=== PATIENT | male | born 1950 | race African-American/Black ===

== ENCOUNTER 2017-09-25 17:10 | Outpatient (CLI) | payer OTHER ==
[~2017-09-25] VITALS: Ht 175.3 cm; Wt 55.8 kg
[2017-09-25] MEDS ORDERED: NS IV 500 ML 500 ML IV SCH (17:59)
[2017-09-25 18:06] VITALS: BP 136/64
[2017-09-25 20:38] VITALS: BP 132/67
[2017-09-25 20:57] VITALS: BP 116/55
[2017-09-25 23:09] VITALS: BP 118/59
[2017-09-25 23:16] VITALS: BP 114/66
[2017-09-25 23:31] VITALS: BP 128/65
[2017-09-26 01:36] VITALS: BP 124/59
--- NOTE | 2017-10-06 14:44 | Physician Query-Final Dx ---
MERY MAK 10/06/17 1444: Clinic Account Progress/Dx Physician Query: Please give diagnosis Date of Service Sep 25, 2017 at 17:10 Progress Note: Mery [phone] EDITH PINEDA 10/20/17 1106: MERY MAK Oct 06, 2017 14:44 EDITH PINEDA Oct 20, 2017 11:06
== END 2017-09-26 06:45 | disposition home or self-care (01) ==
LOC: 4THo 17:10
PROVIDERS: ATTEND Internal Medicine
DX: D50.9 Iron deficiency anemia, unspecified (principal)
CPT/HCPCS: 36430; 86850; 86900; 86901; 86920

== ENCOUNTER 2017-09-28 11:09 | Inpatient (IN) | payer OTHER ==
[~2017-09-28] VITALS: Ht 175.3 cm; Wt 53.5 kg
[2017-09-28] VITALS (9 sets, daily range): BP systolic 114–137; BP diastolic 55–64
[2017-09-28] MEDS ORDERED: NS IV 1000 ML 1,000 ML IV ONE (11:50)
[2017-09-28 12:00] LABS: BASOPHILS # (AUTO) 0.1 10^3/uL (0.0-0.1); BASOPHILS % (AUTO) 0 % (0-10); EOSINOPHILS % (AUTO) 0 % (0-10); LYMPHOCYTES # (AUTO) 2.3 X 10^3 (1.0-4.0); LYMPHOCYTES % (AUTO) 10 % (12-44); MEAN CORPUSCULAR HEMOGLOBIN 31 PG (25-34); MEAN CORPUSCULAR HGB CONC 32 G/DL (32-36); MEAN CORPUSCULAR VOLUME 98 FL (80-99); MEAN PLATELET VOLUME 10.4 FL (7.4-10.4); MONOCYTES # (AUTO) 1.3 X 10^3 (0.0-1.0); MONOCYTES % (AUTO) 6 % (0-12); NEUTROPHILS % (AUTO) 84 % (42-75); PLATELET COUNT 385 10^3/uL (130-400); RED BLOOD COUNT 2.02 10^6/uL (4.35-5.85); RED CELL DISTRIBUTION WIDTH 18.2 % (10.0-14.5); WHITE BLOOD COUNT 22.7 10^3/uL (4.3-11.0)
[2017-09-28 12:03] LABS: HEMATOCRIT 20 % (40-54); HEMOGLOBIN 6.3 G/DL (13.3-17.7)
[2017-09-28] MEDS ORDERED: NS IV 500 ML 500 ML IV SCH ×2 (12:07→16:30)
--- NOTE | 2017-09-28 12:11 | ED General ---
General Chief Complaint: Abdominal/GI Problems Stated Complaint: CANNOT WALK,WEAKNESS Nursing Triage Note: PT TO ROOM 10 VIA WC BY STAFF ASSIST. CO WEAKNESS AND PASSING BLOOD IN STOOL. DENIES ABD. PAIN. PT WAS TRANSUFSED X2 UNITS BLOOD ON THURSDAY. Nursing Sepsis Screen: No Definite Risk Source of Information: Patient Exam Limitations: No Limitations History of Present Illness Date Seen by Provider: Sep 28, 2017 Time Seen by Provider: 11:51 Initial Comments Here with report of weakness. This is been going on for a month. He states this started on when he was fishing and he passed out. He was doing better until last had another fall. 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 He reports that he has increasing shortness of air with activity. Apparently was transfused 2 units of blood cells last Thursday when he had hemoglobin and found to be low last week at the clinic. He presented to the clinic due to syncope and not feeling well. He reports that he has continued shortness of breath. Denies nausea, vomiting or diarrhea. Does report blood in his stools. Timing/Duration: 1 Week, Getting Worse Severity: Moderate Associated Systoms: No Cough, No Fever/Chills; Loss of Appetite; No Nausea/ Vomiting; Shortness of Air, Weakness Allergies and Home Medications Allergies Coded Allergies: No Known Drug Allergies (Unverified , 09/25/17) Patient Home Medication List Home Medication List Reviewed: Yes Review of Systems Constitutional: see HPI; No chills, No fever; malaise, weakness EENTM: no symptoms reported Respiratory: dyspnea on exertion, short of breath Cardiovascular: No chest pain, No edema; palpitations Gastrointestinal: No hematemesis; melena; No nausea, No vomiting Genitourinary: no symptoms reported Musculoskeletal: no symptoms reported Skin: no symptoms reported All Other Systems Reviewed Negative Unless Noted: Yes Past Gstwanw-Tcffet-Sefgdw Hx Past Med/Social Hx: Reviewed Nursing Past Med/Soc Hx Patient Social History Alcohol Use: Denies Use Recreational Drug Use: No Smoking Status: Never a Smoker Recent Foreign Travel: No Contact w/Someone Who Travel: No Recent Infectious Disease Expo: No Recent Hopitalizations: Yes (BLOOD TRANSFUSIONS) Physical Abuse: No Sexual Abuse: No Past Medical History Surgeries: No Respiratory: No Cardiac: No Neurological: No Genitourinary: No Gastrointestinal: Yes Gastrointestinal Bleed Musculoskeletal: No Endocrine: No HEENT: No Nursing Suicide Risk Score: 0 Adverse Reaction/Blood Tranf: No Family Medical History No Pertinent Family Hx Physical Exam Vital Signs Vital Signs - First Documented 09/28/17 11:15 Temp 96.7 Pulse 101 Resp 16 B/P (MAP) 118/67 (84) Pulse Ox 99 O2 Delivery Room Air Capillary Refill : Less Than 3 Seconds General Appearance: No Apparent Distress, WD/WN HEENT: PERRL/EOMI, Pharynx Normal Neck: Non Tender, Supple Respiratory: Lungs Clear, Normal Breath Sounds Cardiovascular: No Murmur, Tachycardia Gastrointestinal: Non Tender, Soft Back: Normal Inspection, No CVA Tenderness, No Vertebral Tenderness Extremity: Normal Range of Motion, Non Tender Neurologic/Psychiatric: Alert, Oriented x3 Skin: Normal Color, Warm/Dry Focused Exam Lactate Level 09/28/17 14:27: Lactic Acid Level 1.70 Lactic Acid Level Laboratory Tests Test 09/28/17 14:27 Lactic Acid Level 1.70 MMOL/L (0.50-2.00) Progress/Results/Core Measures Suspected Sepsis Recent Fever Within 48 Hours: No Infection Criteria Present: None New/Unexplained Altered Menta: No Sepsis Screen: No Definite Risk SIRS Temperature:96.7 Pulse: 101 Respiratory Rate: 16 Laboratory Tests 09/28/17 11:35: White Blood Count 22.7H Blood Pressure 118 /67 Mean: 84 09/28/17 14:27: Lactic Acid Level 1.70 Laboratory Tests 09/28/17 11:35: Creatinine 0.82, INR Comment 1.1, Platelet Count 385, Total Bilirubin 0.4 Results/Orders Lab Results Laboratory Tests Test 09/28/17 11:35 09/28/17 14:27 09/28/17 14:41 Range/Units White Blood Count 22.7 H 4.3-11.0 10^3/uL Red Blood Count 2.02 L 4.35-5.85 10^6/uL Hemoglobin 6.3 *L 13.3-17.7 G/DL Hematocrit 20 *L 40-54 % Mean Corpuscular Volume 98 80-99 FL Mean Corpuscular Hemoglobin 31 25-34 PG Mean Corpuscular Hemoglobin Concent 32 32-36 G/DL Red Cell Distribution Width 18.2 H 10.0-14.5 % Platelet Count 385 130-400 10^3/uL Mean Platelet Volume 10.4 7.4-10.4 FL Neutrophils (%) (Auto) 84 H 42-75 % Lymphocytes (%) (Auto) 10 L 12-44 % Monocytes (%) (Auto) 6 0-12 % Eosinophils (%) (Auto) 0 0-10 % Basophils (%) (Auto) 0 0-10 % Neutrophils # (Auto) 19.0 H 1.8-7.8 X 10^3 Lymphocytes # (Auto) 2.3 1.0-4.0 X 10^3 Monocytes # (Auto) 1.3 H 0.0-1.0 X 10^3 Eosinophils # (Auto) 0.0 0.0-0.3 10^3/uL Basophils # (Auto) 0.1 0.0-0.1 10^3/uL Neutrophils % (Manual) 80 % Lymphocytes % (Manual) 6 % Monocytes % (Manual) 11 % Eosinophils % (Manual) 0 % Basophils % (Manual) 0 % Band Neutrophils 3 % Nucleated Red Blood Cells 1 Polychromasia MODERATE Poikilocytosis SLIGHT Anisocytosis MODERATE Target Cells SLIGHT Stomatocytes SLIGHT Helmet Cells SLIGHT Elliptocytes SLIGHT Acanthocytes SLIGHT Prothrombin Time 13.9 12.2-14.7 SEC INR Comment 1.1 0.8-1.4 Activated Partial Thromboplast Time 23 L 24-35 SEC Sodium Level 134 L 135-145 MMOL/L Potassium Level 4.2 3.6-5.0 MMOL/L Chloride Level 103 98-107 MMOL/L Carbon Dioxide Level 21 21-32 MMOL/L Anion Gap 10 5-14 MMOL/L Blood Urea Nitrogen 23 H 7-18 MG/DL Creatinine 0.82 0.60-1.30 MG/DL Estimat Glomerular Filtration Rate > 60 BUN/Creatinine Ratio 28 Glucose Level 145 H 70-105 MG/DL Calcium Level 8.5 8.5-10.1 MG/DL Total Bilirubin 0.4 0.1-1.0 MG/DL Aspartate Amino Transf (AST/SGOT) 13 5-34 U/L Alanine Aminotransferase (ALT/SGPT) 14 0-55 U/L Alkaline Phosphatase 55 40-136 U/L Troponin I < 0.30 <0.30 NG/ML Total Protein 5.9 L 6.4-8.2 GM/DL Albumin 3.4 3.2-4.5 GM/DL Lactic Acid Level 1.70 0.50-2.00 MMOL/L My Orders Orders - VINEET CARRASCO MD Cbc With Automated Diff (09/28/17 11:50) Comprehensive Metabolic Panel (09/28/17 11:50) Protime With Inr (09/28/17 11:50) Partial Thromboplastin Time (09/28/17 11:50) Troponin I (09/28/17 11:50) Ua Culture If Indicated (09/28/17 11:50) Chest 1 View, Ap/Pa Only (09/28/17 11:50) Ekg Tracing (09/28/17 11:50) Monitor-Rhythm Ecg Trace Only (09/28/17 11:50) Ct Head Wo (09/28/17 11:50) Saline Lock/Iv-Start (09/28/17 11:50) Ns Iv 1000 Ml (Sodium Chloride 0.9%) (09/28/17 11:50) Manual Differential (09/28/17 11:35) Consent-Obtain Consent For (09/28/17 12:07) Ns Iv 500 Ml (Sodium Chloride 0.9%) (09/28/17 12:07) Red Cells Leukocytes Reduced (09/28/17 12:07) Type And Screen (09/28/17 12:07) Ct Chest/Abdomen/Pelvis W (09/28/17 12:50) Iohexol Injection (Omnipaque 350 Mg/Ml 1 (09/28/17 13:00) Ns (Ivpb) (Sodium Chloride 0.9% Ivpb Bag (09/28/17 13:00) Blood Culture (09/28/17 13:57) Lactic Acid Analyzer (09/28/17 13:57) Medications Given in ED Current Medications Medications Dose Ordered Sig/Layla Route Start Time Stop Time Status Last Admin Dose Admin Iohexol 100 ml ONCE ONCE IV 09/28/17 13:00 09/28/17 13:07 DC 09/28/17 13:39 100 ML Sodium Chloride 100 ml ONCE ONCE IV 09/28/17 13:00 09/28/17 13:07 DC 09/28/17 13:39 100 ML Sodium Chloride 1,000 ml @ 0 mls/hr Q0M ONCE IV 09/28/17 11:50 09/28/17 11:53 DC 09/28/17 12:39 0 MLS/HR Vital Signs/I&O 09/28/17 09/28/17 09/28/17 11:15 13:46 14:01 Temp 96.7 96.7 96.6 Pulse 101 92 89 Resp 16 16 18 B/P (MAP) 118/67 (84) 135/59 121/59 Pulse Ox 99 99 99 O2 Delivery Room Air Room Air Room Air Capillary Refill : Less Than 3 Seconds Blood Pressure Mean: 84 Progress Note : Progress Note Seen and evaluated. IV, labs, EKG and chest x-ray ordered. Blood cultures and lactic acid elevated due to high white count. We will get CT of the head given his previous falls and blood dyscrasias. Monitor patient. 1210: Hemoglobin noted. 6.3. Type and cross for 4 units and anticipate transfusing 2. Patient will require admission. He was due to see Dr. Morris tomorrow in clinic. I will call him regarding consult. 1250: [place] lesion noted on chest x-ray. I discussed the case with the radiologist. We will get CT of the chest with contrast. Due to rectal bleeding and now concerns about cancer, I will go ahead and get contrast scan just pelvis since he is getting the contrast anyway. Type and cross pending still. Monitor patient. 1300: I discussed the case with Dr. Morris. He will see the patient in consult. Pending CT scans. 1420: Admit, inpatient status. Per she noted blood has been initiated. Patient will require additional blood transfusion. Also found probable metastatic lung cancer and metastatic disease to the adrenal gland all on the left side. This will need further workup. Discuss with her primary, Dr. Norman. She accepts patient for admission. Admit, inpatient status. Patient agrees to plan. ECG Initial ECG Impression Date: Sep 28, 2017 Initial ECG Impression Time: 11:56 Initial ECG Rate: 89 Initial ECG Rhythm: Normal Sinus Comment Sinus rhythm with PACs. No evidence of ST elevation VA. Left axis deviation. No previous available for comparison. Interpreted by me. Diagnostic Imaging Diagonstic Imaging: Xray Plain Films/CT/US/NM/MRI: [facility] [place] [place] NAME: DAVID TRAYLOR [facility] REC#: [id number] PT STATUS: REG ER : 1950 PHYSICIAN: VINEET CARRASCO MD ADMIT DATE: 09/28/17/ER Draft Date of Exam:09/28/17 CHEST 1 VIEW, AP/PA ONLY INDICATION: Weakness. COMPARISON: None. FINDINGS: A single frontal view of the chest was obtained. The heart size is normal. There is no central venous congestion. There is, however, some nodular prominence of the left hilum. This may be due to pulmonary artery enlargement although underlying adenopathy is not excluded. The right hilum appears unremarkable. There are findings suggestive of COPD. Additionally, there is a 2.1 cm nodule in the left midlung with possible central cavitation. This is nonspecific and could represent an area of pulmonary abscess or infectious or granulomatous process with cavitation or possibly neoplasm. A CT scan of the chest is suggested for further evaluation. IMPRESSION: There is a 2.1 cm indeterminate possible cavitary nodule in the left midlung and there is some nodular prominence of the left hilum, concerning for some underlying adenopathy or at minimum pulmonary artery enlargement. A CT scan of the chest is recommended for further evaluation. Chronic findings of COPD are also suspected. The report was called to DARIAN Maldonado [facility] by MAK@ 12:32PM. Dictated on workstation # [id number] Dict: 09/28/17 1221 Trans: 09/28/17 1233 MAK [id number] Interpreted by: ANTHONY POWER DO Electronically signed by: Shaniqua Imaging: CT Plain Films/CT/US/NM/MRI: head Comments VIA [place], [place] NAME: DAVID TRAYLOR Simi [facility] REC#: [id number] PT STATUS: REG ER : 1950 PHYSICIAN: VINEET CARRASCO MD ADMIT DATE: 09/28/17/ER Draft Date of Exam:09/28/17 CT HEAD WO PROCEDURE: CT head without contrast. TECHNIQUE: Multiple contiguous axial images were obtained through the brain without the use of intravenous contrast. INDICATION: Weakness and lightheadedness Comparison: None Findings: No acute intracranial hemorrhage, mass effect or edema is seen. Bowen-white junction is preserved. Ventricles appear normal. There are a few minimal subtle areas of hypodensity in the periventricular white matter, which is nonspecific but likely related to chronic microvascular ischemic change. No acute focal lesion is suspected. The paranasal sinuses and mastoids are clear as visualized. IMPRESSION: No acute intracranial abnormalities demonstrated. Dictated on workstation # [id number] Dict: 09/28/17 1225 Trans: 09/28/17 1230 [facility] [id number] Interpreted by: ANTHONY POWER DO Electronically signed by: Samanthagonstic Imaging: CT Plain Films/CT/US/NM/MRI: abdomen, pelvis Comments [place]IA [place], [place] NAME: DAVID TRAYLOR [facility] REC#: [id number] PT STATUS: REG ER : 1950 PHYSICIAN: VINEET CARRASCO MD ADMIT DATE: 09/28/17/ER Draft Date of Exam:09/28/17 CT CHEST/ABDOMEN/PELVIS W PROCEDURE: CT chest, abdomen, and pelvis with contrast. TECHNIQUE: Multiple contiguous axial images were obtained through the chest, abdomen, and pelvis after the administration of intravenous contrast. INDICATION: Abdominal pain and weakness. No prior studies are available for comparison. CT chest: No axillary lymphadenopathy is identified. No mediastinal lymphadenopathy is seen. There is a mass in the left hilum measuring 2.5 cm in diameter. Right hilum is unremarkable. No pericardial or pleural fluid is detected. Severe centrilobular emphysematous changes are identified in both lungs. There is a cavitary mass in the superior segment of the left lower lobe measuring 2.2 cm in diameter. No other lung masses are seen. CT abdomen and pelvis: Right lobe of liver contains tiny low densities, too small to characterize but likely cysts. The gallbladder is unremarkable. The pancreas and spleen are unremarkable. Left adrenal gland is unremarkable. There is a mass involving the right adrenal gland measuring 7.3 x 6.2 cm. This does not appear to be fat containing. Kidneys are unremarkable. Aorta is nonaneurysmal. The small and large bowel loops are of normal caliber. No obstruction is seen. There is no ascites. The bladder is unremarkable. The prostate gland is unremarkable. IMPRESSION: 1. Cavitary mass superior segment left lower lobe. There is also left hilar mass. Features are concerning for primary lung malignancy with left hilar metastasis. In addition, there is a large mass involving the right adrenal gland, suggestive of a metastatic lesion as well. No other significant abnormality in the abdomen or pelvis is seen. Dictated on workstation # [id number] Dict: 09/28/17 1346 Trans: 09/28/17 1359 [facility] [id number] Interpreted by: PEARL SHAVER MD Electronically signed by: Departure Communication (Admissions) Time/Spoke to Admitting Phy: 14:21 Time/Spoke to Consulting Phy: 12:56 Impression Primary Impression: Profound anemia Qualified Codes: D64.9 - Anemia, unspecified Additional Impressions: Lung mass Adrenal mass, left Disposition: ADMITTED INPATIENT Condition: Stable Admissions Decision to Admit Reason: Admit from ER (General) Decision to Admit/Date: Sep 28, 2017 Time/Decision to Admit Time: 14:21 Departure-Patient Inst. Referrals: NO,LOCAL PHYSICIAN (PCP/Family) Primary Care Physician VINEET CARRASCO MD Sep 28, 2017 12:11
[2017-09-28 12:27] LABS: ALANINE AMINOTRANSFERASE 14 U/L (0-55); ALBUMIN 3.4 GM/DL (3.2-4.5); ALKALINE PHOSPHATASE 55 U/L (40-136); BILIRUBIN,TOTAL 0.4 MG/DL (0.1-1.0); BUN/CREATININE RATIO 28; CALCIUM 8.5 MG/DL (8.5-10.1); CARBON DIOXIDE 21 MMOL/L (21-32); CHLORIDE 103 MMOL/L (98-107); CREATININE SERUM 0.82 MG/DL (0.60-1.30); GFR ESTIMATED > 60; GLUCOSE 145 MG/DL (70-105); POTASSIUM 4.2 MMOL/L (3.6-5.0); SODIUM 134 MMOL/L (135-145); TOTAL PROTEIN 5.9 GM/DL (6.4-8.2)
--- NOTE | 2017-09-28 12:30 | Diagnostic Imaging Report ---
PROCEDURE: CT head without contrast. TECHNIQUE: Multiple contiguous axial images were obtained through the brain without the use of intravenous contrast. INDICATION: Weakness and lightheadedness Comparison: None Findings: No acute intracranial hemorrhage, mass effect or edema is seen. Bowen-white junction is preserved. Ventricles appear normal. There are a few minimal subtle areas of hypodensity in the periventricular white matter, which is nonspecific but likely related to chronic microvascular ischemic change. No acute focal lesion is suspected. The paranasal sinuses and mastoids are clear as visualized. IMPRESSION: No acute intracranial abnormalities demonstrated. Dictated by: Dictated on workstation # [id number]
--- NOTE | 2017-09-28 12:33 | Diagnostic Imaging Report ---
INDICATION: Weakness. COMPARISON: None. FINDINGS: A single frontal view of the chest was obtained. The heart size is normal. There is no central venous congestion. There is, however, some nodular prominence of the left hilum. This may be due to pulmonary artery enlargement although underlying adenopathy is not excluded. The right hilum appears unremarkable. There are findings suggestive of COPD. Additionally, there is a 2.1 cm nodule in the left midlung with possible central cavitation. This is nonspecific and could represent an area of pulmonary abscess or infectious or granulomatous process with cavitation or possibly neoplasm. A CT scan of the chest is suggested for further evaluation. IMPRESSION: There is a 2.1 cm indeterminate possible cavitary nodule in the left midlung and there is some nodular prominence of the left hilum, concerning for some underlying adenopathy or at minimum pulmonary artery enlargement. A CT scan of the chest is recommended for further evaluation. Chronic findings of COPD are also suspected. The report was called to DAR[facility] Maldonado [facility] by MAK@ 12:32PM. Dictated by: Dictated on workstation # [id number]
[2017-09-28 12:56] LABS: INR 1.1 (0.8-1.4); PROTHROMBIN TIME PATIENT 13.9 SEC (12.2-14.7)
[2017-09-28] MEDS ORDERED: NS 100 ML (IVPB) BAG IV ONE (13:00)
[2017-09-28] MEDS ORDERED: IOHEXOL 350 MG/ML 100 ML (OMNIPAQUE 350) VIAL IV ONE (13:00)
[2017-09-28 13:23] LABS: ANISOCYTOSIS MODERATE; BAND NEUTROPHILS 3 %; BASOPHILS % (MANUAL) 0 %; EOSINOPHILS % (MANUAL) 0 %; LYMPHOCYTES % (MANUAL) 6 %; MONOCYTES % (MANUAL) 11 %; NEUTROPHILS % (MANUAL) 80 %; POIKILOCYTOSIS SLIGHT; POLYCHROMASIA MODERATE
[2017-09-28 13:24] LABS: ACANTHOCYTES SLIGHT; ELLIPT/OVALOCYTES SLIGHT; HELMET/BITE CELLS SLIGHT; NUCLEATED RED BLOOD CELLS 1; STOMATOCYTES SLIGHT; TARGET CELLS SLIGHT
--- NOTE | 2017-09-28 13:59 | Diagnostic Imaging Report ---
PROCEDURE: CT chest, abdomen, and pelvis with contrast. TECHNIQUE: Multiple contiguous axial images were obtained through the chest, abdomen, and pelvis after the administration of intravenous contrast. INDICATION: Abdominal pain and weakness. No prior studies are available for comparison. CT chest: No axillary lymphadenopathy is identified. No mediastinal lymphadenopathy is seen. There is a mass in the left hilum measuring 2.5 cm in diameter. Right hilum is unremarkable. No pericardial or pleural fluid is detected. Severe centrilobular emphysematous changes are identified in both lungs. There is a cavitary mass in the superior segment of the left lower lobe measuring 2.2 cm in diameter. No other lung masses are seen. CT abdomen and pelvis: Right lobe of liver contains tiny low densities, too small to characterize but likely cysts. The gallbladder is unremarkable. The pancreas and spleen are unremarkable. Left adrenal gland is unremarkable. There is a mass involving the right adrenal gland measuring 7.3 x 6.2 cm. This does not appear to be fat containing. Kidneys are unremarkable. Aorta is nonaneurysmal. The small and large bowel loops are of normal caliber. No obstruction is seen. There is no ascites. The bladder is unremarkable. The prostate gland is unremarkable. IMPRESSION: 1. Cavitary mass superior segment left lower lobe. There is also left hilar mass. Features are concerning for primary lung malignancy with left hilar metastasis. In addition, there is a large mass involving the right adrenal gland, suggestive of a metastatic lesion as well. No other significant abnormality in the abdomen or pelvis is seen. Dictated by: Dictated on workstation # [id number]
[2017-09-28 14:47] LABS: BILIRUBIN,URINE NEGATIVE (NEGATIVE); CLARITY,URINE CLEAR; COLOR,URINE YELLOW; GLUCOSE, URINE (UA) NEGATIVE (NEGATIVE); KETONES,URINE NEGATIVE (NEGATIVE); LEUKOCYTE ESTERASE ,URINE NEGATIVE (NEGATIVE); NITRITE,URINE NEGATIVE (NEGATIVE); PH,URINE 5 (5-9); PROTEIN,URINE 1+ (NEGATIVE); UROBILINOGEN,URINE NORMAL (NORMAL)
[2017-09-28 15:09] LABS: BACTERIA,URINE NEGATIVE /HPF; WBC,URINE RARE /HPF
--- NOTE | 2017-09-28 15:26 | Consultation ---
History of Present Illness History of Present Illness Patient Consulted On(emiliano/time) 09/28/17 15:21 Time Seen by Provider: 14:48 History of Present Illness Surgery asked to consult regarding GI bleed and anemia. HPI per ED: Here with report of weakness. This is been going on for a month. He states this started on when he was fishing and he passed out. He was doing better until last had another fall. 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 He reports that he has increasing shortness of air with activity. Apparently was transfused 2 units of blood cells last Thursday when he had hemoglobin and found to be low last week at the clinic. He presented to the clinic due to syncope and not feeling well. He reports that he has continued shortness of breath. Denies nausea, vomiting or diarrhea. Does report blood in his stools. Timing/Duration: 1 Week, Getting Worse Severity: Moderate Associated Systoms: No Cough, No Fever/Chills; Loss of Appetite; No Nausea/ Vomiting; Shortness of Air, Weakness Pt was actually scheduled to see me in the office tomorrow. He states he has actually seen blood in his BM's for about 6-7 months; "but has been light and only recently has it started looking tarry". He denies abdominal pain, denies constipation. He states he has been able to eat all weekend because he has been so weak, but is hungry. Allergies and Home Medications Allergies Coded Allergies: No Known Drug Allergies (Unverified , 09/25/17) Patient Home Medication List Home Medication List Reviewed: Yes Past Kukdgvs-Iujiqz-Gliavy Hx Patient Social History Alcohol Use: Denies Use Recreational Drug Use: Yes Drug of Choice: POT Smoking Status: Current Everyday Smoker Type Used: Cigarettes Recent Foreign Travel: No Contact w/Someone Who Travel: No Recent Infectious Disease Expo: No Recent Hopitalizations: Yes (BLOOD TRANSFUSIONS) Surgeries History of Surgeries: No Respiratory History of Respiratory Disorde: No Cardiovascular History of Cardiac Disorders: No Neurological History of Neurological Disord: No Genitourinary History of Genitourinary Disor: No Gastrointestinal History of Gastrointestinal Di: Yes Gastrointestinal Disorders: Gastrointestinal Bleed Musculoskeletal History of Musculoskeletal Dis: No Endocrine History of Endocrine Disorders: No HEENT History of HEENT Disorders: No Psychosocial History of Psychiatric Problem: No Integumentary History of Skin or Integumenta: No Blood Transfusions History of Blood Disorders: Yes Adverse Reaction to a Blood Tr: No Family Medical History Significant Family History: Cancer (prostate, lung and brain) Review of Systems-General Constitutional: No chills, No diaphoresis; dizziness, malaise, weakness EENTM: No blurred vision, No double vision, No mouth pain, No mouth swelling, No epistaxis, No throat swelling Respiratory: No cough, No dyspnea on exertion, No hemoptysis, No short of breath Cardiovascular: No chest pain, No edema, No palpitations Gastrointestinal: No abdominal pain, No constipation, No diarrhea, No hematemesis; melena, other (hematochezia) Genitourinary: No dysuria; frequency; No hematuria; hesitancy, nocturia Musculoskeletal: No back pain; joint pain, joint swelling, muscle stiffness Skin: No change in color, No change in hair/nails Psychiatric/Neurological: Denies Anxiety, Denies Depressed, Denies Seizure, Denies Tingling, Denies Tremors Other pt denies any abnormal bleeding or bruising, denies any heat or cold intolerance Physical Exam-General Problems Physical Exam Vital Signs Vital Signs - First Documented 09/28/17 11:15 Temp 96.7 Pulse 101 Resp 16 B/P (MAP) 118/67 (84) Pulse Ox 99 O2 Delivery Room Air Capillary Refill : Less Than 3 Seconds General Appearance: mild distress, thin Eyes: Bilateral Eye PERRL, Bilateral Eye EOMI HEENT: pharynx normal; No scleral icterus (R), No scleral icterus (L), No pale conjunctivae (R), No pale conjunctivae (L); other (poor dentition) Neck: non-tender, full range of motion, supple, normal inspection Respiratory: chest non-tender, lungs clear, normal breath sounds, no respiratory distress Cardiovascular: regular rate, rhythm, no edema, no gallop, no JVD, no murmur Gastrointestinal: normal bowel sounds, non tender, soft, no organomegaly, no pulsatile mass Back: no CVA tenderness, no vertebral tenderness Extremities: normal range of motion, non-tender, normal inspection, no pedal edema, no calf tenderness 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, no motor/sensory deficits, alert, normal mood/affect, oriented x 3 Skin: normal color, warm/dry Lymphatic: no adenopathy (neck, axilla or groin) Data Review Labs Laboratory Tests 09/28/17 11:35: White Blood Count 22.7H, Red Blood Count 2.02L, Hemoglobin 6.3*L, Hematocrit 20* L, Mean Corpuscular Volume 98, Mean Corpuscular Hemoglobin 31, Mean Corpuscular Hemoglobin Concent 32, Red Cell Distribution Width 18.2H, Platelet Count 385, Mean Platelet Volume 10.4, Neutrophils (%) (Auto) 84H, Lymphocytes (%) (Auto) 10L, Monocytes (%) (Auto) 6, Eosinophils (%) (Auto) 0, Basophils (%) (Auto) 0, Neutrophils # (Auto) 19.0H, Lymphocytes # (Auto) 2.3, Monocytes # (Auto) 1.3H, Eosinophils # (Auto) 0.0, Basophils # (Auto) 0.1, Neutrophils % (Manual) 80, Lymphocytes % (Manual) 6, Monocytes % (Manual) 11, Eosinophils % (Manual) 0, Basophils % (Manual) 0, Band Neutrophils 3, Nucleated Red Blood Cells 1, Polychromasia MODERATE, Poikilocytosis SLIGHT, Anisocytosis MODERATE, Target Cells SLIGHT, Stomatocytes SLIGHT, Helmet Cells SLIGHT, Elliptocytes SLIGHT, Acanthocytes SLIGHT, Prothrombin Time 13.9, INR Comment 1.1, Activated Partial Thromboplast Time 23L, Sodium Level 134L, Potassium Level 4.2, Chloride Level 103, Carbon Dioxide Level 21, Anion Gap 10, Blood Urea Nitrogen 23H, Creatinine 0.82, Estimat Glomerular Filtration Rate > 60, BUN/Creatinine Ratio 28, Glucose Level 145H, Calcium Level 8.5, Total Bilirubin 0.4, Aspartate Amino Transf (AST/ SGOT) 13, Alanine Aminotransferase (ALT/SGPT) 14, Alkaline Phosphatase 55, Troponin I < 0.30, Total Protein 5.9L, Albumin 3.4 09/28/17 14:27: Lactic Acid Level 1.70 09/28/17 14:41: Urine Color YELLOW, Urine Clarity CLEAR, Urine pH 5, Urine Specific [place] 1.010L, Urine Protein 1+H, Urine Glucose (UA) NEGATIVE, Urine Ketones NEGATIVE, Urine Nitrite NEGATIVE, Urine Bilirubin NEGATIVE, Urine Urobilinogen NORMAL, Urine Leukocyte Esterase NEGATIVE, Urine RBC (Auto) NEGATIVE, Urine RBC NONE, Urine WBC RARE, Urine Squamous Epithelial Cells NONE, Urine Renal Epithelial Cells NONE, Urine Crystals NONE, Urine Bacteria NEGATIVE, Urine Casts NONE, Urine Mucus NEGATIVE, Urine Culture Indicated NO Assessment/Plan Assessment/Plan Assessment/Plan 1. GI Bleed 2. Anemia secondary to #1 3. Lung mass x 2, suspected Lung CA 3. Adrenal mass - right Pt is being admitted for his anemia and medicine will work up lung masses. He is currently getting transfused and will get IVF and pain control as needed. I told pt to drink/eat lots of clear fluids (jello, broth, juices) and will give him bowel prep to do colonoscopy tomorrow. Discussed risks and complications not limited to pain, bleeding, infection and possible intestinal perforation. All questions answered to his satisfaction. [facility]. NURA KENDRICK DO Sep 28, 2017 15:26
[2017-09-28] MEDS ORDERED: BISACODYL 5 MG (DULCOLAX) TABLET PO NR (15:45)
[2017-09-28] MEDS ORDERED: MAGNESIUM CITRATE 300 ML BTL PO NR (15:45)
[2017-09-28] MEDS ORDERED: ONDANSETRON 4 MG/2 ML (SDV) Z0FRAN IV PRN (16:30)
[2017-09-28] MEDS ORDERED: CATHETER FLUSH 10 ML SYR IV PRN (16:30)
[2017-09-28] MEDS ORDERED: fentaNYL INJECTION 100 MCG/2 ML AMP IV PRN (16:30)
[2017-09-28] MEDS: NS IV 1000 ML 1,000 ML IV SCH (17:03)
[2017-09-28] MEDS ORDERED: RT-ALBUTEROL SULF 2.5 MG/3 ML PRE-MIX VIAL INH PRN (19:45)
[2017-09-29] VITALS (12 sets, daily range): BP systolic 90–127; BP diastolic 50–59
[2017-09-29 07:44] LABS: BASOPHILS # (AUTO) 0.1 10^3/uL (0.0-0.1); BASOPHILS % (AUTO) 0 % (0-10); EOSINOPHILS # (AUTO) 0.1 10^3/uL (0.0-0.3); EOSINOPHILS % (AUTO) 1 % (0-10); LYMPHOCYTES # (AUTO) 1.9 X 10^3 (1.0-4.0); LYMPHOCYTES % (AUTO) 11 % (12-44); MEAN CORPUSCULAR HEMOGLOBIN 30 PG (25-34); MEAN CORPUSCULAR HGB CONC 32 G/DL (32-36); MEAN CORPUSCULAR VOLUME 94 FL (80-99); MEAN PLATELET VOLUME 10.2 FL (7.4-10.4); MONOCYTES # (AUTO) 1.3 X 10^3 (0.0-1.0); MONOCYTES % (AUTO) 7 % (0-12); NEUTROPHILS # (AUTO) 13.7 X 10^3 (1.8-7.8); NEUTROPHILS % (AUTO) 80 % (42-75); PLATELET COUNT 285 10^3/uL (130-400); RED BLOOD COUNT 2.14 10^6/uL (4.35-5.85); RED CELL DISTRIBUTION WIDTH 19.4 % (10.0-14.5)
[2017-09-29 07:47] LABS: HEMOGLOBIN 6.5 G/DL (13.3-17.7)
[2017-09-29 07:48] LABS: HEMATOCRIT 20 % (40-54)
[2017-09-29] MEDS: NS IV 1000 ML 1,000 ML IV SCH (07:48)
[2017-09-29] MEDS ORDERED: IBUP-30 PO (07:49)
[2017-09-29] MEDS ORDERED: CALC500T7 PO (07:52)
[2017-09-29 07:59] LABS: ALANINE AMINOTRANSFERASE 14 U/L (0-55); ALBUMIN 2.6 GM/DL (3.2-4.5); ALKALINE PHOSPHATASE 41 U/L (40-136); BILIRUBIN,TOTAL 0.8 MG/DL (0.1-1.0); BUN/CREATININE RATIO 28; CALCIUM 7.2 MG/DL (8.5-10.1); CARBON DIOXIDE 22 MMOL/L (21-32); CHLORIDE 107 MMOL/L (98-107); CREATININE SERUM 0.74 MG/DL (0.60-1.30); GFR ESTIMATED > 60; GLUCOSE 145 MG/DL (70-105); POTASSIUM 4.1 MMOL/L (3.6-5.0); SODIUM 135 MMOL/L (135-145); TOTAL PROTEIN 4.2 GM/DL (6.4-8.2)
[2017-09-29] MEDS ORDERED: NS IV 500 ML 500 ML IV SCH (08:12)
[2017-09-29] MEDS ORDERED: MAGNESIUM CITRATE 300 ML BTL PO NR (08:30)
--- NOTE | 2017-09-29 10:04 | History & Physicial (CHS) ---
HPI History of Present Illness: Pt seen at [facility] clinic on 09/25 with report of passing out while fishing because he "got overheated". His Hgb in the office on 09/25 was 7.3, he was also noted to have hemoccult positive stools. He was apparently transfused two units PRBC last Thursday due to his symptomatic anemia. He has continued to have weakness, dizziness, and blood in his stool, as well as shortness of breath. When he had another fall, he presented to the ED yesterday and was found to have a hemoglobin of 6.3. He was also noted to have a lung mass with suspected metastatic disease to both other areas of lung and his adrenal gland. General surgery was consulted secondary to his report of bloody stools and the patient was admitted for transfusion of PRBC and stabilization. Pt was originally scheduled to see Dr. Morris in his office this week regarding blood in his stools, which has been present for ~6 months. Source: RN/, RN notes reviewed, old records Date seen by provider: Sep 29, 2017 Time Seen by Provider: 18:00 Attending Physician Carmencita Norman DO PCP Alicia FARMER, [facility] SEK Consult General Surgery - Dr. Morris Date of Admission Sep 28, 2017 at 15:29 Home Medications Home Medications Reviewed patient Home Medication Reconciliation performed by pharmacy medication reconciliations fabrication technician and/or nursing. Patients Allergies have been reviewed. Allergies Coded Allergies: codeine (Verified Allergy, Unknown, 09/28/17) DTA-Fyzguq-Tbkyvz Hx Patient Social History Marrital Status: Living Status: lives independently Employed/Student: unemployed Alcohol Use: Rarely Uses Recreational Drug Use: No Drug of Choice: POT Smoking Status: Current Everyday Smoker Type Used: Cigarettes Recent Foreign Travel: No Contact w/other who traveled: No Recent Hopitalizations: Yes (BLOOD TRANSFUSIONS - as outpatient) Recent Infectious Disease Expo: No Physical Abuse Screen: No Sexual Abuse: No Immunizations Up To Date Tetanus Booster (TDap): Unknown Past Medical History Tobacco Abuse THC Abuse Bloody Stools x6 months Family Medical History Significant Family History: Cancer (prostate, lung and brain) Family History: Cancer 19 MOTHER G8 SISTER (bone cancer) FH: cancer Review of Systems ([facility]) Constitutional: see HPI EENTM: no symptoms reported Respiratory: see HPI, dyspnea on exertion, short of breath Cardiovascular: see HPI, syncope Gastrointestinal: see HPI Genitourinary: no symptoms reported Musculoskeletal: no symptoms reported Skin: no symptoms reported Psychiatric/Neurological: No Symptoms Reported Reviewed Test Results Reviewed Test Results Lab 09/28/17 14:27: Lactic Acid Level 1.70 Laboratory Tests Test 09/28/17 11:35 09/28/17 14:27 09/28/17 14:41 09/29/17 06:55 Range/Units White Blood Count 22.7 H 17.0 H 4.3-11.0 10^3/uL Red Blood Count 2.02 L 2.14 L 4.35-5.85 10^6/uL Hemoglobin 6.3 *L 6.5 *L 13.3-17.7 G/DL Hematocrit 20 *L 20 *L 40-54 % Mean Corpuscular Volume 98 94 80-99 FL Mean Corpuscular Hemoglobin 31 30 25-34 PG Mean Corpuscular Hemoglobin Concent 32 32 32-36 G/DL Red Cell Distribution Width 18.2 H 19.4 H 10.0-14.5 % Platelet Count 385 285 130-400 10^3/uL Mean Platelet Volume 10.4 10.2 7.4-10.4 FL Neutrophils (%) (Auto) 84 H 80 H 42-75 % Lymphocytes (%) (Auto) 10 L 11 L 12-44 % Monocytes (%) (Auto) 6 7 0-12 % Eosinophils (%) (Auto) 0 1 0-10 % Basophils (%) (Auto) 0 0 0-10 % Neutrophils # (Auto) 19.0 H 13.7 H 1.8-7.8 X 10^3 Lymphocytes # (Auto) 2.3 1.9 1.0-4.0 X 10^3 Monocytes # (Auto) 1.3 H 1.3 H 0.0-1.0 X 10^3 Eosinophils # (Auto) 0.0 0.1 0.0-0.3 10^3/uL Basophils # (Auto) 0.1 0.1 0.0-0.1 10^3/uL Neutrophils % (Manual) 80 % Lymphocytes % (Manual) 6 % Monocytes % (Manual) 11 % Eosinophils % (Manual) 0 % Basophils % (Manual) 0 % Band Neutrophils 3 % Nucleated Red Blood Cells 1 Polychromasia MODERATE Poikilocytosis SLIGHT Anisocytosis MODERATE Target Cells SLIGHT Stomatocytes SLIGHT Helmet Cells SLIGHT Elliptocytes SLIGHT Acanthocytes SLIGHT Prothrombin Time 13.9 12.2-14.7 SEC INR Comment 1.1 0.8-1.4 Activated Partial Thromboplast Time 23 L 24-35 SEC Sodium Level 134 L 135 135-145 MMOL/L Potassium Level 4.2 4.1 3.6-5.0 MMOL/L Chloride Level 103 107 98-107 MMOL/L Carbon Dioxide Level 21 22 21-32 MMOL/L Anion Gap 10 6 5-14 MMOL/L Blood Urea Nitrogen 23 H 21 H 7-18 MG/DL Creatinine 0.82 0.74 0.60-1.30 MG/DL Estimat Glomerular Filtration Rate > 60 > 60 BUN/Creatinine Ratio 28 28 Glucose Level 145 H 145 H 70-105 MG/DL Calcium Level 8.5 7.2 L 8.5-10.1 MG/DL Total Bilirubin 0.4 0.8 0.1-1.0 MG/DL Aspartate Amino Transf (AST/SGOT) 13 18 5-34 U/L Alanine Aminotransferase (ALT/SGPT) 14 14 0-55 U/L Alkaline Phosphatase 55 41 40-136 U/L Troponin I < 0.30 <0.30 NG/ML Total Protein 5.9 L 4.2 L 6.4-8.2 GM/DL Albumin 3.4 2.6 L 3.2-4.5 GM/DL Lactic Acid Level 1.70 0.50-2.00 MMOL/L Urine Color YELLOW Urine Clarity CLEAR Urine pH 5 5-9 Urine Specific [place] 1.010 L 1.016-1.022 Urine Protein 1+ H NEGATIVE Urine Glucose (UA) NEGATIVE NEGATIVE Urine Ketones NEGATIVE NEGATIVE Urine Nitrite NEGATIVE NEGATIVE Urine Bilirubin NEGATIVE NEGATIVE Urine Urobilinogen NORMAL NORMAL MG/DL Urine Leukocyte Esterase NEGATIVE NEGATIVE Urine RBC (Auto) NEGATIVE NEGATIVE Urine RBC NONE /HPF Urine WBC RARE /HPF Urine Squamous Epithelial Cells NONE /HPF Urine Renal Epithelial Cells NONE /HPF Urine Crystals NONE /LPF Urine Bacteria NEGATIVE /HPF Urine Casts NONE /LPF Urine Mucus NEGATIVE /LPF Urine Culture Indicated NO Radiology Date of Exam: 09/28/17 CT HEAD WO PROCEDURE: CT head without contrast. TECHNIQUE: Multiple contiguous axial images were obtained through the brain without the use of intravenous contrast. INDICATION: Weakness and lightheadedness Comparison: None Findings: No acute intracranial hemorrhage, mass effect or edema is seen. Bowen-white junction is preserved. Ventricles appear normal. There are a few minimal subtle areas of hypodensity in the periventricular white matter, which is nonspecific but likely related to chronic microvascular ischemic change. No acute focal lesion is suspected. The paranasal sinuses and mastoids are clear as visualized. IMPRESSION: No acute intracranial abnormalities demonstrated. Date of Exam: 09/28/17 CHEST 1 VIEW, AP/PA ONLY INDICATION: Weakness. COMPARISON: None. FINDINGS: A single frontal view of the chest was obtained. The heart size is normal. There is no central venous congestion. There is, however, some nodular prominence of the left hilum. This may be due to pulmonary artery enlargement although underlying adenopathy is not excluded. The right hilum appears unremarkable. There are findings suggestive of COPD. Additionally, there is a 2.1 cm nodule in the left midlung with possible central cavitation. This is nonspecific and could represent an area of pulmonary abscess or infectious or granulomatous process with cavitation or possibly neoplasm. A CT scan of the chest is suggested for further evaluation. IMPRESSION: There is a 2.1 cm indeterminate possible cavitary nodule in the left midlung and there is some nodular prominence of the left hilum, concerning for some underlying adenopathy or at minimum pulmonary artery enlargement. A CT scan of the chest is recommended for further evaluation. Chronic findings of COPD are also suspected. Date of Exam: 09/28/17 CT CHEST/ABDOMEN/PELVIS W PROCEDURE: CT chest, abdomen, and pelvis with contrast. TECHNIQUE: Multiple contiguous axial images were obtained through the chest, abdomen, and pelvis after the administration of intravenous contrast. INDICATION: Abdominal pain and weakness. No prior studies are available for comparison. CT chest: No axillary lymphadenopathy is identified. No mediastinal lymphadenopathy is seen. There is a mass in the left hilum measuring 2.5 cm in diameter. Right hilum is unremarkable. No pericardial or pleural fluid is detected. Severe centrilobular emphysematous changes are identified in both lungs. There is a cavitary mass in the superior segment of the left lower lobe measuring 2.2 cm in diameter. No other lung masses are seen. CT abdomen and pelvis: Right lobe of liver contains tiny low densities, too small to characterize but likely cysts. The gallbladder is unremarkable. The pancreas and spleen are unremarkable. Left adrenal gland is unremarkable. There is a mass involving the right adrenal gland measuring 7.3 x 6.2 cm. This does not appear to be fat containing. Kidneys are unremarkable. Aorta is nonaneurysmal. The small and large bowel loops are of normal caliber. No obstruction is seen. There is no ascites. The bladder is unremarkable. The prostate gland is unremarkable. IMPRESSION: 1. Cavitary mass superior segment left lower lobe. There is also left hilar mass. Features are concerning for primary lung malignancy with left hilar metastasis. In addition, there is a large mass involving the right adrenal gland, suggestive of a metastatic lesion as well. No other significant abnormality in the abdomen or pelvis is seen. Physical Exam-([facility]) Physical Exam Vital Signs VS - Last 72 Hours, by Label 09/28/17 09/28/17 09/28/17 09/28/17 11:15 13:46 14:01 15:13 Temp 96.7 96.7 96.6 97.0 Pulse 101 92 89 83 Resp 16 16 18 19 B/P (MAP) 118/67 (84) 135/59 121/59 117/60 Pulse Ox 99 99 99 99 O2 Delivery Room Air Room Air Room Air Room Air 09/28/17 09/28/17 09/28/17 09/28/17 16:01 16:30 18:48 18:48 Temp 97.7 Pulse 85 90 Resp 18 B/P (MAP) 137/64 (88) Pulse Ox 97 93 93 O2 Delivery Room Air Room Air Room Air FiO2 21 09/28/17 09/28/17 09/28/17 09/28/17 19:59 20:00 20:25 23:00 Temp 98.9 98.9 98.8 98.6 Pulse 89 89 82 74 Resp 18 18 20 18 B/P (MAP) 114/55 114/55 (74) 115/58 119/59 Pulse Ox 97 97 95 96 O2 Delivery Room Air Room Air Room Air Room Air 09/29/17 09/29/17 09/29/17 09/29/17 00:19 04:15 07:27 07:43 Temp 98.3 98.5 98.3 Pulse 76 82 80 Resp 18 18 16 B/P (MAP) 110/55 (73) 121/55 (77) 106/53 (70) Pulse Ox 97 96 97 O2 Delivery Room Air Room Air Room Air Room Air 09/29/17 09/29/17 09/29/17 09/29/17 09:25 09:50 11:46 12:13 Temp 97.1 98.5 98.9 97.7 Pulse 80 76 71 71 Resp 18 18 18 18 B/P (MAP) 106/52 119/57 106/57 106/57 Pulse Ox 97 97 99 98 O2 Delivery Room Air Room Air Room Air Room Air 09/29/17 09/29/17 09/29/17 09/29/17 12:15 12:35 13:30 15:10 Temp 97.7 97.9 97.2 97.7 Pulse 75 69 72 69 Resp 16 18 16 18 B/P (MAP) 106/57 (73) 111/59 90/50 127/59 (81) Pulse Ox 98 97 100 96 O2 Delivery Room Air Room Air Room Air Room Air 09/29/17 09/29/17 09/30/17 09/30/17 19:15 22:37 00:29 03:49 Temp 98.9 97.7 97.8 Pulse 81 88 72 Resp 18 19 17 B/P (MAP) 121/57 (78) 115/57 (76) 115/61 (79) Pulse Ox 97 98 97 O2 Delivery Room Air Room Air Room Air Room Air 09/30/17 09/30/17 09/30/17 09/30/17 08:00 09:00 10:54 12:00 Temp 98.8 99.5 Pulse 103 77 Resp 22 20 B/P (MAP) 128/78 (95) 137/55 (82) Pulse Ox 98 95 O2 Delivery Room Air Room Air Room Air Room Air 09/30/17 15:45 Temp 99.1 Pulse 78 Resp 18 B/P (MAP) 114/67 (83) Pulse Ox 96 O2 Delivery Room Air Capillary Refill : Less Than 3 Seconds General Appearance: WD/WN, no apparent distress Eyes: Bilateral Eye EOMI HEENT: normal ENT inspection, pale conjunctivae (R), pale conjunctivae (L) Neck: non-tender, full range of motion, supple, normal inspection Respiratory: chest non-tender, lungs clear, no respiratory distress, no accessory muscle use Cardiovascular: regular rate, rhythm, no edema, no gallop, no JVD, systolic murmur Gastrointestinal: normal bowel sounds, non tender, soft, no pulsatile mass; No guarding, No rebound Rectal: deferred Back: normal inspection, no CVA tenderness, no vertebral tenderness, muscle spasm Extremities: normal range of motion, non-tender, normal inspection, no pedal edema, no calf tenderness, slow capillary refill 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 Morris consulted -pt had outpatient transfusion last Thursday of 2 units for symptomatic anemia Qualifiers: Qualified Codes: D64.9 - Anemia, unspecified (2) Bloody stools Status: Chronic Assessment & Plan: 09/29 -approximately 6 months of bloody stools, but worse in the last several weeks (3) Lung mass Status: Acute Assessment & Plan: -left side -mass in both upper and lower lobe, suspected malignancy with lung as primary site (4) Adrenal mass Assessment & Plan: -noted on CT Scan, suspected to be metastatic in nature with lung as primary source although this has not yet been confirmed -right side (5) Metastatic disease Assessment & Plan: -previously undiagnosed, suspected lung as primary site with lesions in both upper and lower lobes of left lung and right adrenal mass (6) Leukocytosis Status: Acute Assessment & Plan: 09/29 -22.7 --> 17 -suspect noninfectious in nature Qualifiers: Qualified Codes: D72.829 - Elevated white blood cell count, unspecified (7) Tobacco abuse Status: Chronic Assessment & Plan: cessation encouraged (8) Hyponatremia Status: Resolved Assessment & Plan: 09/29 -134 --> 135 (9) Hypocalcemia Status: Acute Assessment & Plan: 09/29 -8.5 --> 7.2 (10) Hypoproteinemia Status: Acute Assessment & Plan: 09/29 -5.9 --> 4.2 -will check prealbumin (11) Hypoalbuminemia Status: Acute Assessment & Plan: 09/29 -3.4 --> 2.6 -will check prealbumin (12) Low BMI Status: Chronic Assessment & Plan: BMI 17 Clinical Quality Measures DVT/VTE Risk/Contraindication: Risk Factor Score Per Nursin RFS Level Per Nursing on Admit: 3=High Copy Copies To 1: [facility]/CARMENCITA ARREAGA DO Sep 29, 2017 10:04
[2017-09-29] MEDS ORDERED: CALCIUM CARBONATE 500 MG (TUMS) TAB.CHEW PO PRN (10:30)
[2017-09-29] MEDS ORDERED: PROPOFOL INJECTION 50 ML IV ONE (12:48)
[2017-09-29] MEDS ORDERED: MIDAZOLAM 2 MG/2 ML (VERSED) VIAL ONE (12:49)
[2017-09-29] MEDS ORDERED: LACTATED RINGERS 1,000 ML IV ONE ×2 (13:07→13:30)
--- NOTE | 2017-09-29 14:43 | Progress Note-Post Operative ---
Post-Operative Progess Note Surgeon (s)/Crown Ironer Operator (s) Surgeon NURA KENDRICK DO Crown Ironer Operator: none Pre-Operative Diagnosis GI bleed, anemia Post-Operative Diagnosis Same Colon polyps (descending and sigmoid) Int hemorrhoids poor prep Procedure & Operative Findings Date of Procedure 09/29/17 Procedure Performed/Findings Colon with snare Anesthesia Type IV sedation by TUCKPOINTER Estimated Blood Loss Estimated blood loss (mL): scant Specimens/Packing Specimens Removed Small Descending colon polyp Large Sigmoid polyp NURA KENDRICK DO Sep 29, 2017 14:43
--- NOTE | 2017-09-29 22:21 | OPERATIVE REPORT ---
DATE OF SERVICE: 09/29/2017 PREOPERATIVE DIAGNOSES: Gastrointestinal bleed, anemia. POSTOPERATIVE DIAGNOSES: 1. Gastrointestinal bleed, anemia. 2. Colon polyps, one in the descending and one in the sigmoid colon. 3. Internal hemorrhoids. 4. Poor prep. PROCEDURE: Colonoscopy with snare polypectomy. SURGEON: NURA KENDRICK DO OUTPATIENT DIETITIAN: None. ANESTHESIA: IV sedation by COUNTRY MANAGER. BLOOD LOSS: Scant. SPECIMEN: One small polyp from the descending colon and one large polyp from the sigmoid colon. FLUIDS: Per anesthesia. POSTOPERATIVE CONDITION: Stable. INDICATION FOR PROCEDURE: The patient is a 67-year-old male who had rectal bleeding for the past six months. He has had bright red blood, which then recently turned to black tarry stool, found to be anemic, needed a workup colonoscopy. FINDINGS: The patient unfortunately had a poor prep, had a lot of black liquid as well as black flecks in the colon, did see one small descending colon polyp, which was snared and then the large sigmoid polyp, which was snared, some internal hemorrhoids, but no other obvious pathology seen. PROCEDURE NOTE: After informed consent was obtained, the patient was brought to the endoscopy suite, placed in the bed in left lateral decubitus position. He was administered IV sedation by the COUNTRY MANAGER who then monitored her vitals the entire time, heart rate, blood pressure and pulse ox and the scope was then inserted. Immediately upon entry noted a lot of black liquid as well as some black flecks of material. Able to push all the way to about 150 cm, able to get all the way to cecum, took a picture of appendiceal orifice, noted the ileocecal valve, tried to get into the terminal ileum, but was unable to get into the terminal ileum, did not see any bright red blood. Started withdrawing the scope insufflating to look circumferentially phillips as well as suction out as much of the liquid and black flecks as possible flushing with saline, pulling back up the ascending colon to the hepatic flexure and then down the transverse colon, the splenic flexure and then into the descending colon. In the descending colon saw small polyp, did snare polypectomy and suctioned this up and then continued down into the sigmoid. In the sigmoid, saw a very large polyp. Did snare polypectomy, and then had to grasp this with a Whiltey Net, pulled the scope all the way out and then pushed the scope back into the spot and then slowly withdrawn down through the rest of the sigmoid colon into the rectum, retroflexed the rectal vault, saw some internal hemorrhoids. I did not see any other obvious pathology. I did not see diverticula. It was a poor prep, so could have missed something, but I do not see any obvious bleeding from the colon. This may be bleeding from upper GI, patient probably needs an EGD, unfortunately did not get permission to do this, so could not do this at the same time. The patient was recovered in the endoscopy suite. Job ID: [id number] DocumentID: [id number] Dictated Date: 09/29/2017 14:47:35 Customer Support Engineer Date: 09/29/2017 22:20:22 Dictated By: NURA KENDRICK DO
[2017-09-30] VITALS (9 sets, daily range): BP systolic 114–137; BP diastolic 55–78
[2017-09-30] MEDS: NS IV 1000 ML 1,000 ML IV SCH ×2 (00:20→08:30)
[2017-09-30 05:46] LABS: BASOPHILS # (AUTO) 0.1 10^3/uL (0.0-0.1); BASOPHILS % (AUTO) 0 % (0-10); EOSINOPHILS # (AUTO) 0.1 10^3/uL (0.0-0.3); EOSINOPHILS % (AUTO) 1 % (0-10); HEMATOCRIT 22 % (40-54); HEMOGLOBIN 7.3 G/DL (13.3-17.7); LYMPHOCYTES # (AUTO) 1.8 X 10^3 (1.0-4.0); LYMPHOCYTES % (AUTO) 11 % (12-44); MEAN CORPUSCULAR HEMOGLOBIN 31 PG (25-34); MEAN CORPUSCULAR HGB CONC 33 G/DL (32-36); MEAN CORPUSCULAR VOLUME 93 FL (80-99); MEAN PLATELET VOLUME 10.2 FL (7.4-10.4); MONOCYTES # (AUTO) 1.2 X 10^3 (0.0-1.0); MONOCYTES % (AUTO) 8 % (0-12); NEUTROPHILS % (AUTO) 81 % (42-75); PLATELET COUNT 246 10^3/uL (130-400); RED BLOOD COUNT 2.38 10^6/uL (4.35-5.85); RED CELL DISTRIBUTION WIDTH 18.3 % (10.0-14.5); WHITE BLOOD COUNT 16.1 10^3/uL (4.3-11.0)
[2017-09-30 06:46] LABS: BUN/CREATININE RATIO 34; CALCIUM 7.3 MG/DL (8.5-10.1); CARBON DIOXIDE 19 MMOL/L (21-32); CHLORIDE 109 MMOL/L (98-107); CREATININE SERUM 0.71 MG/DL (0.60-1.30); GFR ESTIMATED > 60; GLUCOSE 107 MG/DL (70-105); MAGNESIUM 1.9 MG/DL (1.8-2.4); POTASSIUM 4.3 MMOL/L (3.6-5.0); SODIUM 134 MMOL/L (135-145)
--- NOTE | 2017-09-30 09:51 | Progress Note (SOAP) ---
Subjective Subjective/Events-last exam Pt reports he "is not doing very well today'. Reports that he just generally feels bad - gets very dizzy and lightheaded when getting up to the bathroom. Discussed plan for EGD in AM per Dr. Morris, pt is hopeful this will result in a solution to his continued bleeding and symptomatic anemia. Pt reports he has a family history of cancer, his sister is currently undergoing treatment for bone cancer in . Pt reports he has been a heavy smoker for many years. Discussed that while his findings were concerning for malignancy, the diagnosis would need confirmation and further workup, which we would likely do on an outpatient basis once we could get his symptomatic anemia under control. Pt states he "isn't all that worried about it, just about fixing this bleeding issue". Reports that he has been having RUQ pain intermittently for about a month, but none currently. Review of Systems Date Seen by Provider: Sep 30, 2017 Time Seen by Provider: 14:17 General: No Chills, No Night Sweats; Fatigue HEENT: No Dysphasia Pulmonary: Dyspnea; No Cough Cardiovascular: Lt Headedness; No: Chest Pain, Edema Gastrointestinal: No: Nausea, Vomiting, Abdominal Pain Genitourinary: No Dysuria Neurological: Weakness; No: Incoordination, Change in speech, Confusion, Seizures Focused Exam Lactate Level 09/28/17 14:27: Lactic Acid Level 1.70 Objective Exam Last Set of Vital Signs Vital Signs Date Time Temp Pulse Resp B/P (MAP) Pulse Ox O2 Delivery O2 Flow Rate FiO2 09/30/17 08:00 98.8 103 22 128/78 (95) 98 Room Air 09/28/17 18:48 21 Capillary Refill : Less Than 3 Seconds I&O Intake and Output 09/30/17 00:00 Intake Total 1640 ml Balance 1640 ml Intake Oral 1190 ml IV Total 450 ml # Voids 4 # Bowel Movements 4 General: Alert, Oriented X3, Cooperative, No Acute Distress HEENT: Atraumatic, EOMI, Mucous Memb Moist/[place] Neck: Supple, No Thyromegaly Lungs: Clear to Auscultation, Normal Air Movement Heart: Regular Rate, Normal S1, Normal S2, Other (systolic murmur) Abdomen: Normal Bowel Sounds, Soft, No Tenderness Extremities: No Clubbing, No Cyanosis, No Edema, Normal Pulses Skin: No Rashes, No Significant Lesion Neuro: Normal Speech, Normal Tone, Sensation Intact, Cranial Nerves 3-12 NL Psych/Mental Status: Mental Status NL, Mood NL Results/Procedures Lab Laboratory Tests 09/29/17 14:05: Lab Scanned Report Transfusion Reaction Form 09/30/17 05:25: White Blood Count 16.1H, Red Blood Count 2.38L, Hemoglobin 7.3L, Hematocrit 22L , Mean Corpuscular Volume 93, Mean Corpuscular Hemoglobin 31, Mean Corpuscular Hemoglobin Concent 33, Red Cell Distribution Width 18.3H, Platelet Count 246, Mean Platelet Volume 10.2, Neutrophils (%) (Auto) 81H, Lymphocytes (%) (Auto) 11L, Monocytes (%) (Auto) 8, Eosinophils (%) (Auto) 1, Basophils (%) (Auto) 0, Neutrophils # (Auto) 13.0H, Lymphocytes # (Auto) 1.8, Monocytes # (Auto) 1.2H, Eosinophils # (Auto) 0.1, Basophils # (Auto) 0.1, Sodium Level 134L, Potassium Level 4.3, Chloride Level 109H, Carbon Dioxide Level 19L, Anion Gap 6, Blood Urea Nitrogen 24H, Creatinine 0.71, Estimat Glomerular Filtration Rate > 60, BUN /Creatinine Ratio 34, Glucose Level 107H, Calcium Level 7.3L, Magnesium Level 1.9 Microbiology 09/28/17 Blood Culture - Preliminary, Resulted No growth Radiology Date of Exam: 09/28/17 CT HEAD WO PROCEDURE: CT head without contrast. TECHNIQUE: Multiple contiguous axial images were obtained through the brain without the use of intravenous contrast. INDICATION: Weakness and lightheadedness Comparison: None Findings: No acute intracranial hemorrhage, mass effect or edema is seen. Bowen-white junction is preserved. Ventricles appear normal. There are a few minimal subtle areas of hypodensity in the periventricular white matter, which is nonspecific but likely related to chronic microvascular ischemic change. No acute focal lesion is suspected. The paranasal sinuses and mastoids are clear as visualized. IMPRESSION: No acute intracranial abnormalities demonstrated. Date of Exam: 09/28/17 CHEST 1 VIEW, AP/PA ONLY INDICATION: Weakness. COMPARISON: None. FINDINGS: A single frontal view of the chest was obtained. The heart size is normal. There is no central venous congestion. There is, however, some nodular prominence of the left hilum. This may be due to pulmonary artery enlargement although underlying adenopathy is not excluded. The right hilum appears unremarkable. There are findings suggestive of COPD. Additionally, there is a 2.1 cm nodule in the left midlung with possible central cavitation. This is nonspecific and could represent an area of pulmonary abscess or infectious or granulomatous process with cavitation or possibly neoplasm. A CT scan of the chest is suggested for further evaluation. IMPRESSION: There is a 2.1 cm indeterminate possible cavitary nodule in the left midlung and there is some nodular prominence of the left hilum, concerning for some underlying adenopathy or at minimum pulmonary artery enlargement. A CT scan of the chest is recommended for further evaluation. Chronic findings of COPD are also suspected. Date of Exam: 09/28/17 CT CHEST/ABDOMEN/PELVIS W PROCEDURE: CT chest, abdomen, and pelvis with contrast. TECHNIQUE: Multiple contiguous axial images were obtained through the chest, abdomen, and pelvis after the administration of intravenous contrast. INDICATION: Abdominal pain and weakness. No prior studies are available for comparison. CT chest: No axillary lymphadenopathy is identified. No mediastinal lymphadenopathy is seen. There is a mass in the left hilum measuring 2.5 cm in diameter. Right hilum is unremarkable. No pericardial or pleural fluid is detected. Severe centrilobular emphysematous changes are identified in both lungs. There is a cavitary mass in the superior segment of the left lower lobe measuring 2.2 cm in diameter. No other lung masses are seen. CT abdomen and pelvis: Right lobe of liver contains tiny low densities, too small to characterize but likely cysts. The gallbladder is unremarkable. The pancreas and spleen are unremarkable. Left adrenal gland is unremarkable. There is a mass involving the right adrenal gland measuring 7.3 x 6.2 cm. This does not appear to be fat containing. Kidneys are unremarkable. Aorta is nonaneurysmal. The small and large bowel loops are of normal caliber. No obstruction is seen. There is no ascites. The bladder is unremarkable. The prostate gland is unremarkable. IMPRESSION: 1. Cavitary mass superior segment left lower lobe. There is also left hilar mass. Features are concerning for primary lung malignancy with left hilar metastasis. In addition, there is a large mass involving the right adrenal gland, suggestive of a metastatic lesion as well. No other significant abnormality in the abdomen or pelvis is seen. Assessment/Plan Assessment/Plan (1) Profound anemia Status: Acute Assessment & Plan: 09/29 -Hgb 6.3 --> transfused 2 units --> 6.5 this AM -transfuse additional 2 units today -Dr. Morris consulted -pt had outpatient transfusion last Thursday of 2 units for symptomatic anemia 09/30 -6.3 --> 6.5 --> 7.3 -continues to be symptomatic -upper endoscopy planned for tomorrow morning Qualifiers: Qualified Codes: D64.9 - Anemia, unspecified (2) Bloody stools Status: Chronic Assessment & Plan: 09/29 -approximately 6 months of bloody stools, but worse in the last several weeks (3) Lung mass Status: Acute Assessment & Plan: -left side -mass in both upper and lower lobe, suspected malignancy with lung as primary site (4) Adrenal mass Assessment & Plan: -noted on CT Scan, suspected to be metastatic in nature with lung as primary source although this has not yet been confirmed -right side (5) Metastatic disease Assessment & Plan: -previously undiagnosed, suspected lung as primary site with lesions in both upper and lower lobes of left lung and right adrenal mass 09/30 -discussed with pt that we would likely have this continued to be evaluated on an outpatient basis once we had his acute issues under control (6) Leukocytosis Status: Acute Assessment & Plan: 09/29 -22.7 --> 17 -suspect noninfectious in nature Qualifiers: Qualified Codes: D72.829 - Elevated white blood cell count, unspecified (7) Tobacco abuse Status: Chronic Assessment & Plan: cessation encouraged (8) Hyponatremia Status: Acute Assessment & Plan: 09/29 -134 --> 135 09/30 -134 --> 135 --> 134 (9) Hypocalcemia Status: Acute Assessment & Plan: 09/29 -8.5 --> 7.2 09/30 -8.5 --> 7.2 --> 7.3 (10) Hypoproteinemia Status: Acute Assessment & Plan: 09/29 -5.9 --> 4.2 -will check prealbumin 09/30 -prealbumin pending (11) Hypoalbuminemia Status: Acute Assessment & Plan: 09/29 -3.4 --> 2.6 -will check prealbumin 09/30 -prealbumin pending (12) Low BMI Status: Chronic Assessment & Plan: BMI 17 Clinical Quality Measures DVT/VTE Risk/Contraindication: Risk Factor Score Per Nursin RFS Level Per Nursing on Admit: 3=High Copy Copies To 1: [facility]/MEEK ARREAGA DO Sep 30, 2017 09:51
--- NOTE | 2017-09-30 12:44 | Progress Note-Standard ---
Standard Progress Note Progress Notes/Assess & Plan Date Seen by Provider: Sep 30, 2017 Time Seen by Provider: 12:43 Progress/Assessment & Plan no specific symptoms. Hemoglobin 7.3. No rectal bleeding. Abdomen soft and nontender. Upper endoscopy planned for tomorrow morning. Final Diagnosis GI blood loss Focused Exam Lactate Level 09/28/17 14:27: Lactic Acid Level 1.70 ANA RIVAS MD Sep 30, 2017 12:44 pm
[2017-09-30 18:13] LABS: HEMOGLOBIN 6.7 G/DL (13.3-17.7)
[2017-10-01] VITALS: BP 100/58
[2017-10-01 04:00] VITALS: BP 118/69
[2017-10-01 05:58] LABS: BASOPHILS # (AUTO) 0.1 10^3/uL (0.0-0.1); BASOPHILS % (AUTO) 0 % (0-10); EOSINOPHILS # (AUTO) 0.1 10^3/uL (0.0-0.3); EOSINOPHILS % (AUTO) 1 % (0-10); HEMATOCRIT 22 % (40-54); HEMOGLOBIN 7.1 G/DL (13.3-17.7); LYMPHOCYTES # (AUTO) 1.6 X 10^3 (1.0-4.0); LYMPHOCYTES % (AUTO) 11 % (12-44); MEAN CORPUSCULAR HEMOGLOBIN 30 PG (25-34); MEAN CORPUSCULAR HGB CONC 32 G/DL (32-36); MEAN CORPUSCULAR VOLUME 93 FL (80-99); MEAN PLATELET VOLUME 9.6 FL (7.4-10.4); MONOCYTES # (AUTO) 1.1 X 10^3 (0.0-1.0); MONOCYTES % (AUTO) 8 % (0-12); NEUTROPHILS # (AUTO) 11.8 X 10^3 (1.8-7.8); NEUTROPHILS % (AUTO) 80 % (42-75); PLATELET COUNT 246 10^3/uL (130-400); RED BLOOD COUNT 2.36 10^6/uL (4.35-5.85); RED CELL DISTRIBUTION WIDTH 18.5 % (10.0-14.5); WHITE BLOOD COUNT 14.7 10^3/uL (4.3-11.0)
[2017-10-01 06:09] LABS: BUN/CREATININE RATIO 30; CALCIUM 7.4 MG/DL (8.5-10.1); CARBON DIOXIDE 22 MMOL/L (21-32); CHLORIDE 110 MMOL/L (98-107); CREATININE SERUM 0.67 MG/DL (0.60-1.30); GFR ESTIMATED > 60; GLUCOSE 102 MG/DL (70-105); MAGNESIUM 1.6 MG/DL (1.8-2.4); POTASSIUM 4.2 MMOL/L (3.6-5.0); SODIUM 136 MMOL/L (135-145)
[2017-10-01] MEDS: NS IV 1000 ML 1,000 ML IV SCH ×3 (07:50→23:51)
[2017-10-01 08:00] VITALS: BP 128/60
--- NOTE | 2017-10-01 09:04 | Progress Note (SOAP) ---
Subjective Subjective/Events-last exam Pt reports feeling very tired. Reports last night he started having significant abdominal pain, which was new for him. He has just returned to his room, s/p EGD per Dr. Morris. He had an actively bleeding gastric mass removed and it was sent to pathology. Sister is present at bedside. Review of Systems Date Seen by Provider: Oct 01, 2017 Time Seen by Provider: 14:05 General: No Chills; Fatigue HEENT: No Dysphasia Pulmonary: No Dyspnea Cardiovascular: No: Chest Pain, Edema Gastrointestinal: No: Nausea, Vomiting Genitourinary: No Dysuria, No Retention Musculoskeletal: No: neck pain, back pain Neurological: Weakness; No: Numbness, Incoordination, Change in speech, Confusion, Seizures Focused Exam Lactate Level 09/28/17 14:27: Lactic Acid Level 1.70 Objective Exam Last Set of Vital Signs Vital Signs Date Time Temp Pulse Resp B/P (MAP) Pulse Ox O2 Delivery O2 Flow Rate FiO2 10/01/17 08:18 Room Air 10/01/17 04:00 98.6 79 17 118/69 (85) 95 09/28/17 18:48 21 Capillary Refill : Less Than 3 Seconds I&O Intake and Output 10/01/17 00:00 Intake Total 1870 ml Balance 1870 ml Intake Oral 1870 ml # Voids 10 # Bowel Movements 2 General: Alert, Oriented X3, Cooperative, No Acute Distress HEENT: Atraumatic, EOMI, Mucous Memb Moist/[place] Neck: Supple, No Thyromegaly Lungs: Clear to Auscultation, Normal Air Movement Heart: Regular Rate, Normal S1, Normal S2 Abdomen: Normal Bowel Sounds, Soft, No Tenderness Extremities: No Clubbing, No Cyanosis, No Edema Skin: No Rashes, No Significant Lesion Neuro: Normal Speech, Normal Tone, Sensation Intact, Cranial Nerves 3-12 NL Psych/Mental Status: Mental Status NL, Mood NL Results/Procedures Lab Laboratory Tests 09/30/17 18:02: Hemoglobin 6.7*L, Hematocrit 21L 10/01/17 05:48: Hemoglobin 7.1L, Hematocrit 22L, White Blood Count 14.7H, Red Blood Count 2.36L , Mean Corpuscular Volume 93, Mean Corpuscular Hemoglobin 30, Mean Corpuscular Hemoglobin Concent 32, Red Cell Distribution Width 18.5H, Platelet Count 246, Mean Platelet Volume 9.6, Neutrophils (%) (Auto) 80H, Lymphocytes (%) (Auto) 11L , Monocytes (%) (Auto) 8, Eosinophils (%) (Auto) 1, Basophils (%) (Auto) 0, Neutrophils # (Auto) 11.8H, Lymphocytes # (Auto) 1.6, Monocytes # (Auto) 1.1H, Eosinophils # (Auto) 0.1, Basophils # (Auto) 0.1, Sodium Level 136, Potassium Level 4.2, Chloride Level 110H, Carbon Dioxide Level 22, Anion Gap 4L, Blood Urea Nitrogen 20H, Creatinine 0.67, Estimat Glomerular Filtration Rate > 60, BUN /Creatinine Ratio 30, Glucose Level 102, Calcium Level 7.4L, Magnesium Level 1.6L 10/01/17 09:04: Lab Scanned Report Transfusion Reaction Form Microbiology 09/28/17 Blood Culture - Preliminary, Resulted No growth 09/29/17 MRSA Screen - Final, Complete MRSA not isolated Radiology Date of Exam: 09/28/17 CT HEAD WO PROCEDURE: CT head without contrast. TECHNIQUE: Multiple contiguous axial images were obtained through the brain without the use of intravenous contrast. INDICATION: Weakness and lightheadedness Comparison: None Findings: No acute intracranial hemorrhage, mass effect or edema is seen. Bowen-white junction is preserved. Ventricles appear normal. There are a few minimal subtle areas of hypodensity in the periventricular white matter, which is nonspecific but likely related to chronic microvascular ischemic change. No acute focal lesion is suspected. The paranasal sinuses and mastoids are clear as visualized. IMPRESSION: No acute intracranial abnormalities demonstrated. Date of Exam: 09/28/17 CHEST 1 VIEW, AP/PA ONLY INDICATION: Weakness. COMPARISON: None. FINDINGS: A single frontal view of the chest was obtained. The heart size is normal. There is no central venous congestion. There is, however, some nodular prominence of the left hilum. This may be due to pulmonary artery enlargement although underlying adenopathy is not excluded. The right hilum appears unremarkable. There are findings suggestive of COPD. Additionally, there is a 2.1 cm nodule in the left midlung with possible central cavitation. This is nonspecific and could represent an area of pulmonary abscess or infectious or granulomatous process with cavitation or possibly neoplasm. A CT scan of the chest is suggested for further evaluation. IMPRESSION: There is a 2.1 cm indeterminate possible cavitary nodule in the left midlung and there is some nodular prominence of the left hilum, concerning for some underlying adenopathy or at minimum pulmonary artery enlargement. A CT scan of the chest is recommended for further evaluation. Chronic findings of COPD are also suspected. Date of Exam: 09/28/17 CT CHEST/ABDOMEN/PELVIS W PROCEDURE: CT chest, abdomen, and pelvis with contrast. TECHNIQUE: Multiple contiguous axial images were obtained through the chest, abdomen, and pelvis after the administration of intravenous contrast. INDICATION: Abdominal pain and weakness. No prior studies are available for comparison. CT chest: No axillary lymphadenopathy is identified. No mediastinal lymphadenopathy is seen. There is a mass in the left hilum measuring 2.5 cm in diameter. Right hilum is unremarkable. No pericardial or pleural fluid is detected. Severe centrilobular emphysematous changes are identified in both lungs. There is a cavitary mass in the superior segment of the left lower lobe measuring 2.2 cm in diameter. No other lung masses are seen. CT abdomen and pelvis: Right lobe of liver contains tiny low densities, too small to characterize but likely cysts. The gallbladder is unremarkable. The pancreas and spleen are unremarkable. Left adrenal gland is unremarkable. There is a mass involving the right adrenal gland measuring 7.3 x 6.2 cm. This does not appear to be fat containing. Kidneys are unremarkable. Aorta is nonaneurysmal. The small and large bowel loops are of normal caliber. No obstruction is seen. There is no ascites. The bladder is unremarkable. The prostate gland is unremarkable. IMPRESSION: 1. Cavitary mass superior segment left lower lobe. There is also left hilar mass. Features are concerning for primary lung malignancy with left hilar metastasis. In addition, there is a large mass involving the right adrenal gland, suggestive of a metastatic lesion as well. No other significant abnormality in the abdomen or pelvis is seen. Procedures EGD with removal of gastric mass per Dr. Morris Assessment/Plan Assessment/Plan (1) Profound anemia Status: Acute Assessment & Plan: 7 -Hgb 6.3 --> transfused 2 units --> 6.5 this AM -transfuse additional 2 units today -Dr. Morris consulted -pt had outpatient transfusion last Thursday of 2 units for symptomatic anemia 09/30 -6.3 --> 6.5 --> 7.3 -continues to be symptomatic -upper endoscopy planned for tomorrow morning 10/01 -6.3 --> 6.5 --> 7.3 --> 6.7 --> 7.1 -pt has been transfused a total of 5 units PRBC during this hospital stay -Upper Endoscopy per Dr. Morris today; actively bleeding gastric mass visualized and removed, sent to pathology -recheck Hgb in AM -spoke with henok Chan to discharge to home once stable Qualifiers: Qualified Codes: D64.9 - Anemia, unspecified (2) Bloody stools Status: Chronic Assessment & Plan: 09/29 -approximately 6 months of bloody stools, but worse in the last several weeks (3) Lung mass Status: Acute Assessment & Plan: -left side -mass in both upper and lower lobe, suspected malignancy with lung as primary site 10/01 -will contact radiology in AM and see if they are able to do a biopsy prior to discharge, otherwise will schedule for Thursday as an outpatient -have discussed with both patient and sister that we have a strong suspicion for malignancy, but that we will need to confirm this and that it will be continued on an outpatient basis and referral will be made to oncology (4) Adrenal mass Assessment & Plan: -noted on CT Scan, suspected to be metastatic in nature with lung as primary source although this has not yet been confirmed -right side (5) Metastatic disease Assessment & Plan: -previously undiagnosed, suspected lung as primary site with lesions in both upper and lower lobes of left lung and right adrenal mass 09/30 -discussed with pt that we would likely have this continued to be evaluated on an outpatient basis once we had his acute issues under control (6) Leukocytosis Status: Acute Assessment & Plan: 09/29 -22.7 --> 17 -suspect noninfectious in nature 10/01 -22.7 --> 17 --> 16.1 --> 14.7 Qualifiers: Qualified Codes: D72.829 - Elevated white blood cell count, unspecified (7) Tobacco abuse Status: Chronic Assessment & Plan: cessation encouraged (8) Hyponatremia Status: Resolved Assessment & Plan: 09/29 -134 --> 135 09/30 -134 --> 135 --> 134 10/01 -134 --> 135 --> 134 --> 136 (9) Hypocalcemia Status: Acute Assessment & Plan: 7/3 -8.5 --> 7.2 7/4 -8.5 --> 7.2 --> 7.3 7/5 -8.5 --> 7.2 --> 7.3 --> 7.4 (10) Hypoproteinemia Status: Acute Assessment & Plan: 09/29 -5.9 --> 4.2 -will check prealbumin / -prealbumin pending 10/01 -prealbumin 15.6 (11) Hypoalbuminemia Status: Acute Assessment & Plan: 09/29 -3.4 --> 2.6 -will check prealbumin / -prealbumin pending (12) Low BMI Status: Chronic Assessment & Plan: BMI 17 (13) Low serum prealbumin Assessment & Plan: 10/01 -15.6 Clinical Quality Measures DVT/VTE Risk/Contraindication: Risk Factor Score Per Nursin RFS Level Per Nursing on Admit: 3=High Copy Copies To 1: [facility]/MEEK ARREAGA DO Oct 01, 2017 09:04
[2017-10-01] MEDS: MAGNESIUM 1 GM/100 ML IVPB 100 ML IV SCH ×2 (10:51→12:05)
--- NOTE | 2017-10-01 11:13 | Progress Note ---
Subjective Time Seen by Provider: 10:57 Subjective/Events-last exam Pt seen and examined, denies any abdominal pain. Pt states he hasn't had a BM since Thursday. He still has very low energy. Denies nausea or vomiting Review of Systems General: No Chills, No Night Sweats; Fatigue Pulmonary: No Dyspnea, No Cough Cardiovascular: No: Chest Pain, Palpitations Gastrointestinal: Melena; No: Nausea, Vomiting, Abdominal Pain Focused Exam Lactate Level 09/28/17 14:27: Lactic Acid Level 1.70 Objective Exam Vital Signs Date Time Temp Pulse Resp B/P (MAP) Pulse Ox O2 Delivery O2 Flow Rate FiO2 10/01/17 09:31 97 Room Air 10/01/17 09:30 80 97 21 10/01/17 08:18 Room Air 10/01/17 08:00 97.5 81 18 128/60 (82) 95 Room Air 10/01/17 04:00 98.6 79 17 118/69 (85) 95 Room Air 10/01/17 00:00 98.2 79 16 100/58 (72) 95 Room Air 09/30/17 21:00 98.9 86 18 120/60 100 Room Air 09/30/17 20:01 99 Room Air 09/30/17 19:06 98.7 74 16 120/56 100 Room Air 09/30/17 19:00 98.7 81 20 118/58 (78) 98 Room Air 09/30/17 18:51 99.8 79 20 118/58 99 Room Air 09/30/17 15:45 99.1 78 18 114/67 (83) 96 Room Air 09/30/17 12:00 99.5 77 20 137/55 (82) 95 Room Air I & O 10/01/17 07:00 Intake Total 1470 ml Output Total 900 ml Balance 570 ml Capillary Refill : Less Than 3 Seconds General Appearance: No Apparent Distress, WD/WN HEENT: PERRL/EOMI, Pharynx Normal Neck: Non Tender, Supple Respiratory: Lungs Clear, Normal Breath Sounds Cardiovascular: No Murmur, Tachycardia Gastrointestinal: normal bowel sounds, non tender, soft, no pulsatile mass; No guarding, No rebound Extremity: Normal Range of Motion, Non Tender Neurologic/Psychiatric: Alert, Oriented x3 Skin: Normal Color, Warm/Dry Results Lab Laboratory Tests 09/30/17 18:02: Hemoglobin 6.7*L, Hematocrit 21L 10/01/17 05:48: Hemoglobin 7.1L, Hematocrit 22L, White Blood Count 14.7H, Red Blood Count 2.36L , Mean Corpuscular Volume 93, Mean Corpuscular Hemoglobin 30, Mean Corpuscular Hemoglobin Concent 32, Red Cell Distribution Width 18.5H, Platelet Count 246, Mean Platelet Volume 9.6, Neutrophils (%) (Auto) 80H, Lymphocytes (%) (Auto) 11L , Monocytes (%) (Auto) 8, Eosinophils (%) (Auto) 1, Basophils (%) (Auto) 0, Neutrophils # (Auto) 11.8H, Lymphocytes # (Auto) 1.6, Monocytes # (Auto) 1.1H, Eosinophils # (Auto) 0.1, Basophils # (Auto) 0.1, Sodium Level 136, Potassium Level 4.2, Chloride Level 110H, Carbon Dioxide Level 22, Anion Gap 4L, Blood Urea Nitrogen 20H, Creatinine 0.67, Estimat Glomerular Filtration Rate > 60, BUN /Creatinine Ratio 30, Glucose Level 102, Calcium Level 7.4L, Magnesium Level 1.6L 10/01/17 09:04: Lab Scanned Report Transfusion Reaction Form Microbiology 09/28/17 Blood Culture - Preliminary, Resulted No growth 09/29/17 MRSA Screen - Final, Complete MRSA not isolated Assessment/Plan Assessment/Plan Assessment/Plan 1. GI Bleed 2. Anemia secondary to #1 3. Lung mass x 2, suspected Lung CA 3. Adrenal mass - right Plan for EGD today; colonoscopy only showed 2 polyps no source of bleeding. Pt has been transfused and Hg has stayed at 7 since last transfusion. Discussed risks and complications not limited to pain, bleeding, infection and possible esophageal perforation. All questions answered to his satisfaction. [facility]. Clinical Quality Measures DVT/VTE Risk/Contraindication: Risk Factor Score Per Nursin RFS Level Per Nursing on Admit: 3=High NURA KENDRICK DO Oct 01, 2017 11:13
[2017-10-01 11:53] VITALS: BP 116/56
[2017-10-01] MEDS ORDERED: proPOfol 200 MG/20 ML (DIPRIVAN) VIAL IV ONE ×2 (12:19→12:39)
[2017-10-01] MEDS ORDERED: MIDAZOLAM 2 MG/2 ML (VERSED) VIAL ONE (12:19)
[2017-10-01] MEDS ORDERED: NS IV 500 ML 500 ML ONE (12:20)
[2017-10-01] MEDS ORDERED: NS IV 500 ML 500 ML IV ONE (13:15)
[2017-10-01] MEDS ORDERED: HURRICAINE EXT TUBE (BENZOCAINE) XX ONE (13:15)
[2017-10-01] MEDS ORDERED: HURRICAINE EXT TUBE (BENZOCAINE) ONE (13:52)
--- NOTE | 2017-10-01 14:01 | Anesthesia-General Post-Op ---
MAC Patient Condition Mental Status/LOC: Same as Preop Cardiovascular: Satisfactory Nausea/Vomiting: Absent Respiratory: Satisfactory Pain: Controlled Complications: Absent Post Op Complications Complications None Follow Up Care/Instructions Patient Instructions None needed. Anesthesiology Discharge Order Discharge Order Patient is doing well, no complaints, stable vital signs, no apparent adverse anesthesia problems. No complications reported per nursing. TERE DRUMMOND CRNA Oct 01, 2017 14:01
--- NOTE | 2017-10-01 15:04 | Progress Note-Post Operative ---
Post-Operative Progess Note Surgeon (s)/Dietist (s) Surgeon NURA KENDRICK DO Dietist: none Pre-Operative Diagnosis GI bleed, anemia Post-Operative Diagnosis Bleeding Gastric Mass; cardia of stomach Procedure & Operative Findings Date of Procedure 10/01/17 Procedure Performed/Findings EGD with Endoscopic submucosal rescection of Cardia Mass EGD with injection of dye to tattoo area Anesthesia Type IV sedation by OPERATIONAL TEST MECHANIC Estimated Blood Loss Estimated blood loss (mL): scant Specimens/Packing Specimens Removed Gastric mass NURA KENDRICK DO Oct 01, 2017 15:03
[2017-10-01 15:35] VITALS: BP 111/58
[2017-10-01] MEDS: RT-ALBUTEROL/IPRATROPIUM 3 ML (DUONEB) VIAL INH SCH (19:05)
[2017-10-01 19:45] VITALS: BP 114/68
--- NOTE | 2017-10-01 22:34 | OPERATIVE REPORT ---
DATE OF SERVICE: PREOPERATIVE DIAGNOSES: Gastrointestinal bleed, anemia. POSTOPERATIVE DIAGNOSES: Gastrointestinal bleed, anemia, bleeding gastric mass of the cardia of the stomach. PROCEDURE: 1. EGD with endoscopic submucosal resection of cardia mass. 2. EGD with injection of dye to tattoo the area. SURGEON: Harrison Morris DO. DESILVERIZER: None. ANESTHESIA: IV sedation by the CONTRACT DESIGN AGENT. BLOOD LOSS: Scant. FLUIDS: Per anesthesia. POSTOPERATIVE CONDITION: Stable. SPECIMEN: Gastric mass. INDICATION FOR PROCEDURE: The patient is a 67-year-old male who has a GI bleed and anemia and needs a workup colonoscopy just showed a large polyp. FINDINGS: The patient had a bleeding gastric mass within the cardia of the stomach, could see it actively bleeding, able to remove this and was sent to pathology. PROCEDURE NOTE: After informed consent was obtained, the patient was brought to the endoscopy suite and placed in the left lateral decubitus position. He was administered IV sedation by the CONTRACT DESIGN AGENT who then monitored his vitals the entire time, heart rate, blood pressure and pulse ox and the scope was inserted down the mouth into the esophagus and into the stomach. Once in the stomach, there was a large amount of black melanotic fluid, able to start suction this out and find the pylorus, pushed into the pylorus, passed the pylorus into the duodenum, and in the first and second portion of duodenum, there was no bleeding, no ulcers. Pictures were taken. Pulled back and then retroflexed to look at the cardia of the stomach, and in the cardia of the stomach, I saw a bleeding gastric mass. Able to flush the fluid out and suction to try and get this out and then down the endoscope, passed a snare, able to get the snare deep around the bleeding mass and then come through this slowly thereby going through the mucosa and the submucosa to get a deep margin on this mass, removed this and then able to place a Whitley Net, grasped the mass with Whitley Net and then pulled the scope all the way out, passed the specimen off the table, sent to pathology, placed EGD scope back into the abdomen and then injected dye in 3 positions around this area. Good injection of dye in three areas around site of mass and then made sure that we got all the fluid out of the cardia to make sure we did not see any other thing, any other masses in the stomach and there was no bleeding. At the end of this case, I had removed this mass en block at this point, then pulled this suction out the air in the stomach, pulled the scope into the esophagus, took two pictures of the esophagus and then removed the scope. The patient tolerated the procedure. He was recovered in endoscopy and then sent back to his room. Job ID: [id number] DocumentID: [id number] Dictated Date: 10/01/2017 15:29:11 [employer]able [employer] Manager Date: 10/01/2017 22:33:55 Dictated By: DO MEETA VALLADARES
[2017-10-02] VITALS (12 sets, daily range): BP systolic 110–132; BP diastolic 53–71
[2017-10-02 06:10] LABS: BASOPHILS # (AUTO) 0.1 10^3/uL (0.0-0.1); BASOPHILS % (AUTO) 0 % (0-10); EOSINOPHILS # (AUTO) 0.1 10^3/uL (0.0-0.3); EOSINOPHILS % (AUTO) 0 % (0-10); LYMPHOCYTES # (AUTO) 1.5 X 10^3 (1.0-4.0); LYMPHOCYTES % (AUTO) 10 % (12-44); MEAN CORPUSCULAR HEMOGLOBIN 30 PG (25-34); MEAN CORPUSCULAR HGB CONC 32 G/DL (32-36); MEAN CORPUSCULAR VOLUME 95 FL (80-99); MEAN PLATELET VOLUME 10.4 FL (7.4-10.4); MONOCYTES % (AUTO) 7 % (0-12); NEUTROPHILS # (AUTO) 12.5 X 10^3 (1.8-7.8); NEUTROPHILS % (AUTO) 83 % (42-75); PLATELET COUNT 291 10^3/uL (130-400); RED BLOOD COUNT 2.15 10^6/uL (4.35-5.85); RED CELL DISTRIBUTION WIDTH 18.9 % (10.0-14.5); WHITE BLOOD COUNT 15.1 10^3/uL (4.3-11.0)
[2017-10-02 06:17] LABS: HEMATOCRIT 20 % (40-54); HEMOGLOBIN 6.5 G/DL (13.3-17.7)
[2017-10-02 06:28] LABS: BUN/CREATININE RATIO 19; CALCIUM 7.6 MG/DL (8.5-10.1); CARBON DIOXIDE 22 MMOL/L (21-32); CHLORIDE 108 MMOL/L (98-107); GFR ESTIMATED > 60; GLUCOSE 100 MG/DL (70-105); MAGNESIUM 1.8 MG/DL (1.8-2.4); POTASSIUM 4.3 MMOL/L (3.6-5.0); SODIUM 134 MMOL/L (135-145)
--- NOTE | 2017-10-02 07:58 | Progress Note (SOAP) ---
Subjective Subjective/Events-last exam Patient is feeling well this afternoon. His hemoglobin had dropped to 6.5 this morning, and he was given 2 units PRBC that are finishing infusion at the time of exam. Pt reports that he is not having any pain. He is eating well. He reports he was surprised to learn he only weighed 118 lbs on admission, he thought he was about 140 lbs. He reports that he does get dizzy and lightheaded if he gets up too fast, but that if he gets up slowly, he feels pretty good. He reports that he is looking forward to going home tomorrow. Okay with patient to update his sister Nava, who requested to be updated daily with patient status. Her phone number is [phone]. Pt states he would like to follow up with Dr. Caballero at the clinic after discharge, and he lives close to the clinic, so he can walk if he has to. Will arrange transportation for pt for his follow up appointment. Review of Systems Date Seen by Provider: Oct 02, 2017 Time Seen by Provider: 14:05 General: No Chills, No Night Sweats HEENT: No Visual Changes, No Dysphasia Pulmonary: No Dyspnea, No Cough Cardiovascular: No: Chest Pain, Palpitations, Edema Gastrointestinal: Melena; No: Nausea, Vomiting, Abdominal Pain Genitourinary: No Dysuria, No Hematuria Musculoskeletal: No: neck pain, back pain Neurological: No: Numbness, Incoordination, Change in speech, Confusion, Seizures Objective Exam Last Set of Vital Signs Vital Signs Date Time Temp Pulse Resp B/P (MAP) Pulse Ox O2 Delivery O2 Flow Rate FiO2 10/02/17 04:00 97.8 76 16 113/68 (83) 94 Room Air 10/01/17 09:30 21 Capillary Refill : Less Than 3 Seconds I&O Intake and Output 10/02/17 00:00 Intake Total 2560 ml Output Total 1400 ml Balance 1160 ml Intake Oral 360 ml IV Total 2200 ml Output Urine Total 1400 ml # Voids 2 # Bowel Movements 1 General: Alert, Oriented X3, Cooperative, No Acute Distress HEENT: Atraumatic, EOMI, Mucous Memb Moist/Rodman Neck: Supple, No Thyromegaly Lungs: Clear to Auscultation, Normal Air Movement Heart: Regular Rate, Normal S1, Normal S2 Abdomen: Normal Bowel Sounds, Soft, No Tenderness Extremities: No Clubbing, No Cyanosis, No Edema, Normal Pulses, No Tenderness/ Swelling Skin: No Rashes, No Significant Lesion Neuro: Normal Speech, Normal Tone, Sensation Intact, Cranial Nerves 3-12 NL Psych/Mental Status: Mental Status NL, Mood NL Results/Procedures Lab Laboratory Tests 10/01/17 09:04: Lab Scanned Report Transfusion Reaction Form 10/02/17 05:22: White Blood Count 15.1H, Red Blood Count 2.15L, Hemoglobin 6.5*L, Hematocrit 20* L, Mean Corpuscular Volume 95, Mean Corpuscular Hemoglobin 30, Mean Corpuscular Hemoglobin Concent 32, Red Cell Distribution Width 18.9H, Platelet Count 291, Mean Platelet Volume 10.4, Neutrophils (%) (Auto) 83H, Lymphocytes (%) (Auto) 10L, Monocytes (%) (Auto) 7, Eosinophils (%) (Auto) 0, Basophils (%) (Auto) 0, Neutrophils # (Auto) 12.5H, Lymphocytes # (Auto) 1.5, Monocytes # (Auto) 1.0, Eosinophils # (Auto) 0.1, Basophils # (Auto) 0.1, Sodium Level 134L, Potassium Level 4.3, Chloride Level 108H, Carbon Dioxide Level 22, Anion Gap 4L, Blood Urea Nitrogen 13, Creatinine 0.70, Estimat Glomerular Filtration Rate > 60, BUN/ Creatinine Ratio 19, Glucose Level 100, Calcium Level 7.6L, Magnesium Level 1.8 Microbiology 09/28/17 Blood Culture - Preliminary, Resulted No growth 09/29/17 MRSA Screen - Final, Complete MRSA not isolated Radiology Date of Exam: 09/28/17 CT HEAD WO PROCEDURE: CT head without contrast. TECHNIQUE: Multiple contiguous axial images were obtained through the brain without the use of intravenous contrast. INDICATION: Weakness and lightheadedness Comparison: None Findings: No acute intracranial hemorrhage, mass effect or edema is seen. Bowen-white junction is preserved. Ventricles appear normal. There are a few minimal subtle areas of hypodensity in the periventricular white matter, which is nonspecific but likely related to chronic microvascular ischemic change. No acute focal lesion is suspected. The paranasal sinuses and mastoids are clear as visualized. IMPRESSION: No acute intracranial abnormalities demonstrated. Date of Exam: 09/28/17 CHEST 1 VIEW, AP/PA ONLY INDICATION: Weakness. COMPARISON: None. FINDINGS: A single frontal view of the chest was obtained. The heart size is normal. There is no central venous congestion. There is, however, some nodular prominence of the left hilum. This may be due to pulmonary artery enlargement although underlying adenopathy is not excluded. The right hilum appears unremarkable. There are findings suggestive of COPD. Additionally, there is a 2.1 cm nodule in the left midlung with possible central cavitation. This is nonspecific and could represent an area of pulmonary abscess or infectious or granulomatous process with cavitation or possibly neoplasm. A CT scan of the chest is suggested for further evaluation. IMPRESSION: There is a 2.1 cm indeterminate possible cavitary nodule in the left midlung and there is some nodular prominence of the left hilum, concerning for some underlying adenopathy or at minimum pulmonary artery enlargement. A CT scan of the chest is recommended for further evaluation. Chronic findings of COPD are also suspected. Date of Exam: 09/28/17 CT CHEST/ABDOMEN/PELVIS W PROCEDURE: CT chest, abdomen, and pelvis with contrast. TECHNIQUE: Multiple contiguous axial images were obtained through the chest, abdomen, and pelvis after the administration of intravenous contrast. INDICATION: Abdominal pain and weakness. No prior studies are available for comparison. CT chest: No axillary lymphadenopathy is identified. No mediastinal lymphadenopathy is seen. There is a mass in the left hilum measuring 2.5 cm in diameter. Right hilum is unremarkable. No pericardial or pleural fluid is detected. Severe centrilobular emphysematous changes are identified in both lungs. There is a cavitary mass in the superior segment of the left lower lobe measuring 2.2 cm in diameter. No other lung masses are seen. CT abdomen and pelvis: Right lobe of liver contains tiny low densities, too small to characterize but likely cysts. The gallbladder is unremarkable. The pancreas and spleen are unremarkable. Left adrenal gland is unremarkable. There is a mass involving the right adrenal gland measuring 7.3 x 6.2 cm. This does not appear to be fat containing. Kidneys are unremarkable. Aorta is nonaneurysmal. The small and large bowel loops are of normal caliber. No obstruction is seen. There is no ascites. The bladder is unremarkable. The prostate gland is unremarkable. IMPRESSION: 1. Cavitary mass superior segment left lower lobe. There is also left hilar mass. Features are concerning for primary lung malignancy with left hilar metastasis. In addition, there is a large mass involving the right adrenal gland, suggestive of a metastatic lesion as well. No other significant abnormality in the abdomen or pelvis is seen. Assessment/Plan Assessment/Plan (1) Profound anemia Status: Acute Assessment & Plan: 09/29 -Hgb 6.3 --> transfused 2 units --> 6.5 this AM -transfuse additional 2 units today -Dr. Morris consulted -pt had outpatient transfusion last Thursday of 2 units for symptomatic anemia 09/30 -6.3 --> 6.5 --> 7.3 -continues to be symptomatic -upper endoscopy planned for tomorrow morning 10/01 -6.3 --> 6.5 --> 7.3 --> 6.7 --> 7.1 -pt has been transfused a total of 5 units PRBC during this hospital stay -Upper Endoscopy per Dr. Morris today; actively bleeding gastric mass visualized and removed, sent to pathology -recheck Hgb in AM -spoke with henok Chan to discharge to home once stable 10/02 -6.3 --> 6.5 --> 7.3 --> 6.7 --> 7.1 --> 6.5 -transfuse 2 units today -including today's transfusion, pt has received total of 7 units during this hospitalization -now that actively bleeding gastric mass has been removed by Dr. Morris, expect that pt's Hgb will stabilize and he should be ready for discharge tomorrow Qualifiers: Qualified Codes: D64.9 - Anemia, unspecified (2) Bloody stools Status: Chronic Assessment & Plan: 09/29 -approximately 6 months of bloody stools, but worse in the last several weeks 10/02 -continues to have tarry stools, but active bleeding in stomach has been stopped as of yesterday by Dr. Morris and it has been discussed with pt that these should resolve over the next week or so (3) Lung mass Status: Acute Assessment & Plan: -left side -mass in both upper and lower lobe, suspected malignancy with lung as primary site 10/01 -will contact radiology in AM and see if they are able to do a biopsy prior to discharge, otherwise will schedule for Thursday as an outpatient -have discussed with both patient and sister that we have a strong suspicion for malignancy, but that we will need to confirm this and that it will be continued on an outpatient basis and referral will be made to oncology 10/02 -pt scheduled for left lung CT guided biopsy on 10/08 -outpatient ordered completed and signed with results to be sent to Dr. Caballero -pad extraction tender here to discuss pre-op instructions, etc with patient today (4) Adrenal mass Assessment & Plan: -noted on CT Scan, suspected to be metastatic in nature with lung as primary source although this has not yet been confirmed -right side (5) Metastatic disease Assessment & Plan: -previously undiagnosed, suspected lung as primary site with lesions in both upper and lower lobes of left lung and right adrenal mass 09/30 -discussed with pt that we would likely have this continued to be evaluated on an outpatient basis once we had his acute issues under control 10/02 -left lung CT guided biopsy scheduled for 10/08 -left lung mass x2 -right adrenal mass -gastric mass removed by Dr. Morris 10/01, pathology pending -colon polyps removed by Dr. Morris 09/29 pathology report stated descending colon polyp tubular adenoma, sigmoid colon polyp sessile serrated polyp with low grade dysplasia, no high grade glandular dysplasia or invasive malignancy identified (6) Gastric mass Status: Resolved Assessment & Plan: Gastric mass removed 10/[address] Morris and sent to pathology (7) Colon polyps Status: Resolved Assessment & Plan: -colon polyps removed by Dr. Morris 09/29 pathology report stated descending colon polyp tubular adenoma, sigmoid colon polyp sessile serrated polyp with low grade dysplasia, no high grade glandular dysplasia or invasive malignancy identified Qualifiers: Qualified Codes: K63.5 - Polyp of colon (8) Leukocytosis Status: Acute Qualifiers: Qualified Codes: D72.829 - Elevated white blood cell count, unspecified (9) Tobacco abuse Status: Chronic Assessment & Plan: cessation encouraged (10) Hyponatremia Status: Acute Assessment & Plan: 09/29 -134 --> 135 09/30 -134 --> 135 --> 134 10/01 -134 --> 135 --> 134 --> 136 10/02 -134 --> 135 --> 134 --> 136 --> 134 (11) Hypocalcemia Status: Acute Assessment & Plan: 09/29 -8.5 --> 7.2 7/4 -8.5 --> 7.2 --> 7.3 7/5 -8.5 --> 7.2 --> 7.3 --> 7.4 7/6 -8.5 --> 7.2 --> 7.3 --> 7.4 --> 7.6 (12) Hypoproteinemia Status: Acute Assessment & Plan: 09/29 -5.9 --> 4.2 -will check prealbumin / -prealbumin pending 10/01 -prealbumin 15.6 7/6 -high protein diet (13) Hypoalbuminemia Status: Acute Assessment & Plan: 09/29 -3.4 --> 2.6 -will check prealbumin 09/30 -prealbumin pending 10/02 -prealbumin 15.6 -high protein diet (14) Low BMI Status: Chronic Assessment & Plan: BMI 17 (15) Low serum prealbumin Assessment & Plan: / -15.6 Clinical Quality Measures DVT/VTE Risk/Contraindication: Risk Factor Score Per Nursin RFS Level Per Nursing on Admit: 3=High Copy Copies To 1: MURRAY CBAALLERO MD, MARGARET E DO Oct 02, 2017 07:58
[2017-10-02] MEDS: RT-ALBUTEROL/IPRATROPIUM 3 ML (DUONEB) VIAL INH SCH ×2 (08:38→18:15)
--- NOTE | 2017-10-02 10:54 | Progress Note ---
Subjective Time Seen by Provider: 10:41 Subjective/Events-last exam Pt seen and examined, states he still has black BM's. Denies abdominal pain, but does have some back pain which he thinks is his kidney. Still feels a little weak, denies SOB. Review of Systems General: No Chills, No Night Sweats; Fatigue Pulmonary: No Dyspnea, No Cough Cardiovascular: No: Chest Pain, Palpitations Gastrointestinal: No: Nausea, Vomiting Objective Exam Vital Signs Date Time Temp Pulse Resp B/P (MAP) Pulse Ox O2 Delivery O2 Flow Rate FiO2 10/02/17 08:43 98.3 86 16 120/53 100 Room Air 10/02/17 08:38 95 Room Air 10/02/17 08:24 98.3 89 18 112/64 96 Room Air 10/02/17 08:03 98.3 89 18 112/64 (80) 96 Room Air 10/02/17 04:00 97.8 76 16 113/68 (83) 94 Room Air 10/02/17 00:00 98.2 86 16 110/58 (75) 96 Room Air 10/01/17 19:45 99.9 94 16 114/68 (83) 96 Room Air 10/01/17 19:06 93 Room Air 10/01/17 15:35 98.0 76 18 111/58 (75) 98 Room Air 10/01/17 11:53 96.8 71 20 116/56 (76) 97 Room Air I & O 10/02/17 07:00 Intake Total 2760 ml Output Total 1000 ml Balance 1760 ml Capillary Refill : Less Than 3 Seconds General Appearance: No Apparent Distress, WD/WN HEENT: PERRL/EOMI, Pharynx Normal Neck: Non Tender, Supple Respiratory: Lungs Clear, Normal Breath Sounds Cardiovascular: No Murmur, Tachycardia Gastrointestinal: normal bowel sounds, non tender, soft, no pulsatile mass; No guarding, No rebound Extremity: Normal Range of Motion, Non Tender Neurologic/Psychiatric: Alert, Oriented x3 Skin: Normal Color, Warm/Dry Results Lab Laboratory Tests 10/02/17 05:22: White Blood Count 15.1H, Red Blood Count 2.15L, Hemoglobin 6.5*L, Hematocrit 20* L, Mean Corpuscular Volume 95, Mean Corpuscular Hemoglobin 30, Mean Corpuscular Hemoglobin Concent 32, Red Cell Distribution Width 18.9H, Platelet Count 291, Mean Platelet Volume 10.4, Neutrophils (%) (Auto) 83H, Lymphocytes (%) (Auto) 10L, Monocytes (%) (Auto) 7, Eosinophils (%) (Auto) 0, Basophils (%) (Auto) 0, Neutrophils # (Auto) 12.5H, Lymphocytes # (Auto) 1.5, Monocytes # (Auto) 1.0, Eosinophils # (Auto) 0.1, Basophils # (Auto) 0.1, Sodium Level 134L, Potassium Level 4.3, Chloride Level 108H, Carbon Dioxide Level 22, Anion Gap 4L, Blood Urea Nitrogen 13, Creatinine 0.70, Estimat Glomerular Filtration Rate > 60, BUN/ Creatinine Ratio 19, Glucose Level 100, Calcium Level 7.6L, Magnesium Level 1.8 Microbiology 09/28/17 Blood Culture - Preliminary, Resulted No growth 09/29/17 MRSA Screen - Final, Complete MRSA not isolated Assessment/Plan Assessment/Plan Assessment/Plan 1. GI Bleed - due to Gastric Mass 2. Anemia secondary to #1 3. Lung mass x 2, suspected Lung CA 3. Adrenal mass - right S/P removal of bleeding gastric mass. Pt Hg dropped again and he is getting 2 more units of blood. I told pt he would continue to have black BM's for a while; there was a lot of black fluid in stomach during EGD and we saw active bleeding. There should be no more bleeding now; mass was completely removed. Restarted regular diet, pt told to ambulate with assist for just in case he gets dizzy. Encouraged PO and IS use. He should be ok to go home tomorrow. Clinical Quality Measures DVT/VTE Risk/Contraindication: Risk Factor Score Per Nursin RFS Level Per Nursing on Admit: 3=High NURA KENDRICK DO Oct 02, 2017 10:53
[2017-10-02] MEDS ORDERED: ACETAMINOPHEN 325 MG TABLET PO PRN (11:30)
[2017-10-03 04:42] LABS: BASOPHILS # (AUTO) 0.1 10^3/uL (0.0-0.1); BASOPHILS % (AUTO) 0 % (0-10); EOSINOPHILS # (AUTO) 0.1 10^3/uL (0.0-0.3); EOSINOPHILS % (AUTO) 1 % (0-10); HEMATOCRIT 28 % (40-54); HEMOGLOBIN 9.3 G/DL (13.3-17.7); LYMPHOCYTES # (AUTO) 1.5 X 10^3 (1.0-4.0); LYMPHOCYTES % (AUTO) 10 % (12-44); MEAN CORPUSCULAR HEMOGLOBIN 29 PG (25-34); MEAN CORPUSCULAR HGB CONC 33 G/DL (32-36); MEAN CORPUSCULAR VOLUME 88 FL (80-99); MEAN PLATELET VOLUME 10.3 FL (7.4-10.4); MONOCYTES # (AUTO) 1.3 X 10^3 (0.0-1.0); MONOCYTES % (AUTO) 9 % (0-12); NEUTROPHILS # (AUTO) 11.4 X 10^3 (1.8-7.8); NEUTROPHILS % (AUTO) 80 % (42-75); PLATELET COUNT 281 10^3/uL (130-400); RED BLOOD COUNT 3.18 10^6/uL (4.35-5.85); RED CELL DISTRIBUTION WIDTH 19.5 % (10.0-14.5); WHITE BLOOD COUNT 14.3 10^3/uL (4.3-11.0)
[2017-10-03 05:03] LABS: BUN/CREATININE RATIO 18; CALCIUM 8.1 MG/DL (8.5-10.1); CARBON DIOXIDE 21 MMOL/L (21-32); CHLORIDE 107 MMOL/L (98-107); CREATININE SERUM 0.71 MG/DL (0.60-1.30); GFR ESTIMATED > 60; GLUCOSE 94 MG/DL (70-105); MAGNESIUM 2.1 MG/DL (1.8-2.4); POTASSIUM 4.2 MMOL/L (3.6-5.0); SODIUM 134 MMOL/L (135-145)
[2017-10-03 07:52] VITALS: BP 143/62
[2017-10-03] MEDS: RT-ALBUTEROL/IPRATROPIUM 3 ML (DUONEB) VIAL INH SCH (07:53)
[2017-10-03] MEDS ORDERED: OMEP40CA36 PO (11:15)
--- NOTE | 2017-10-03 11:16 | Discharge Instructions ---
Discharge [facility] Discharge Medications New, Converted or Re-Newed RX: Other (over the counter) New Medications: Omeprazole (Omeprazole) 40 Mg Capsule.dr 40 MG PO DAILY, #30 CAP 0 Refills Continued Medications: Calcium Carbonate (Tums) 200 Mg Tab.chew 400 MG PO Q4H PRN for HEARTBURN, TAB Discontinued Medications: Ibuprofen (Advil) 200 Mg Tablet 200 MG PO Q4H PRN for PAIN-MILD, TAB Patient Instructions Goal/Follow Up Appt: Follow-up with Dr. Escobar as scheduled Activity & Diet Discharge Diet: No Restrictions SANDRO GRAY DO Oct 03, 2017 11:16
--- NOTE | 2017-10-03 11:18 | Progress Note ---
Subjective Time Seen by Provider: 10:56 Subjective/Events-last exam Pt seen and examined, walking the halls "ready to go". He states he is feeling much better, no pain. Still a tiny bit weak and "occasionally see fuzzies". Tolerating diet, still some melenotic stools. Review of Systems General: No Chills, No Night Sweats; Fatigue Pulmonary: No Dyspnea, No Cough Cardiovascular: No: Chest Pain, Palpitations Gastrointestinal: No: Nausea, Vomiting, Abdominal Pain Objective Exam Vital Signs Date Time Temp Pulse Resp B/P (MAP) Pulse Ox O2 Delivery O2 Flow Rate FiO2 10/03/17 07:53 93 Room Air 10/03/17 07:52 97.3 68 20 143/62 (89) 96 Room Air 10/02/17 23:27 98.5 67 18 126/71 (89) 98 Room Air 10/02/17 21:00 Room Air 10/02/17 18:26 98 Room Air 10/02/17 16:30 99.6 74 18 122/71 (88) 98 Room Air 10/02/17 14:41 98.8 69 16 132/61 97 Room Air 10/02/17 12:53 98.4 95 16 131/61 (84) 97 Room Air 10/02/17 12:45 98.8 89 18 126/58 97 Room Air 10/02/17 12:27 98.4 95 16 131/61 97 Room Air I & O 10/03/17 07:00 Intake Total 2200 ml Output Total 1375 ml Balance 825 ml Capillary Refill : Less Than 3 Seconds General Appearance: No Apparent Distress, WD/WN HEENT: PERRL/EOMI, Pharynx Normal Neck: Non Tender, Supple Respiratory: Lungs Clear, Normal Breath Sounds Cardiovascular: No Murmur, Tachycardia Gastrointestinal: normal bowel sounds, non tender, soft, no pulsatile mass; No guarding, No rebound Extremity: Normal Range of Motion, Non Tender Neurologic/Psychiatric: Alert, Oriented x3 Skin: Normal Color, Warm/Dry Results Lab Laboratory Tests 10/02/17 12:34: Lab Scanned Report Transfusion Reaction Form 10/03/17 03:55: White Blood Count 14.3H, Red Blood Count 3.18L, Hemoglobin 9.3#L, Hematocrit 28L , Mean Corpuscular Volume 88, Mean Corpuscular Hemoglobin 29, Mean Corpuscular Hemoglobin Concent 33, Red Cell Distribution Width 19.5H, Platelet Count 281, Mean Platelet Volume 10.3, Neutrophils (%) (Auto) 80H, Lymphocytes (%) (Auto) 10L, Monocytes (%) (Auto) 9, Eosinophils (%) (Auto) 1, Basophils (%) (Auto) 0, Neutrophils # (Auto) 11.4H, Lymphocytes # (Auto) 1.5, Monocytes # (Auto) 1.3H, Eosinophils # (Auto) 0.1, Basophils # (Auto) 0.1, Sodium Level 134L, Potassium Level 4.2, Chloride Level 107, Carbon Dioxide Level 21, Anion Gap 6, Blood Urea Nitrogen 13, Creatinine 0.71, Estimat Glomerular Filtration Rate > 60, BUN/ Creatinine Ratio 18, Glucose Level 94, Calcium Level 8.1L, Magnesium Level 2.1 Microbiology 09/28/17 Blood Culture - Preliminary, Resulted No growth 09/29/17 MRSA Screen - Final, Complete MRSA not isolated Assessment/Plan Assessment/Plan Assessment/Plan 1. GI Bleed - due to Gastric Mass 2. Anemia secondary to #1 3. Lung mass x 2, suspected Lung CA 3. Adrenal mass - right S/P removal of bleeding gastric mass. Pt will be sent home today; I reminded pt he would continue to have black BM's for a while; there was a lot of black fluid in stomach during EGD and we saw active bleeding. Continue regular diet, ambulate, encouraged PO and IS use. He should take over the counter Protonix or Pecid. Follow up with me next week. He had no questions. Clinical Quality Measures DVT/VTE Risk/Contraindication: Risk Factor Score Per Nursin RFS Level Per Nursing on Admit: 3=High NURA KENDRICK DO Oct 03, 2017 11:18
--- NOTE | 2017-10-03 11:21 | Discharge Summary ---
Diagnosis/Chief Complaint Date of Admission Sep 28, 2017 at 15:29 Date of Discharge October 03, 2017 Admission Diagnosis Admission Diagnosis Anemia Metastatic Disease Adrenal Mass GI Bleed Tobacco Abuse THC Abuse Discharge Diagnosis (1) Profound anemia Status: Acute Assessment & Plan: 09/29 -Hgb 6.3 --> transfused 2 units --> 6.5 this AM -transfuse additional 2 units today -Dr. Kendrick consulted -pt had outpatient transfusion last Thursday of 2 units for symptomatic anemia 09/30 -6.3 --> 6.5 --> 7.3 -continues to be symptomatic -upper endoscopy planned for tomorrow morning 10/01 -6.3 --> 6.5 --> 7.3 --> 6.7 --> 7.1 -pt has been transfused a total of 5 units PRBC during this hospital stay -Upper Endoscopy per Dr. Kendrick today; actively bleeding gastric mass visualized and removed, sent to pathology -recheck Hgb in AM -spoke with Dr. Kendrick, okay to discharge to home once stable 10/02 -6.3 --> 6.5 --> 7.3 --> 6.7 --> 7.1 --> 6.5 -transfuse 2 units today -including today's transfusion, pt has received total of 7 units during this hospitalization -now that actively bleeding gastric mass has been removed by Dr. Kendrick, expect that pt's Hgb will stabilize and he should be ready for discharge tomorrow 10/03 - PPI added at discharge Qualifiers: Qualified Codes: D64.9 - Anemia, unspecified (2) Bloody stools Status: Chronic Assessment & Plan: 09/29 -approximately 6 months of bloody stools, but worse in the last several weeks 10/02 -continues to have tarry stools, but active bleeding in stomach has been stopped as of yesterday by Dr. Kendrick and it has been discussed with pt that these should resolve over the next week or so (3) Lung mass Status: Acute Assessment & Plan: -left side -mass in both upper and lower lobe, suspected malignancy with lung as primary site 10/01 -will contact radiology in AM and see if they are able to do a biopsy prior to discharge, otherwise will schedule for Thursday as an outpatient -have discussed with both patient and sister that we have a strong suspicion for malignancy, but that we will need to confirm this and that it will be continued on an outpatient basis and referral will be made to oncology 10/02 -pt scheduled for left lung CT guided biopsy on 10/08 -outpatient ordered completed and signed with results to be sent to Dr. Caballero -check grader here to discuss pre-op instructions, etc with patient today (4) Adrenal mass Assessment & Plan: -noted on CT Scan, suspected to be metastatic in nature with lung as primary source although this has not yet been confirmed -right side (5) Metastatic disease Assessment & Plan: -previously undiagnosed, suspected lung as primary site with lesions in both upper and lower lobes of left lung and right adrenal mass 09/30 -discussed with pt that we would likely have this continued to be evaluated on an outpatient basis once we had his acute issues under control 10/02 -left lung CT guided biopsy scheduled for 10/08 -left lung mass x2 -right adrenal mass -gastric mass removed by Dr. Kendrick 10/01, pathology pending -colon polyps removed by Dr. Kendrick 09/29 pathology report stated descending colon polyp tubular adenoma, sigmoid colon polyp sessile serrated polyp with low grade dysplasia, no high grade glandular dysplasia or invasive malignancy identified (6) Gastric mass Status: Resolved Assessment & Plan: Gastric mass removed 10/[address] Kendrick and sent to pathology (7) Colon polyps Status: Resolved Assessment & Plan: -colon polyps removed by Dr. Kendrick 09/29 pathology report stated descending colon polyp tubular adenoma, sigmoid colon polyp sessile serrated polyp with low grade dysplasia, no high grade glandular dysplasia or invasive malignancy identified Qualifiers: Qualified Codes: K63.5 - Polyp of colon (8) Leukocytosis Status: Acute Qualifiers: Qualified Codes: D72.829 - Elevated white blood cell count, unspecified (9) Tobacco abuse Status: Chronic Assessment & Plan: cessation encouraged (10) Hyponatremia Status: Acute Assessment & Plan: 09/29 -134 --> 135 09/30 -134 --> 135 --> 134 10/01 -134 --> 135 --> 134 --> 136 10/02 -134 --> 135 --> 134 --> 136 --> 134 (11) Hypocalcemia Status: Acute Assessment & Plan: 09/29 -8.5 --> 7.2 7/4 -8.5 --> 7.2 --> 7.3 7/5 -8.5 --> 7.2 --> 7.3 --> 7.4 7/6 -8.5 --> 7.2 --> 7.3 --> 7.4 --> 7.6 (12) Hypoproteinemia Status: Acute Assessment & Plan: 09/29 -5.9 --> 4.2 -will check prealbumin 09/30 -prealbumin pending 10/01 -prealbumin 15.6 10/02 -high protein diet (13) Hypoalbuminemia Status: Acute Assessment & Plan: 09/29 -3.4 --> 2.6 -will check prealbumin 09/30 -prealbumin pending 10/02 -prealbumin 15.6 -high protein diet (14) Low BMI Status: Chronic Assessment & Plan: BMI 17 (15) Low serum prealbumin Assessment & Plan: 10/01 -15.6 10/03/17 - DC to home Chief Complaint/HPI Chief Complaint/HPI Pt seen at [facility] clinic on 09/25 with report of passing out while fishing because he "got overheated". His Hgb in the office on 09/25 was 7.3, he was also noted to have hemoccult positive stools. He was apparently transfused two units PRBC last Thursday due to his symptomatic anemia. He has continued to have weakness, dizziness, and blood in his stool, as well as shortness of breath. When he had another fall, he presented to the ED yesterday and was found to have a hemoglobin of 6.3. He was also noted to have a lung mass with suspected metastatic disease to both other areas of lung and his adrenal gland. General surgery was consulted secondary to his report of bloody stools and the patient was admitted for transfusion of PRBC and stabilization. Pt was originally scheduled to see Dr. Kendrick in his office this week regarding blood in his stools, which has been present for ~6 months. Discharge Summary-Simple/Stand Consultations General Surgery - Dr. Kendrick Discharge Physical Examination Allergies: Coded Allergies: codeine (Verified Allergy, Unknown, 09/28/17) Vitals & I&Os Vital Sign - Last 12Hours Date Time Temp Pulse Resp B/P (MAP) Pulse Ox O2 Delivery O2 Flow Rate FiO2 10/03/17 07:53 93 Room Air 10/03/17 07:52 97.3 68 20 143/62 (89) 10/01/17 09:30 21 Intake and Output 10/03/17 00:00 Intake Total 2050 ml Output Total 1375 ml Balance 675 ml General Appearance: Alert, Oriented X3, Cooperative Psych/Mental Status: Mental Status NL, Mood NL Hospital Course See final discharge diagnosis. Radiology Reviewed Date of Exam: 09/28/17 CT HEAD WO PROCEDURE: CT head without contrast. TECHNIQUE: Multiple contiguous axial images were obtained through the brain without the use of intravenous contrast. INDICATION: Weakness and lightheadedness Comparison: None Findings: No acute intracranial hemorrhage, mass effect or edema is seen. Bowen-white junction is preserved. Ventricles appear normal. There are a few minimal subtle areas of hypodensity in the periventricular white matter, which is nonspecific but likely related to chronic microvascular ischemic change. No acute focal lesion is suspected. The paranasal sinuses and mastoids are clear as visualized. IMPRESSION: No acute intracranial abnormalities demonstrated. Date of Exam: 09/28/17 CHEST 1 VIEW, AP/PA ONLY INDICATION: Weakness. COMPARISON: None. FINDINGS: A single frontal view of the chest was obtained. The heart size is normal. There is no central venous congestion. There is, however, some nodular prominence of the left hilum. This may be due to pulmonary artery enlargement although underlying adenopathy is not excluded. The right hilum appears unremarkable. There are findings suggestive of COPD. Additionally, there is a 2.1 cm nodule in the left midlung with possible central cavitation. This is nonspecific and could represent an area of pulmonary abscess or infectious or granulomatous process with cavitation or possibly neoplasm. A CT scan of the chest is suggested for further evaluation. IMPRESSION: There is a 2.1 cm indeterminate possible cavitary nodule in the left midlung and there is some nodular prominence of the left hilum, concerning for some underlying adenopathy or at minimum pulmonary artery enlargement. A CT scan of the chest is recommended for further evaluation. Chronic findings of COPD are also suspected. Date of Exam: 09/28/17 CT CHEST/ABDOMEN/PELVIS W PROCEDURE: CT chest, abdomen, and pelvis with contrast. TECHNIQUE: Multiple contiguous axial images were obtained through the chest, abdomen, and pelvis after the administration of intravenous contrast. INDICATION: Abdominal pain and weakness. No prior studies are available for comparison. CT chest: No axillary lymphadenopathy is identified. No mediastinal lymphadenopathy is seen. There is a mass in the left hilum measuring 2.5 cm in diameter. Right hilum is unremarkable. No pericardial or pleural fluid is detected. Severe centrilobular emphysematous changes are identified in both lungs. There is a cavitary mass in the superior segment of the left lower lobe measuring 2.2 cm in diameter. No other lung masses are seen. CT abdomen and pelvis: Right lobe of liver contains tiny low densities, too small to characterize but likely cysts. The gallbladder is unremarkable. The pancreas and spleen are unremarkable. Left adrenal gland is unremarkable. There is a mass involving the right adrenal gland measuring 7.3 x 6.2 cm. This does not appear to be fat containing. Kidneys are unremarkable. Aorta is nonaneurysmal. The small and large bowel loops are of normal caliber. No obstruction is seen. There is no ascites. The bladder is unremarkable. The prostate gland is unremarkable. IMPRESSION: 1. Cavitary mass superior segment left lower lobe. There is also left hilar mass. Features are concerning for primary lung malignancy with left hilar metastasis. In addition, there is a large mass involving the right adrenal gland, suggestive of a metastatic lesion as well. No other significant abnormality in the abdomen or pelvis is seen. Discharge Instructions to patient/family Please see electronic discharge instructions given to patient. Discharge Medications Reviewed and agree with Discharge Medication list on patient's Discharge Instruction sheet Clinical Quality Measures DVT/VTE Risk/Contraindication: Risk Factor Score Per Nursin RFS Level Per Nursing on Admit: 3=High Copy Copies To 1: MURRAY CABALLERO MD Copies To 2: NURA KENDRICK LINDA K DO Oct 03, 2017 11:21
== END 2017-10-03 11:30 | disposition home or self-care (01) | DRG 375 ==
LOC: EDUNIT# 11:09 → ER 11:11 → 4TH 15:29
PROVIDERS: ADMIT Family Medicine; ATTEND Family Medicine
PROC: 0DBM8ZZ Excision of Descending Colon, Via Natural or Artificial Opening Endoscopic (ICD-10-PCS; 2017-09-29)
PROC: 0DB68ZZ Excision of Stomach, Via Natural or Artificial Opening Endoscopic (ICD-10-PCS; principal; 2017-10-01 12:18)
DX: C16.0 Malignant neoplasm of cardia (principal); K92.2 Gastrointestinal hemorrhage, unspecified; C34.92 Malignant neoplasm of unspecified part of left bronchus or lung; C78.02 Secondary malignant neoplasm of left lung; C79.71 Secondary malignant neoplasm of right adrenal gland; E87.1 Hypo-osmolality and hyponatremia; D50.0 Iron deficiency anemia secondary to blood loss (chronic); D12.4 Benign neoplasm of descending colon; D12.5 Benign neoplasm of sigmoid colon; E83.51 Hypocalcemia; E77.8 Other disorders of glycoprotein metabolism; E88.09 Other disorders of plasma-protein metabolism, not elsewhere classified; K64.8 Other hemorrhoids; F17.210 Nicotine dependence, cigarettes, uncomplicated; F12.90 Cannabis use, unspecified, uncomplicated; Z80.1 Family history of malignant neoplasm of trachea, bronchus and lung; Z80.42 Family history of malignant neoplasm of prostate; Z80.8 Family history of malignant neoplasm of other organs or systems
CPT/HCPCS: 36415; 36430; 70450; 71045; 71260; 74177; 80048; 80053; 81000; 83605; 83735; 84134; 84484; 85007; 85014; 85018; 85025; 85027; 85610; 85730; 86850; 86900; 86901; 86920; 87040; 87081; 88305; 93005; 93041; 94640; 94664; 94760; 96360

== ENCOUNTER 2017-10-08 06:40 | Outpatient (CLI) | payer OTHER ==
[2017-10-08] VITALS (14 sets, daily range): BP systolic 129–142; BP diastolic 53–82
[~2017-10-08] VITALS: Ht 175.3 cm; Wt 53.5 kg
[~2017-10-08 06:40] MED LIST: CALC500T7 PO; IBUP-30 PO; OMEP40CA36 PO
[2017-10-08 07:45] LABS: BASOPHILS # (AUTO) 0.1 10^3/uL (0.0-0.1); BASOPHILS % (AUTO) 1 % (0-10); EOSINOPHILS # (AUTO) 0.2 10^3/uL (0.0-0.3); EOSINOPHILS % (AUTO) 1 % (0-10); HEMATOCRIT 33 % (40-54); HEMOGLOBIN 10.7 G/DL (13.3-17.7); LYMPHOCYTES # (AUTO) 1.4 X 10^3 (1.0-4.0); LYMPHOCYTES % (AUTO) 12 % (12-44); MEAN CORPUSCULAR HEMOGLOBIN 29 PG (25-34); MEAN CORPUSCULAR HGB CONC 32 G/DL (32-36); MEAN CORPUSCULAR VOLUME 90 FL (80-99); MEAN PLATELET VOLUME 9.5 FL (7.4-10.4); MONOCYTES % (AUTO) 8 % (0-12); NEUTROPHILS # (AUTO) 9.3 X 10^3 (1.8-7.8); NEUTROPHILS % (AUTO) 78 % (42-75); PLATELET COUNT 545 10^3/uL (130-400); RED BLOOD COUNT 3.71 10^6/uL (4.35-5.85); RED CELL DISTRIBUTION WIDTH 15.8 % (10.0-14.5); WHITE BLOOD COUNT 11.9 10^3/uL (4.3-11.0)
[2017-10-08] MEDS ORDERED: fentaNYL INJECTION 100 MCG/2 ML AMP IVP PRN (07:45)
[2017-10-08] MEDS ORDERED: LIDOCAINE 1% INJ 20 ML 20 ML VIAL INJ ONE (07:45)
[2017-10-08] MEDS ORDERED: MIDAZOLAM 2 MG/2 ML (VERSED) VIAL IVP PRN (07:45)
[2017-10-08] MEDS ORDERED: NS IV 1000 ML 0 ML ONE (07:47)
[2017-10-08 08:18] LABS: SMEAR SCAN COMMENT YES
[2017-10-08] MEDS ORDERED: ACETAMINOPHEN 500 MG TAB (TYLENOL) PO ONE (10:00)
[2017-10-08] MEDS ORDERED: HYDROcodone/APAP 5 MG/325 MG (LORTAB) TAB PO PRN (10:00)
--- NOTE | 2017-10-08 10:27 | Pre-Procedure Progress Note ---
Pre-Procedure Progress Note H&P Reviewed The H&P was reviewed, patient examined and no changes noted. Date H&P Reviewed: Oct 08, 2017 Time H&P Reviewed: 08:00 Pre-Procedure Diagnosis: Left lung mass PEARL SHAVER MD Oct 08, 2017 10:27
--- NOTE | 2017-10-08 13:59 | Diagnostic Imaging Report ---
INDICATION: Left lung mass, post biopsy. TIME OF EXAM: 11:20 AM Correlation is made with prior chest from 09/28/2017. FINDINGS: No pneumothorax is identified status post lung biopsy. Mass in the left lung is again noted. There is some surrounding airspace infiltrate noted consistent with some minimal parenchymal hemorrhage. There is some mild bibasilar atelectasis noted. IMPRESSION: No evidence of pneumothorax, status post left lung biopsy. Dictated by: Dictated on workstation # [id number]
--- NOTE | 2017-10-08 15:18 | Diagnostic Imaging Report ---
INDICATION: Left lung mass. Patient presents for CT-guided biopsy. FINDINGS: After informed written consent was obtained from the patient, patient was brought to the CT suite, placed on the table in the [id number] decubitus position. Axial imaging was performed to evaluate appropriate entry site. Skin of the left posterior thorax was then prepped and draped in the usual sterile fashion. A small amount of 1% lidocaine was utilized for local anesthesia. A 20-gauge coaxial Temno needle was advanced, placed with its tip along the margin of the cavitary mass in the left lower lobe. Approximately, three core biopsies were obtained. The needle was then repositioned to a different location along the margin of the mass and three additional core biopsies were obtained. A blood patch was injected during needle removal. Followup imaging demonstrates a tiny pneumothorax. No other complicating feature is seen. Patient tolerated the procedure well. IMPRESSION: CT-guided core biopsy of the cavitary mass in the left lower lobe, as described. Pathology results are currently pending. Dictated by: Dictated on workstation # [id number]
== END 2017-10-08 14:10 | disposition home or self-care (01) ==
LOC: SDC 06:40
PROVIDERS: ATTEND Family Medicine
DX: C34.32 Malignant neoplasm of lower lobe, left bronchus or lung (principal); R63.4 Abnormal weight loss; Z72.0 Tobacco use
CPT/HCPCS: 36415; 71045; 77012; 85025; 85610; 85730

== ENCOUNTER 2017-12-09 13:28 | Outpatient (RCR) | payer MEDICARE, MEDICAID ==
[2017-12-09 15:11] LABS: BASOPHILS # (AUTO) 0.1 10^3/uL (0.0-0.1); BASOPHILS % (AUTO) 1 % (0-10); EOSINOPHILS % (AUTO) 0 % (0-10); HEMATOCRIT 38 % (40-54); HEMOGLOBIN 12.5 G/DL (13.3-17.7); LYMPHOCYTES # (AUTO) 1.5 X 10^3 (1.0-4.0); LYMPHOCYTES % (AUTO) 11 % (12-44); MEAN CORPUSCULAR HEMOGLOBIN 25 PG (25-34); MEAN CORPUSCULAR HGB CONC 33 G/DL (32-36); MEAN CORPUSCULAR VOLUME 76 FL (80-99); MEAN PLATELET VOLUME 9.4 FL (7.4-10.4); MONOCYTES # (AUTO) 1.1 X 10^3 (0.0-1.0); MONOCYTES % (AUTO) 8 % (0-12); NEUTROPHILS # (AUTO) 10.5 X 10^3 (1.8-7.8); NEUTROPHILS % (AUTO) 80 % (42-75); PLATELET COUNT 457 10^3/uL (130-400); RED BLOOD COUNT 5.06 10^6/uL (4.35-5.85); RED CELL DISTRIBUTION WIDTH 16.3 % (10.0-14.5); WHITE BLOOD COUNT 13.2 10^3/uL (4.3-11.0)
[2017-12-09 15:34] LABS: ALANINE AMINOTRANSFERASE 15 U/L (0-55); ALBUMIN 3.9 GM/DL (3.2-4.5); ALKALINE PHOSPHATASE 80 U/L (40-136); BILIRUBIN,TOTAL 0.6 MG/DL (0.1-1.0); BUN/CREATININE RATIO 14; CALCIUM 9.7 MG/DL (8.5-10.1); CARBON DIOXIDE 23 MMOL/L (21-32); CHLORIDE 98 MMOL/L (98-107); CREATININE SERUM 0.91 MG/DL (0.60-1.30); GFR ESTIMATED > 60; GLUCOSE 82 MG/DL (70-105); POTASSIUM 4.4 MMOL/L (3.6-5.0); SODIUM 133 MMOL/L (135-145); TOTAL PROTEIN 8.1 GM/DL (6.4-8.2)
[2017-12-10] MEDS ORDERED: OXYC1TAB87 PO (15:53)
[2017-12-18] MEDS ORDERED: ONDA4TAB8 SL (04:35)
[2017-12-18] MEDS ORDERED: OXC10TCR PO (04:35)
[2017-12-18] MEDS ORDERED: OXYC-471 PO (04:35)
[2017-12-18] MEDS ORDERED: POLY119P5 PO (04:37)
== END 2017-12-27 | disposition home or self-care (01) ==
LOC: ONC 13:28
PROVIDERS: ATTEND Internal Medicine Hematology & Oncology
DX: C34.92 Malignant neoplasm of unspecified part of left bronchus or lung (principal); C16.9 Malignant neoplasm of stomach, unspecified; F17.210 Nicotine dependence, cigarettes, uncomplicated; E27.9 Disorder of adrenal gland, unspecified; Z80.8 Family history of malignant neoplasm of other organs or systems
CPT/HCPCS: 36415; 80053; 82105; 82378; 82728; 83540; 84702; 85025; 99214

== ENCOUNTER 2017-12-10 12:16 | Emergency (ER) | payer MEDICAID, MEDICARE ==
[~2017-12-10] VITALS: Ht 175.3 cm; Wt 56.7 kg
[2017-12-10 13:37] LABS: BILIRUBIN,URINE NEGATIVE (NEGATIVE); CLARITY,URINE SLIGHTLY CLOUDY; COLOR,URINE YELLOW; GLUCOSE, URINE (UA) NEGATIVE (NEGATIVE); KETONES,URINE NEGATIVE (NEGATIVE); LEUKOCYTE ESTERASE ,URINE NEGATIVE (NEGATIVE); NITRITE,URINE NEGATIVE (NEGATIVE); PH,URINE 7 (5-9); PROTEIN,URINE 3+ (NEGATIVE); UROBILINOGEN,URINE NORMAL (NORMAL)
[2017-12-10 13:47] LABS: AMORPHOUS SEDIMENT,UR LARGE AMOR URATES /LPF; BACTERIA,URINE NEGATIVE /HPF
[2017-12-10 13:56] LABS: BASOPHILS % (AUTO) 0 % (0-10); EOSINOPHILS % (AUTO) 0 % (0-10); HEMATOCRIT 37 % (40-54); HEMOGLOBIN 11.8 G/DL (13.3-17.7); LYMPHOCYTES % (AUTO) 8 % (12-44); MEAN CORPUSCULAR HEMOGLOBIN 24 PG (25-34); MEAN CORPUSCULAR HGB CONC 32 G/DL (32-36); MEAN CORPUSCULAR VOLUME 76 FL (80-99); MEAN PLATELET VOLUME 9.8 FL (7.4-10.4); MONOCYTES # (AUTO) 1.2 X 10^3 (0.0-1.0); MONOCYTES % (AUTO) 10 % (0-12); NEUTROPHILS # (AUTO) 9.7 X 10^3 (1.8-7.8); NEUTROPHILS % (AUTO) 82 % (42-75); PLATELET COUNT 486 10^3/uL (130-400); RED BLOOD COUNT 4.86 10^6/uL (4.35-5.85); RED CELL DISTRIBUTION WIDTH 16.3 % (10.0-14.5); WHITE BLOOD COUNT 11.9 10^3/uL (4.3-11.0)
[2017-12-10 14:06] LABS: ALANINE AMINOTRANSFERASE 15 U/L (0-55); ALKALINE PHOSPHATASE 80 U/L (40-136); BILIRUBIN,TOTAL 0.5 MG/DL (0.1-1.0); BUN/CREATININE RATIO 17; CALCIUM 9.6 MG/DL (8.5-10.1); CARBON DIOXIDE 24 MMOL/L (21-32); CHLORIDE 99 MMOL/L (98-107); GFR ESTIMATED > 60; GLUCOSE 129 MG/DL (70-105); POTASSIUM 4.1 MMOL/L (3.6-5.0); SODIUM 135 MMOL/L (135-145)
--- NOTE | 2017-12-10 15:05 | Diagnostic Imaging Report ---
INDICATION: Right-sided abdominal pain radiating to the back. TIME OF EXAM: 3:00 p.m. COMPARISON: Correlation is made with prior chest radiograph from 10/08/2017. FINDINGS: There is an enlarging mass identified in the left chest, which appears to be in the superior segment of the left lower lobe. This measures 8.2 cm cephalocaudal compared with 4 cm on prior. Right lung is clear. No effusion is seen. There is no pneumothorax. IMPRESSION: Enlarging left lower lobe mass when compared with examination from two months earlier. Dictated by: Dictated on workstation # [id number]
--- NOTE | 2017-12-10 15:10 | Diagnostic Imaging Report ---
INDICATION: Abdominal pain. TIME OF EXAM: 3:02 p.m. No free air is seen. Bowel gas pattern is nonobstructed. No pathologic calcifications are seen. Large mass in the left lower lung is again noted. IMPRESSION: No acute feature in the abdomen is identified. Dictated by: Dictated on workstation # [id number]
[2017-12-10] MEDS ORDERED: fentaNYL INJECTION 100 MCG/2 ML AMP IM ONE (15:15)
[2017-12-10] MEDS ORDERED: KETOROLAC 30 MG/ML VIAL IM ONE (15:15)
[2017-12-10] MEDS ORDERED: KETOROLAC 30 MG/ML VIAL IVP ONE (15:15)
--- NOTE | 2017-12-10 15:46 | ED Abdominal Pain ---
General Chief Complaint: Abdominal/GI Problems Stated Complaint: ABD PAIN Nursing Triage Note: Pt c/o R sided abd pain radiating to back. Pt reports pain started on Thursday (12/07) and he was seen in ER at [facility]. Pt reports pain was relieved after being seen there and pt was given Rx for oxycodone. Pt states pain returned yesterday, unrelieved by oxycodone. Pt reports little appetite for past 4 days. Sepsis Screen: No Definite Risk Source of Information: Patient, Other (outside records) Exam Limitations: No Limitations History of Present Illness Date Seen by Provider: Dec 10, 2017 Time Seen by Provider: 12:50 Initial Comments This 67-year-old gentleman with a "stomach cancer" presents to the emergency room with complaints of pain in the right flank and right upper quadrant that has been waxing and waning but became very intense today. He was recently seen in the emergency room at [facility] where a CT was performed. Dr. Gaitan is his oncologist and Dr. Kendrick is his general surgeon. He denies any vomiting, diarrhea, or significant constipation. He had been constipated previously but treated this with qqyn-hoy-mhqvkqd milk of magnesia. He has not had a good bowel movement in several days but states he is also had poor appetite and has not eaten much in several days. He denies any urinary changes. Allergies and Home Medications Allergies Coded Allergies: codeine (Verified Allergy, Unknown, 09/28/17) Home Medications Calcium Carbonate 200 Mg Tab.chew, 400 MG PO Q4H PRN for HEARTBURN, (Reported) Omeprazole 40 Mg Capsule.dr, 40 MG PO DAILY Prescribed by: SANDRO GRAY on 10/03/17 1115 Oxycodone HCl/Acetaminophen 1 Each Tablet, 1 EACH PO Q4H PRN for PAIN-MODERATE Prescribed by: BERNIE SALAS on 12/10/17 1553 Patient Home Medication List Home Medication List Reviewed: Yes Review of Systems Review of Systems Constitutional: no symptoms reported EENTM: No Symptoms Reported Respiratory: No Symptoms Reported Cardiovascular: No Symptoms Reported Gastrointestinal: See HPI Genitourinary: No Symptoms Reported Musculoskeletal: no symptoms reported Skin: no symptoms reported Psychiatric/Neurological: No Symptoms Reported Endocrine: No Symptoms Reported Hematologic/Lymphatic: See HPI Past Fhhipmj-Bqlilp-Namrev Hx Past Med/Social Hx: Reviewed and Corrections made Patient Social History Alcohol Use: Denies Use Number of Drinks Today: AA Alcohol Beverage of Choice: Beer Recreational Drug Use: Yes Drug of Choice: marijuana Smoking Status: Current Someday Smoker Type Used: Cigarettes Recent Foreign Travel: No Contact w/Someone Who Travel: No Recent Infectious Disease Expo: No Recent Hopitalizations: No Immunizations Up To Date Tetanus Booster (TDap): Unknown Seasonal Allergies Seasonal Allergies: No Past Medical History Surgeries: Yes (stomach ulcer repair) Respiratory: No Cardiac: No Neurological: No Genitourinary: No Gastrointestinal: Yes Gastrointestinal Bleed, Ulcer Musculoskeletal: No Endocrine: No HEENT: No Cancer: No Lung, Stomach Did You Recieve Any Treatments: Yes What Type of Treatment Did You: Chemotherapy patient is due to start chemotherapy treatments Psychosocial: No Integumentary: No Blood Disorders: Yes Adverse Reaction/Blood Tranf: No Family Medical History Reviewed Nursing Family Hx Cancer 19 MOTHER G8 SISTER (bone cancer) FH: cancer Cancer Physical Exam Vital Signs Vital Signs - First Documented 12/10/17 12:50 Temp 98.4 Pulse 86 Resp 18 B/P (MAP) 117/69 (85) Pulse Ox 95 O2 Delivery Room Air Capillary Refill : Less Than 3 Seconds Height/Weight/BMI Height: 5'9.00" Weight: 125lbs. 0.0oz. 56.447530lw; 17.4 BMI Method:Stated General Appearance: WD/WN, no apparent distress, thin HEENT: PERRL/EOMI, normal ENT inspection Neck: normal inspection Respiratory: lungs clear, normal breath sounds, no respiratory distress, no accessory muscle use Cardiovascular: regular rate, rhythm, no edema, no murmur Gastrointestinal: normal bowel sounds, soft, tenderness (right flank just beneath the costal margin and to a lesser extent the right upper quadrant.), other (soft lump over the right costal margin suggestive of lipoma, stated as chronic and unchanged) Extremities: normal inspection, no pedal edema Back: normal inspection Neurologic/Psychiatric: systems mechanic II-XII nml as tested, no motor/sensory deficits, alert, normal mood/affect, oriented x 3 Skin: normal color, warm/dry Progress/Results/Core Measures Results/Orders Lab Results Laboratory Tests Test 12/10/17 13:19 12/10/17 13:35 Range/Units Urine Color YELLOW Urine Clarity SLIGHTLY CLOUDY Urine pH 7 5-9 Urine Specific [place] 1.010 L 1.016-1.022 Urine Protein 3+ H NEGATIVE Urine Glucose (UA) NEGATIVE NEGATIVE Urine Ketones NEGATIVE NEGATIVE Urine Nitrite NEGATIVE NEGATIVE Urine Bilirubin NEGATIVE NEGATIVE Urine Urobilinogen NORMAL NORMAL MG/DL Urine Leukocyte Esterase NEGATIVE NEGATIVE Urine RBC (Auto) 1+ H NEGATIVE Urine RBC NONE /HPF Urine WBC NONE /HPF Urine Squamous Epithelial Cells NONE /HPF Urine Crystals NONE /LPF Urine Amorphous Sediment LARGE SHANITA URATES H /LPF Urine Bacteria NEGATIVE /HPF Urine Casts NONE /LPF Urine Mucus NEGATIVE /LPF Urine Culture Indicated NO White Blood Count 11.9 H 4.3-11.0 10^3/uL Red Blood Count 4.86 4.35-5.85 10^6/uL Hemoglobin 11.8 L 13.3-17.7 G/DL Hematocrit 37 L 40-54 % Mean Corpuscular Volume 76 L 80-99 FL Mean Corpuscular Hemoglobin 24 L 25-34 PG Mean Corpuscular Hemoglobin Concent 32 32-36 G/DL Red Cell Distribution Width 16.3 H 10.0-14.5 % Platelet Count 486 H 130-400 10^3/uL Mean Platelet Volume 9.8 7.4-10.4 FL Neutrophils (%) (Auto) 82 H 42-75 % Lymphocytes (%) (Auto) 8 L 12-44 % Monocytes (%) (Auto) 10 0-12 % Eosinophils (%) (Auto) 0 0-10 % Basophils (%) (Auto) 0 0-10 % Neutrophils # (Auto) 9.7 H 1.8-7.8 X 10^3 Lymphocytes # (Auto) 1.0 1.0-4.0 X 10^3 Monocytes # (Auto) 1.2 H 0.0-1.0 X 10^3 Eosinophils # (Auto) 0.0 0.0-0.3 10^3/uL Basophils # (Auto) 0.0 0.0-0.1 10^3/uL Sodium Level 135 135-145 MMOL/L Potassium Level 4.1 3.6-5.0 MMOL/L Chloride Level 99 98-107 MMOL/L Carbon Dioxide Level 24 21-32 MMOL/L Anion Gap 12 5-14 MMOL/L Blood Urea Nitrogen 15 7-18 MG/DL Creatinine 0.90 0.60-1.30 MG/DL Estimat Glomerular Filtration Rate > 60 BUN/Creatinine Ratio 17 Glucose Level 129 H 70-105 MG/DL Calcium Level 9.6 8.5-10.1 MG/DL Corrected Calcium 9.6 8.5-10.1 MG/DL Total Bilirubin 0.5 0.1-1.0 MG/DL Aspartate Amino Transf (AST/SGOT) 14 5-34 U/L Alanine Aminotransferase (ALT/SGPT) 15 0-55 U/L Alkaline Phosphatase 80 40-136 U/L Total Protein 8.0 6.4-8.2 GM/DL Albumin 4.0 3.2-4.5 GM/DL Lipase 13 8-78 U/L My Orders Orders - BERNIE RIVERA MD Ua Culture If Indicated (12/10/17 12:50) Cbc With Automated Diff (12/10/17 13:49) Lipase (12/10/17 13:49) Abdomen, Flat & Upright/Decub (12/10/17 14:14) Chest Pa/Lat (2 View) (12/10/17 14:24) Ketorolac Injection (Toradol Injection) (12/10/17 15:15) Ketorolac Injection (Toradol Injection) (12/10/17 15:15) Fentanyl Injection (Sublimaze Injection (12/10/17 15:15) Im/Sub-Q Injection Non-Ab Ed (12/10/17 ) Medications Given in ED Vital Signs/I&O 12/10/17 12/10/17 12:50 15:51 Temp 98.4 98.4 Pulse 86 86 Resp 18 18 B/P (MAP) 117/69 (85) 117/69 (85) Pulse Ox 95 95 O2 Delivery Room Air Room Air Blood Pressure Mean: 85 Progress Progress Note : Progress Note Labs were evaluated. Pain was treated with fentanyl and Toradol. After review of CT imaging that patient provided on disc, patient's location of pain seems to correlate very well with a large abdominal mass between the stomach and liver. Case was discussed with Dr. Kendrick. Patient was dismissed with additional pain medication and instructions to follow-up as an outpatient. Diagnostic Imaging Diagonstic Imaging: Xray Plain Films/CT/US/NM/MRI: abdomen, pelvis Comments Abdominal x-ray viewed by me and report reviewed. See report below: NAME: DAVID [facility]LOR [facility] REC#: [id number] PT STATUS: REG ER : 1950 PHYSICIAN: BERNIE RIVERA MD ADMIT DATE: 12/10/17/ER Signed Date of Exam: 12/10/17 ABDOMEN, FLAT & UPRIGHT/DECUB INDICATION: Abdominal pain. TIME OF EXAM: 3:02 p.m. No free air is seen. Bowel gas pattern is nonobstructed. No pathologic calcifications are seen. Large mass in the left lower lung is again noted. IMPRESSION: No acute feature in the abdomen is identified. Dictated by: Dictated on workstation # [id number] Dict: 12/10/17 1459 Trans: 12/10/17 154 Interpreted by: PEARL SHAVER MD Electronically signed by: PEARL SHAVER MD 12/10/171541 Diagonstic Imaging: Xray Plain Films/CT/US/NM/MRI: chest Comments Chest x-ray viewed by me and report reviewed. See report below: NAME: DAVID TRAYLOR JR [facility] REC#: [id number] PT STATUS: REG ER : 1950 PHYSICIAN: BERNIE RIVERA MD ADMIT DATE: 12/10/17/ER Signed Date of Exam: 12/10/17 CHEST PA/LAT (2 VIEW) INDICATION: Right-sided abdominal pain radiating to the back. TIME OF EXAM: 3:00 p.m. COMPARISON: Correlation is made with prior chest radiograph from 10/08/2017. FINDINGS: There is an enlarging mass identified in the left chest, which appears to be in the superior segment of the left lower lobe. This measures 8.2 cm cephalocaudal compared with 4 cm on prior. Right lung is clear. No effusion is seen. There is no pneumothorax. IMPRESSION: Enlarging left lower lobe mass when compared with examination from two months earlier. Dictated by: Dictated on workstation # [id number] Dict: 12/10/17 1457 Trans: 12/10/17 154 Interpreted by: PEARL SHAVER MD Electronically signed by: PEARL SHAVER MD 12/10/17 1542 Departure Impression Primary Impression: Right upper quadrant pain Additional Impression: Abdominal mass, RUQ (right upper quadrant) Disposition: 01 HOME, SELF-CARE Condition: Against Medical Advice Departure-Patient Inst. Decision time for Depature: 15:44 Referrals: MURRAY CABALLERO MD (PCP) Primary Care Physician Patient Instructions: Acute Abdomen (Belly Pain), Adult (DC) Add. Discharge Instructions: Based on review of your CT scan images, it is likely your pain is caused by pressure from the abdominal mass. Continue using your pain medications as prescribed. Return to care if symptoms are worsening or unmanageable at home. All discharge instructions reviewed with patient and/or family. Voiced understanding. Scripts Oxycodone HCl/Acetaminophen (Percocet 5-325 mg Tablet) 1 Each Tablet 1 EACH PO Q4H PRN for PAIN-MODERATE MDD 6, #15 TAB Prov: BERNIE RIVERA MD 12/10/17 Copy Copies To 1: SHALONDA GAITAN MD Copies To 2: NURA KENDRICK JOSHUA T MD Dec 10, 2017 15:45
[2017-12-10 15:51] VITALS: BP 117/69
[2017-12-10] MEDS ORDERED: OXYC1TAB87 PO (15:53)
== END 2017-12-10 15:51 | disposition home or self-care (01) ==
LOC: EDUNIT# 12:16 → ER 12:17
DX: R10.11 Right upper quadrant pain (principal); R19.01 Right upper quadrant abdominal swelling, mass and lump; C34.90 Malignant neoplasm of unspecified part of unspecified bronchus or lung; C76.2 Malignant neoplasm of abdomen; F12.10 Cannabis abuse, uncomplicated; F17.210 Nicotine dependence, cigarettes, uncomplicated; Z88.5 Allergy status to narcotic agent; Z87.19 Personal history of other diseases of the digestive system; Z80.8 Family history of malignant neoplasm of other organs or systems
CPT/HCPCS: 36415; 71046; 74019; 80053; 81000; 83690; 85025; 96372

== ENCOUNTER 2017-12-18 03:04 | Emergency (ER) | payer MEDICAID, MEDICARE ==
[~2017-12-18] VITALS: Ht 175.3 cm; Wt 56.7 kg
[~2017-12-18 03:04] MED LIST changes: +OXYC1TAB87 PO
[2017-12-18] MEDS ORDERED: ONDANSETRON 4 MG/2 ML (SDV) Z0FRAN IVP ONE (03:30)
[2017-12-18] MEDS ORDERED: fentaNYL INJECTION 100 MCG/2 ML AMP IVP ONE (03:30)
[2017-12-18 03:44] LABS: BASOPHILS # (AUTO) 0.1 10^3/uL (0.0-0.1); BASOPHILS % (AUTO) 1 % (0-10); EOSINOPHILS % (AUTO) 0 % (0-10); HEMATOCRIT 37 % (40-54); HEMOGLOBIN 11.6 G/DL (13.3-17.7); LYMPHOCYTES # (AUTO) 1.8 X 10^3 (1.0-4.0); LYMPHOCYTES % (AUTO) 10 % (12-44); MEAN CORPUSCULAR HEMOGLOBIN 24 PG (25-34); MEAN CORPUSCULAR HGB CONC 31 G/DL (32-36); MEAN CORPUSCULAR VOLUME 76 FL (80-99); MEAN PLATELET VOLUME 9.5 FL (7.4-10.4); MONOCYTES # (AUTO) 1.5 X 10^3 (0.0-1.0); MONOCYTES % (AUTO) 9 % (0-12); NEUTROPHILS # (AUTO) 13.8 X 10^3 (1.8-7.8); NEUTROPHILS % (AUTO) 80 % (42-75); PLATELET COUNT 619 10^3/uL (130-400); RED BLOOD COUNT 4.88 10^6/uL (4.35-5.85); RED CELL DISTRIBUTION WIDTH 16.5 % (10.0-14.5); WHITE BLOOD COUNT 17.2 10^3/uL (4.3-11.0)
[2017-12-18] MEDS ORDERED: KETOROLAC 30 MG/ML VIAL IVP ONE (04:00)
[2017-12-18 04:02] LABS: ANISOCYTOSIS SLIGHT; EOSINOPHILS % (MANUAL) 1 %; LYMPHOCYTES % (MANUAL) 8 %; MICROCYTOSIS SLIGHT; MONOCYTES % (MANUAL) 6 %; NEUTROPHILS % (MANUAL) 85 %
[2017-12-18] MEDS ORDERED: KETOROLAC 30 MG/ML VIAL ONE (04:03)
[2017-12-18 04:06] LABS: BILIRUBIN,URINE NEGATIVE (NEGATIVE); CLARITY,URINE CLEAR; COLOR,URINE YELLOW; GLUCOSE, URINE (UA) NEGATIVE (NEGATIVE); KETONES,URINE 2+ (NEGATIVE); LEUKOCYTE ESTERASE ,URINE NEGATIVE (NEGATIVE); NITRITE,URINE NEGATIVE (NEGATIVE); PH,URINE 5 (5-9); PROTEIN,URINE 3+ (NEGATIVE); UROBILINOGEN,URINE NORMAL (NORMAL)
[2017-12-18 04:10] LABS: ALANINE AMINOTRANSFERASE 14 U/L (0-55); ALBUMIN 4.3 GM/DL (3.2-4.5); ALKALINE PHOSPHATASE 91 U/L (40-136); BILIRUBIN,TOTAL 0.9 MG/DL (0.1-1.0); BUN/CREATININE RATIO 14; CALCIUM 10.5 MG/DL (8.5-10.1); CARBON DIOXIDE 23 MMOL/L (21-32); CHLORIDE 98 MMOL/L (98-107); CREATININE SERUM 1.18 MG/DL (0.60-1.30); GFR ESTIMATED > 60; GLUCOSE 130 MG/DL (70-105); LIPASE 6 U/L (8-78); POTASSIUM 4.4 MMOL/L (3.6-5.0); SODIUM 135 MMOL/L (135-145); TOTAL PROTEIN 9.1 GM/DL (6.4-8.2)
[2017-12-18 04:16] LABS: BACTERIA,URINE NEGATIVE /HPF
[2017-12-18] MEDS ORDERED: RX-ONDANSETRON 4 MG ODT (ZOFRAN) PPK #4 SL STA (04:26)
[2017-12-18] MEDS ORDERED: oxyCODONE ER 10 MG (OxyCONTIN CR) TAB PO ONE (04:30)
[2017-12-18] MEDS ORDERED: RX-ONDANSETRON 4 MG ODT (ZOFRAN) PPK #4 ONE (04:33)
[2017-12-18] MEDS ORDERED: OXYC-471 PO (04:35)
[2017-12-18] MEDS ORDERED: ONDA4TAB8 SL (04:35)
[2017-12-18] MEDS ORDERED: OXC10TCR PO (04:35)
[2017-12-18] MEDS ORDERED: POLY119P5 PO (04:37)
--- NOTE | 2017-12-18 04:37 | ED Abdominal Pain ---
General Chief Complaint: Abdominal/GI Problems Stated Complaint: ABD PAIN Nursing Triage Note: AMBULATORY TO ED MOANING AND C/O ABD PAIN. PT STATES HE HAS STOMACH CANCER AND TOOK LAST PAIN PILL HE HAD AT 0015 AND IT IS NOT WORKING. Sepsis Screen: No Definite Risk Source of Information: Patient Exam Limitations: No Limitations History of Present Illness Date Seen by Provider: Dec 18, 2017 Time Seen by Provider: 03:20 Initial Comments This 67-year-old gentleman with an abdominal mass presents to the emergency room with worsening abdominal pain and associated nausea. He has been taking Percocet but is running out of medication. He is believed to have metastatic cancer and is presently under workup and treatment. He has not had a follow-up appointment with anyone since last being seen in the ER. Allergies and Home Medications Allergies Coded Allergies: codeine (Verified Allergy, Unknown, 09/28/17) Home Medications Calcium Carbonate 200 Mg Tab.chew, 400 MG PO Q4H PRN for HEARTBURN, (Reported) Omeprazole 40 Mg Capsule.dr, 40 MG PO DAILY Prescribed by: SANDRO GRAY on 10/03/17 1115 Ondansetron 4 Mg Tab.rapdis, 4 MG SL Q4H PRN for NAUSEA/VOMITING-1ST LINE Prescribed by: BERNIE SALAS on 12/18/17 043 Oxycodone HCl 10 Mg Tab.er.12h, 10 MG PO BID Prescribed by: BERNIE SALAS on 12/18/17 0435 Oxycodone HCl/Acetaminophen 1 Each Tablet, 1 EACH PO Q4H PRN for PAIN-MODERATE Prescribed by: BERNIE SALAS on 12/10/17 1553 Oxycodone HCl/Acetaminophen 1 Each Tablet, 1-2 EACH PO Q6H PRN for PAIN-MODERATE Prescribed by: BERNIE SALAS on 12/18/17 0435 Polyethylene Glycol 3350 119 Gm Powder, 17 GM PO BID PRN for CONSTIPATION-1ST LINE Fill cap to line. Dissolve in 8-12 ounces of liquid. Prescribed by: BERNIE SALAS on 12/18/17 0437 Patient Home Medication List Home Medication List Reviewed: Yes Review of Systems Review of Systems Constitutional: no symptoms reported EENTM: No Symptoms Reported Respiratory: No Symptoms Reported Cardiovascular: No Symptoms Reported Gastrointestinal: See HPI Genitourinary: No Symptoms Reported Musculoskeletal: no symptoms reported Psychiatric/Neurological: No Symptoms Reported Endocrine: No Symptoms Reported Hematologic/Lymphatic: See HPI Past Ycglivz-Dfleji-Uocnha Hx Patient Social History Alcohol Use: Occasionally Uses Number of Drinks Today: AA Alcohol Beverage of Choice: Beer Recreational Drug Use: Yes Drug of Choice: marijuana Type Used: Cigarettes Recent Foreign Travel: No Contact w/Someone Who Travel: No Recent Infectious Disease Expo: No Recent Hopitalizations: No Immunizations Up To Date Tetanus Booster (TDap): Unknown Seasonal Allergies Seasonal Allergies: No Past Medical History Surgeries: Yes (stomach ulcer repair) Respiratory: No Cardiac: No Neurological: No Genitourinary: No Gastrointestinal: Yes Gastrointestinal Bleed, Ulcer Musculoskeletal: No Endocrine: No HEENT: No Cancer: Yes Lung, Stomach Did You Recieve Any Treatments: Yes What Type of Treatment Did You: Chemotherapy Psychosocial: No Integumentary: No Blood Disorders: Yes Adverse Reaction/Blood Tranf: No Family Medical History Cancer 19 MOTHER G8 SISTER (bone cancer) FH: cancer Cancer Physical Exam Vital Signs Vital Signs - First Documented 12/18/17 12/18/17 03:23 05:04 Temp 97.3 Pulse 90 Resp 17 B/P (MAP) 135/85 (102) Pulse Ox 98 O2 Delivery Room Air Capillary Refill : Less Than 3 Seconds Height/Weight/BMI Height: 5'9.00" Weight: 125lbs. 0.0oz. 56.289637ys; 17.4 BMI Method:Stated General Appearance: WD/WN, moderate distress HEENT: PERRL/EOMI, normal ENT inspection Neck: normal inspection Respiratory: lungs clear, normal breath sounds, no respiratory distress, no accessory muscle use Cardiovascular: regular rate, rhythm, no edema, no murmur Gastrointestinal: normal bowel sounds, soft, tenderness (right upper quadrant and epigastrium), mass Extremities: normal inspection Neurologic/Psychiatric: roving department end finder II-XII nml as tested, no motor/sensory deficits, alert, normal mood/affect, oriented x 3 Skin: normal color, warm/dry Progress/Results/Core Measures Results/Orders Lab Results Laboratory Tests Test 12/18/17 03:33 12/18/17 04:00 Range/Units White Blood Count 17.2 H 4.3-11.0 10^3/uL Red Blood Count 4.88 4.35-5.85 10^6/uL Hemoglobin 11.6 L 13.3-17.7 G/DL Hematocrit 37 L 40-54 % Mean Corpuscular Volume 76 L 80-99 FL Mean Corpuscular Hemoglobin 24 L 25-34 PG Mean Corpuscular Hemoglobin Concent 31 L 32-36 G/DL Red Cell Distribution Width 16.5 H 10.0-14.5 % Platelet Count 619 H 130-400 10^3/uL Mean Platelet Volume 9.5 7.4-10.4 FL Neutrophils (%) (Auto) 80 H 42-75 % Lymphocytes (%) (Auto) 10 L 12-44 % Monocytes (%) (Auto) 9 0-12 % Eosinophils (%) (Auto) 0 0-10 % Basophils (%) (Auto) 1 0-10 % Neutrophils # (Auto) 13.8 H 1.8-7.8 X 10^3 Lymphocytes # (Auto) 1.8 1.0-4.0 X 10^3 Monocytes # (Auto) 1.5 H 0.0-1.0 X 10^3 Eosinophils # (Auto) 0.0 0.0-0.3 10^3/uL Basophils # (Auto) 0.1 0.0-0.1 10^3/uL Neutrophils % (Manual) 85 % Lymphocytes % (Manual) 8 % Monocytes % (Manual) 6 % Eosinophils % (Manual) 1 % Anisocytosis SLIGHT Microcytosis SLIGHT Sodium Level 135 135-145 MMOL/L Potassium Level 4.4 3.6-5.0 MMOL/L Chloride Level 98 98-107 MMOL/L Carbon Dioxide Level 23 21-32 MMOL/L Anion Gap 14 5-14 MMOL/L Blood Urea Nitrogen 16 7-18 MG/DL Creatinine 1.18 0.60-1.30 MG/DL Estimat Glomerular Filtration Rate > 60 BUN/Creatinine Ratio 14 Glucose Level 130 H 70-105 MG/DL Calcium Level 10.5 H 8.5-10.1 MG/DL Corrected Calcium 10.3 H 8.5-10.1 MG/DL Total Bilirubin 0.9 0.1-1.0 MG/DL Aspartate Amino Transf (AST/SGOT) 15 5-34 U/L Alanine Aminotransferase (ALT/SGPT) 14 0-55 U/L Alkaline Phosphatase 91 40-136 U/L Total Protein 9.1 H 6.4-8.2 GM/DL Albumin 4.3 3.2-4.5 GM/DL Lipase 6 L 8-78 U/L Urine Color YELLOW Urine Clarity CLEAR Urine pH 5 5-9 Urine Specific [place] 1.025 H 1.016-1.022 Urine Protein 3+ H NEGATIVE Urine Glucose (UA) NEGATIVE NEGATIVE Urine Ketones 2+ H NEGATIVE Urine Nitrite NEGATIVE NEGATIVE Urine Bilirubin NEGATIVE NEGATIVE Urine Urobilinogen NORMAL NORMAL MG/DL Urine Leukocyte Esterase NEGATIVE NEGATIVE Urine RBC (Auto) 2+ H NEGATIVE Urine RBC 2-5 H /HPF Urine WBC NONE /HPF Urine Squamous Epithelial Cells 2-5 /HPF Urine Crystals NONE /LPF Urine Bacteria NEGATIVE /HPF Urine Casts NONE /LPF Urine Mucus MODERATE H /LPF Urine Culture Indicated NO My Orders Orders - BERNIE RIVERA MD Saline Lock/Iv-Start (12/18/17 03:25) Cbc With Automated Diff (12/18/17 03:25) Comprehensive Metabolic Panel (12/18/17 03:25) Lipase (12/18/17 03:25) Ua Culture If Indicated (12/18/17 03:25) Fentanyl Injection (Sublimaze Injection (12/18/17 03:30) Ondansetron Injection (Zofran Injectio (12/18/17 03:30) Manual Differential (12/18/17 03:33) Abdomen, Flat & Upright/Decub (12/18/17 03:59) Ketorolac Injection (Toradol Injection) (12/18/17 04:00) Rx-Ondansetron Po (Rx-Zofran Po) (12/18/17 04:26) Oxycodone Extended Release Tab (Oxyconti (12/18/17 04:30) Ketorolac Injection (Toradol Injection) (12/18/17 04:03) Rx-Ondansetron Po (Rx-Zofran Po) (12/18/17 04:33) Iv Push Government Teacher Ed (12/18/17 ) Medications Given in ED Vital Signs/I&O 12/18/17 12/18/17 03:23 05:04 Temp 97.3 97.3 Pulse 90 90 Resp 17 17 B/P (MAP) 135/85 (102) 135/85 (102) Pulse Ox 98 O2 Delivery Room Air Blood Pressure Mean: 102 Progress Progress Note : Progress Note Patient was initially treated with fentanyl. OxyContin and Toradol were later added. Labs demonstrated no acute issues that need immediate treatment. Patient does have leukocytosis which has been persistent since September. The location of patient's pain is consistent with the location of the abdominal mass. Departure Impression Primary Impression: Abdominal mass Qualified Codes: R19.06 - Epigastric swelling, mass or lump Additional Impressions: Upper abdominal pain Nausea Metastatic disease Disposition: HOME, SELF-CARE Condition: Improved Departure-Patient Inst. Referrals: MURRAY CABALLERO MD (PCP/Family) Primary Care Physician Patient Instructions: Constipation, Adult (DC) Add. Discharge Instructions: Drink plenty of clear liquids. Use Zofran (ondansetron) as prescribed for treatment of nausea. Use the OxyContin twice daily for baseline pain control. Use the Percocet ( oxycodone) for breakthrough pain. Use MiraLAX (polyethylene glycol) as prescribed for treatment of constipation. Return to care if symptoms worsen. All discharge instructions reviewed with patient and/or family. Voiced understanding. Scripts Polyethylene Glycol 3350 (Miralax) 119 Gm Powder 17 GM PO BID PRN for CONSTIPATION-1ST LINE, #1 EA Fill cap to line. Dissolve in 8-12 ounces of liquid. Prov: BERNIE RIVERA MD 12/18/17 Ondansetron (Zofran Odt) 4 Mg Tab.rapdis 4 MG SL Q4H PRN for NAUSEA/VOMITING-1ST LINE, #20 TAB Prov: BERNIE RIVERA MD 12/18/17 Oxycodone HCl/Acetaminophen (Oxycodone-Acetaminophen 5-325) 1 Each Tablet 1-2 EACH PO Q6H PRN for PAIN-MODERATE MDD 6, #30 TAB Prov: BERNIE RIVERA MD 12/18/17 Oxycodone HCl (Oxycontin) 10 Mg Tab.er.12h 10 MG PO BID, #30 TAB Prov: BERNIE RIVERA MD 12/18/17 BERNIE RIVERA MD Dec 18, 2017 04:37
[2017-12-18 05:04] VITALS: BP 135/85
--- NOTE | 2017-12-18 08:38 | Diagnostic Imaging Report ---
Abdomen flat and upright. Indication: Abdominal pain. Supine and erect views were obtained. The prior exam of 12/10/2017 noted some gas in both large and small bowel in a nonspecific fashion. In the interval since the prior exam, there has been increase in the amount of gas throughout the transverse colon and the splenic flexure. There is also now a fair amount of fecal material in the region of the transverse colon. There is some gas in the small bowel as well. There is no evidence for a bowel obstruction however. There is no mass, organomegaly or pathological calcification evident. The large mass involving the left seen on the prior chest exam of 12/10/2017 is partially visualized on this study. There is also a much smaller 1.4 cm nodular density in the right lung base. This finding was not clearly evident on the prior CT chest exam of 09/28/17 and this nodule may be neoplastic as well. Osseous structures are intact. Impression: 1. There has been increase in the amount of gas and fecal material in the transverse and descending colon since the prior exam. There is no acute abnormality noted otherwise. 2. The nodular density overlying the right lung base may be neoplastic in nature. Dictated by: Dictated on workstation # [id number]
== END 2017-12-18 05:05 | disposition home or self-care (01) ==
LOC: EDUNIT# 03:04 → ER 03:07
DX: G89.3 Neoplasm related pain (acute) (chronic) (principal); C16.9 Malignant neoplasm of stomach, unspecified; C78.00 Secondary malignant neoplasm of unspecified lung; R11.0 Nausea; F12.10 Cannabis abuse, uncomplicated; Z92.21 Personal history of antineoplastic chemotherapy; Z87.19 Personal history of other diseases of the digestive system; Z88.5 Allergy status to narcotic agent; Z80.8 Family history of malignant neoplasm of other organs or systems
CPT/HCPCS: 36415; 74019; 80053; 81000; 83690; 85007; 85027; 96374; 96375

== ENCOUNTER → 2017-12-31 | Outpatient (CLI) | payer MEDICARE, MEDICAID ==
[~2017-12-31] MED LIST changes: +GADOBUTROL 7.5 MMOL/7.5 ML (GADAVIST) VIAL IV ONE; +ONDA4TAB8 SL; +OXC10TCR PO; +OXYC-471 PO; +POLY119P5 PO
--- NOTE | 2017-12-31 12:38 | Diagnostic Imaging Report ---
Indication: Pre-MRI screening. Time of exam 12:10 PM Impression: No radiopaque orbital foreign bodies are detected. Dictated by: Dictated on workstation # [id number]
--- NOTE | 2017-12-31 13:18 | Diagnostic Imaging Report ---
PROCEDURE: MR imaging of the brain with and without contrast. TECHNIQUE: Multiplanar, multisequence MR imaging of the brain was performed with and without contrast. INDICATION: Recently diagnosed lung and stomach carcinoma. COMPARISON: No prior MRI brain studies are available for comparison. FINDINGS: The ventricles and sulci are within normal limits. Mild periventricular and subcortical white matter signal abnormalities are noted, likely on the basis of chronic microvascular ischemia. There is no diffusion restriction. The normal expected flow-voids within the carotid siphons are seen. No acute intra-axial or extra-axial hemorrhage is identified. The corpus callosum is unremarkable. The sella and parasellar structures are unremarkable. No abnormal enhancement is seen following contrast administration. IMPRESSION: Mild white matter changes, perhaps on the basis of chronic microvascular ischemia. There are no findings to suggest intracranial metastatic disease. Dictated by: Dictated on workstation # [id number]
== END ==
LOC: RAD 11:25
PROVIDERS: ATTEND Internal Medicine Hematology & Oncology
DX: Z01.818 Encounter for other preprocedural examination (principal); C16.1 Malignant neoplasm of fundus of stomach; C34.90 Malignant neoplasm of unspecified part of unspecified bronchus or lung; R90.82 White matter disease, unspecified; I67.82 Cerebral ischemia
CPT/HCPCS: 70553

== ENCOUNTER → 2018-01-01 | Outpatient (CLI) | payer MEDICAID ==
[~2018-01-01] MED LIST changes: -GADOBUTROL 7.5 MMOL/7.5 ML (GADAVIST) VIAL IV ONE
== END | disposition home or self-care (01) ==
LOC: PREOP 06:42
PROVIDERS: ATTEND Surgery
DX: Z01.818 Encounter for other preprocedural examination (principal)

== ENCOUNTER 2018-01-04 09:44 | Day surgery (SDC) | payer MEDICAID, MEDICARE ==
[~2018-01-04] VITALS: Ht 175.3 cm; Wt 53.5 kg
[2018-01-04 10:00] VITALS: BP 134/71
[2018-01-04] MEDS ORDERED: ceFAZolin INJECTION 1,000 MG in NS (IVPB) 50 ML IV ONE (10:00)
[2018-01-04] MEDS ORDERED: 0.9% SODIUM CHLORIDE PF INJ 20 ML VIAL ONE (10:11)
[2018-01-04] MEDS ORDERED: HEParin (CENTRAL IV FLUSH) 500 UNIT/5 ML SYR ONE (10:11)
[2018-01-04] MEDS ORDERED: LIDOCAINE/EPI 1%-1:200,000 (XYLOCAINE) 10 ML VIAL ONE (10:12)
--- NOTE | 2018-01-04 10:16 | Progress Note-Pre Operative ---
Pre-Operative Progress Note H&P Reviewed The H&P was reviewed, patient examined and no changes noted. Time Seen by Provider: 10:09 Date H&P Reviewed: Jan 04, 2018 Time H&P Reviewed: 10:10 Pre-Operative Diagnosis: Venous Insufficiency, Lung CA, Stomach CA, Adrenal CA NURA KENDRICK DO Jan 04, 2018 10:16
[2018-01-04] MEDS ORDERED: LACTATED RINGERS 1,000 ML IV PRN (11:21)
[2018-01-04] MEDS ORDERED: fentaNYL INJECTION 100 MCG/2 ML AMP ONE (12:24)
[2018-01-04] MEDS ORDERED: proPOfol 200 MG/20 ML (DIPRIVAN) VIAL IV ONE (12:24)
[2018-01-04] MEDS ORDERED: MIDAZOLAM 2 MG/2 ML (VERSED) VIAL ONE (12:25)
--- NOTE | 2018-01-04 13:11 | Progress Note-Post Operative ---
Post-Operative Progess Note Surgeon (s)/Receptionist/Telephone Operator (s) Surgeon NURA KENDRICK DO Receptionist/Telephone Operator: Aleksander Quezada MSIII Pre-Operative Diagnosis Venous Insufficiency, Lung CA, Stomach CA, Adrenal CA Post-Operative Diagnosis same Procedure & Operative Findings Date of Procedure 01/04/18 Procedure Performed/Findings Koki-cath insertion Anesthesia Type IV sedation by DRILLING FIELD OPERATOR Estimated Blood Loss Estimated blood loss (mL): scant Specimens/Packing Specimens Removed none NURA KENDRICK DO Jan 04, 2018 13:11
--- NOTE | 2018-01-04 13:13 | Discharge Inst-Surgical ---
Discharge Inst-Surgical Depart Medication/Instructions New, Converted or Re-Newed RX: Other (no rx needed) Patient Instructions Follow up Appt: Make appointment for 1 week. Instructions: No strenuous activity. May shower in 24 hours, no tub bath or soaking. Use incentive spirometer at home as directed. No Smoking Skin/Wound Care: May remove bandages in am. You need to leave the Dermabond on over incision it will fall off on its own. Symptoms to Report: Appetite Changes, Extremity Discoloration, Numbness/Tingling, Swelling Increased , Bleeding Excessive, Eyesight Changes, Pain Increased, Urine Color Change, Constipation(Persistent), Fever over 101 degree F, Pain/Pressure in chest, Urinating Difficulty, Cough Up/Vomit Blood, Heart Beat Irreg/Pounding, Pain/ Pressure in jaw, Cramps in feet or legs, Lightheadedness, Pain/Pressure in shoulder, Diarrhea(Persistent), Memory Changes Suddenly, Questions/Concerns, Weight gain consecutive days, Dizziness/Fainting, Nausea/Vomiting, Shortness of Breath, Weight gain over 2 pounds If questions or concerns contact your physician Or seek help at emergency department. Activity Activity Instructions: Avoid Stress to Incision Driving Instructions: No Driving/Refer to Dr. Velazquez Discharge Diet: No Restrictions Diet After 24 Hours: Clear Liquid if Nauseous If Any Problems/Questions/Issu: Contact Your Physician, Go to Emergency Room Skin/Wound Care Infection Signs and Symptoms: Increased Redness, Foul Odor of Wound, Increased Drainage, Skin Itchy or Has a Rash, Increased Swelling, Temperature Above 101 F Bathing Instructions: Shower Stitches/Adriano/Dermabond Dis: Dermabond Ice Pack: Ice On and Off Site (as needed for pain) NURA KENDRICK DO Jan 04, 2018 13:13
[2018-01-04] MEDS ORDERED: ONDANSETRON 4 MG/2 ML (SDV) Z0FRAN IVP PRN (13:15)
[2018-01-04] MEDS ORDERED: MEPERIDINE (DEMEROL) INJ 50 MG/ML IVP ONE (13:15)
[2018-01-04] MEDS ORDERED: morphine INJ 10 MG/ML 1ML (SYR OR VIAL) IVP ONE (13:15)
--- NOTE | 2018-01-04 13:28 | Diagnostic Imaging Report ---
INDICATION: Catheter placement. FINDINGS: A single view of the chest was obtained. An Qraxzh-c-Lwok catheter overlies the left hemithorax. The tip is in the upper superior vena cava. IMPRESSION: Intraoperative fluoroscopy during Mwwppa-p-Fuxv catheter placement as described. Dictated by: Dictated on workstation # [id number]
[2018-01-04 13:30] VITALS: BP 130/70
[2018-01-04 14:00] VITALS: BP 152/81
[2018-01-04 14:30] VITALS: BP 149/79
[2018-01-04 14:45] VITALS: BP 149/79
--- NOTE | 2018-01-04 15:06 | Anesthesia-General Post-Op ---
MAC Patient Condition Mental Status/LOC: Same as Preop Cardiovascular: Satisfactory Nausea/Vomiting: Absent Respiratory: Satisfactory Pain: Controlled Complications: Absent Post Op Complications Complications None Follow Up Care/Instructions Patient Instructions None needed. Anesthesiology Discharge Order Discharge Order Patient is doing well, no complaints, stable vital signs, no apparent adverse anesthesia problems. No complications reported per nursing. FLORES LARES CRNA Jan 04, 2018 15:06
--- NOTE | 2018-01-04 21:20 | OPERATIVE REPORT ---
DATE OF SERVICE: 01/04/2018 PREOPERATIVE DIAGNOSES: 1. Venous insufficiency. 2. Lung cancer. 3. Stomach cancer. 4. Adrenal cancer. POSTOPERATIVE DIAGNOSES: 1. Venous insufficiency. 2. Lung cancer. 3. Stomach cancer. 4. Adrenal cancer. PROCEDURES: Insertion of Port-A-Cath. SURGEON: Harrison Morris DO POLYMER SPECIALIST: Aleksander Quezada, medical student, level 3. 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 BLOOD LOSS: Less than 5 mL. SPECIMENS: None. FLUIDS: Per anesthesia. POSTOPERATIVE CONDITION: Stable. INDICATION FOR PROCEDURE: The patient is a 67-year-old male, who unfortunately has lung cancer as well as stomach cancer and adrenal cancer, needs a Port-A-Cath placed secondary to venous insufficiency and for long-term chemotherapy. FINDINGS: The patient had a Port-A-Cath placed in left anterior chest wall, left subclavian vein. PROCEDURE NOTE: After informed consent was obtained, the patient was brought to the operating room, placed on the table in supine position. He is sterilely prepped and draped in normal fashion. Local lidocaine was used to infiltrate the skin at the left anterior chest wall towards the clavicle as well as then down on the chest wall to create a pocket. Then, using an 18-gauge fine needle advanced the needle under negative inspiration under the clavicle. On the first attempt, got a good flash of blood, removed the syringe, placed a guidewire using Seldinger technique, checked with fluoroscopy, it was in good position. I made a stab incision with #11 blade right along the guidewire and then made an incision in the chest wall with #11 blade, carried down through the skin into the subcutaneous tissue, deepened down to subcutaneous tissue with Bovie electrocautery down to the fascia of pectoralis muscle and then made a pocket with blunt dissection as well. Tunneled the catheter through from the stab incision into this pocket and then over the guidewire, placed a dilator using Seldinger technique, checked with fluoroscopy, it was in good position, removed the inner portion of the dilator as well as the guidewire and then placed the catheter down the dilator sheath using the Seldinger technique. Again, checked with fluoroscopy, it was in good position, removed the dilator sheath, attached the port and then sutured the port down to the chest wall with a 3-0 Prolene suture, placed this into the pocket and then placed a Wong needle, easily aspirated and then flushed first with saline and then with 2 mL of heparin, checked with fluoroscopy, there were no kinks, catheter position looked good. At this point, then closed the incision closing the subcutaneous tissue with 3-0 Vicryl 2 interrupted suture and then closed the skin with 4-0 undyed Monocryl 3 interrupted subcuticular stitches. Area was cleaned and dried. Dermabond was placed as well as dressing. The patient was then transferred to recovery room in stable condition. Sponge, instrument and needle counts were correct at the end of the case. Job ID: [id number] DocumentID: [id number] Dictated Date: 01/04/2018 18:16:40 Business Continuity Global Director Date: 01/04/2018 21:18:56 Dictated By: HARRISON MORRIS DO
== END 2018-01-04 14:45 | disposition home or self-care (01) ==
LOC: SDC 09:44
PROVIDERS: ATTEND Surgery
DX: I87.2 Venous insufficiency (chronic) (peripheral) (principal); C34.92 Malignant neoplasm of unspecified part of left bronchus or lung; C16.1 Malignant neoplasm of fundus of stomach; C79.70 Secondary malignant neoplasm of unspecified adrenal gland; F17.210 Nicotine dependence, cigarettes, uncomplicated; Z79.899 Other long term (current) drug therapy; Z11.2 Encounter for screening for other bacterial diseases
CPT/HCPCS: 87081

== ENCOUNTER 2018-01-04 17:40 | Emergency (ER) | payer MEDICARE, MEDICAID ==
[~2018-01-04] VITALS: Ht 175.3 cm; Wt 53.5 kg
[2018-01-04] MEDS ORDERED: NS IV 1000 ML 1,000 ML IV ONE (18:25)
[2018-01-04 18:57] LABS: BASOPHILS # (AUTO) 0.1 10^3/uL (0.0-0.1); BASOPHILS % (AUTO) 1 % (0-10); EOSINOPHILS % (AUTO) 0 % (0-10); HEMATOCRIT 29 % (40-54); HEMOGLOBIN 9.4 G/DL (13.3-17.7); LYMPHOCYTES # (AUTO) 0.8 X 10^3 (1.0-4.0); LYMPHOCYTES % (AUTO) 7 % (12-44); MEAN CORPUSCULAR HEMOGLOBIN 25 PG (25-34); MEAN CORPUSCULAR HGB CONC 33 G/DL (32-36); MEAN CORPUSCULAR VOLUME 77 FL (80-99); MEAN PLATELET VOLUME 9.7 FL (7.4-10.4); MONOCYTES % (AUTO) 9 % (0-12); NEUTROPHILS # (AUTO) 9.4 X 10^3 (1.8-7.8); NEUTROPHILS % (AUTO) 84 % (42-75); PLATELET COUNT 495 10^3/uL (130-400); RED BLOOD COUNT 3.74 10^6/uL (4.35-5.85); RED CELL DISTRIBUTION WIDTH 16.4 % (10.0-14.5); WHITE BLOOD COUNT 11.2 10^3/uL (4.3-11.0)
[2018-01-04 19:15] LABS: ALANINE AMINOTRANSFERASE 15 U/L (0-55); ALBUMIN 3.3 GM/DL (3.2-4.5); ALKALINE PHOSPHATASE 71 U/L (40-136); BAND NEUTROPHILS 0 %; BASOPHILS % (MANUAL) 1 %; BILIRUBIN,TOTAL 0.4 MG/DL (0.1-1.0); BUN/CREATININE RATIO 19; CARBON DIOXIDE 22 MMOL/L (21-32); CHLORIDE 103 MMOL/L (98-107); CREATININE SERUM 0.84 MG/DL (0.60-1.30); EOSINOPHILS % (MANUAL) 0 %; GFR ESTIMATED > 60; GLUCOSE 105 MG/DL (70-105); LYMPHOCYTES % (MANUAL) 4 %; MAGNESIUM 1.8 MG/DL (1.8-2.4); MONOCYTES % (MANUAL) 5 %; NEUTROPHILS % (MANUAL) 90 %; POTASSIUM 4.2 MMOL/L (3.6-5.0); SODIUM 135 MMOL/L (135-145); TOTAL PROTEIN 7.1 GM/DL (6.4-8.2)
[2018-01-04 19:16] LABS: ANISOCYTOSIS SLIGHT; HYPOCHROMASIA MODERATE; MICROCYTOSIS SLIGHT; POIKILOCYTOSIS SLIGHT; SPHEROCYTES SLIGHT
[2018-01-04 19:26] LABS: BILIRUBIN,URINE NEGATIVE (NEGATIVE); CLARITY,URINE CLEAR; COLOR,URINE YELLOW; GLUCOSE, URINE (UA) NEGATIVE (NEGATIVE); KETONES,URINE NEGATIVE (NEGATIVE); LEUKOCYTE ESTERASE ,URINE NEGATIVE (NEGATIVE); NITRITE,URINE NEGATIVE (NEGATIVE); PH,URINE 6.5 (5-9); PROTEIN,URINE 2+ (NEGATIVE); UROBILINOGEN,URINE NORMAL (NORMAL)
[2018-01-04 19:32] LABS: BACTERIA,URINE NEGATIVE /HPF; WBC,URINE RARE /HPF
--- NOTE | 2018-01-04 19:32 | Diagnostic Imaging Report ---
INDICATION: Port placement. History of stomach and lung cancer. COMPARISON: Chest radiograph of 12/10/2017. FINDINGS: A large mass within the left lower lobe is unchanged. No new pulmonary mass or consolidation. No pleural effusion or pneumothorax. Heart is normal in size. Left subclavian Port-A-Cath has tip terminating in the upper SVC. IMPRESSION: 1. Left subclavian Port-A-Cath has tip in the upper SVC. No pneumothorax. 2. Stable left lower lobe pulmonary mass. Dictated by: Dictated on workstation # [id number]
[2018-01-04 19:33] LABS: URINE OTHER FEW SPERM /HPF
--- NOTE | 2018-01-04 19:34 | Diagnostic Imaging Report ---
INDICATION: Nausea and constipation. COMPARISON: Chest radiograph performed concurrently. FINDINGS: Nonobstructive bowel gas pattern. There is a moderate amount of colonic stool present. No evidence of free intraperitoneal air. Partially imaged left lung mass. IMPRESSION: 1. Nonobstructive bowel gas pattern. 2. Moderate volume of colonic stool. Dictated by: Dictated on workstation # [id number]
[2018-01-04] MEDS ORDERED: LACTATED RINGERS 1,000 ML IV ONE (19:46)
--- NOTE | 2018-01-04 19:54 | ED Abdominal Pain ---
General Chief Complaint: Abdominal/GI Problems Stated Complaint: PORT PUT IN THIS AFTERNOON DOES NOT FEEL RIGHT Nursing Triage Note: PT AMB TO ROOM #9 W/O DIFFIUCLTY. A&OX4. C/O NAUSEA AND DIZZINESS. PT REPORTS HE HAS NOT HAD A BM SINCE 01/02/18 AND HAS BEEN TAKING COLACE WITH NO RELIEF. PT REPORTS DR. KENDRICK PLACED LT SIDE CHEMO PORT THIS AM W/O DIFFICULTY. PT REPORTS HE WAS ABLE TO EAT SOUP AT LUNCH AND APPROX 1715 SYMPTOMS BEGAN. PT REPORTS HE IS WAITING TO UNDERGO TX FOR STOMACH AND LUNG CANCER. REPORTS FEVER AND CHILLS. PT IS CURRENTLY AFEBIRLE. Sepsis Screen: No Definite Risk Source of Information: Patient Exam Limitations: No Limitations History of Present Illness Date Seen by Provider: Jan 05, 2018 Time Seen by Provider: 18:09 Initial Comments This 67-year-old gentleman with known abdominal mass presents to emergency room with complaints of constipation with no bowel movement in 2 days. He has not taken any pain medication since yesterday. He has used Colace, MiraLAX, and magnesium citrate. He states magnesium citrate works for his constipation but causes a lot of GI upset. Today he had subjective fever and chills along with some lightheadedness. He is afebrile on presentation. He had a port placed this morning by Dr. Kendrick. Allergies and Home Medications Allergies Coded Allergies: codeine (Verified Allergy, Unknown, 09/28/17) Home Medications Calcium Carbonate 200 Mg Tab.chew, 400 MG PO Q4H PRN for HEARTBURN, (Reported) Omeprazole 40 Mg Capsule., 40 MG PO DAILY Prescribed by: SANDRO GRAY on 10/03/17 1115 Ondansetron 4 Mg Tab.rapdis, 4 MG SL Q4H PRN for NAUSEA/VOMITING-1ST LINE Prescribed by: BERNIE SALAS on 12/18/17 043 Oxycodone HCl 10 Mg Tab.er.12h, 10 MG PO BID Prescribed by: BERNIE SALAS on 12/18/17 043 Polyethylene Glycol 3350 119 Gm Powder, 17 GM PO BID PRN for CONSTIPATION-1ST LINE Fill cap to line. Dissolve in 8-12 ounces of liquid. Prescribed by: BERNIE SALAS on 12/18/17 0435 Patient Home Medication List Home Medication List Reviewed: Yes Review of Systems Review of Systems Constitutional: see HPI EENTM: No Symptoms Reported Respiratory: No Symptoms Reported Cardiovascular: No Symptoms Reported Gastrointestinal: See HPI Genitourinary: No Symptoms Reported Musculoskeletal: no symptoms reported Skin: no symptoms reported Psychiatric/Neurological: No Symptoms Reported Endocrine: No Symptoms Reported Hematologic/Lymphatic: No Symptoms Reported Past Arsqqfm-Uhuqdq-Wrnuzp Hx Past Med/Social Hx: Reviewed Nursing Past Med/Soc Hx Patient Social History Alcohol Use: Denies Use Number of Drinks Today: AA Alcohol Beverage of Choice: Beer Recreational Drug Use: No Drug of Choice: marijuana Smoking Status: Former Smoker Type Used: Cigarettes Former Smoker, Quit: Oct 28, 2017 2nd Hand Smoke Exposure: No Recent Foreign Travel: No Contact w/Someone Who Travel: No Recent Infectious Disease Expo: No Recent Hopitalizations: No Physical Abuse: No Sexual Abuse: No Mistreated: No Immunizations Up To Date Tetanus Booster (TDap): Unknown Seasonal Allergies Seasonal Allergies: No Past Medical History Surgeries: Yes (stomach ulcer repair, LT SIDE PORT PLACEMENT) Respiratory: No Cardiac: No Neurological: No Reproductive Disorders: No Genitourinary: No Gastrointestinal: Yes Gastrointestinal Bleed, Ulcer Musculoskeletal: No Endocrine: No HEENT: No Cancer: Yes Lung, Stomach Did You Recieve Any Treatments: Yes What Type of Treatment Did You: Chemotherapy Psychosocial: No Integumentary: No Blood Disorders: Yes Adverse Reaction/Blood Tranf: No Family Medical History Reviewed Nursing Family Hx Cancer 19 MOTHER G8 SISTER (bone cancer) FH: cancer Cancer Physical Exam Vital Signs Vital Signs - First Documented 01/04/18 17:50 Temp 97.2 Pulse 73 Resp 18 B/P (MAP) 134/72 (92) Pulse Ox 95 O2 Delivery Room Air Capillary Refill : Less Than 3 Seconds Height/Weight/BMI Height: 5'9.00" Weight: 118lbs. 0.0oz. [id number]; 17.4 BMI Method:Stated General Appearance: WD/WN, no apparent distress HEENT: PERRL/EOMI, normal ENT inspection, pharynx normal Neck: normal inspection Respiratory: lungs clear, normal breath sounds, no respiratory distress, no accessory muscle use Cardiovascular: regular rate, rhythm, no edema, no murmur Gastrointestinal: normal bowel sounds, soft, tenderness (Left upper quadrant) Extremities: normal inspection, no pedal edema Neurologic/Psychiatric: production repairer II-XII nml as tested, no motor/sensory deficits, alert, normal mood/affect, oriented x 3 Skin: normal color, warm/dry Progress/Results/Core Measures Results/Orders Lab Results Laboratory Tests Test 01/04/18 18:45 01/04/18 19:15 Range/Units White Blood Count 11.2 H 4.3-11.0 10^3/uL Red Blood Count 3.74 L 4.35-5.85 10^6/uL Hemoglobin 9.4 L 13.3-17.7 G/DL Hematocrit 29 L 40-54 % Mean Corpuscular Volume 77 L 80-99 FL Mean Corpuscular Hemoglobin 25 25-34 PG Mean Corpuscular Hemoglobin Concent 33 32-36 G/DL Red Cell Distribution Width 16.4 H 10.0-14.5 % Platelet Count 495 H 130-400 10^3/uL Mean Platelet Volume 9.7 7.4-10.4 FL Neutrophils (%) (Auto) 84 H 42-75 % Lymphocytes (%) (Auto) 7 L 12-44 % Monocytes (%) (Auto) 9 0-12 % Eosinophils (%) (Auto) 0 0-10 % Basophils (%) (Auto) 1 0-10 % Neutrophils # (Auto) 9.4 H 1.8-7.8 X 10^3 Lymphocytes # (Auto) 0.8 L 1.0-4.0 X 10^3 Monocytes # (Auto) 1.0 0.0-1.0 X 10^3 Eosinophils # (Auto) 0.0 0.0-0.3 10^3/uL Basophils # (Auto) 0.1 0.0-0.1 10^3/uL Neutrophils % (Manual) 90 % Lymphocytes % (Manual) 4 % Monocytes % (Manual) 5 % Eosinophils % (Manual) 0 % Basophils % (Manual) 1 % Band Neutrophils 0 % Hypochromasia MODERATE Poikilocytosis SLIGHT Anisocytosis SLIGHT Microcytosis SLIGHT Spherocytes SLIGHT Sodium Level 135 135-145 MMOL/L Potassium Level 4.2 3.6-5.0 MMOL/L Chloride Level 103 98-107 MMOL/L Carbon Dioxide Level 22 21-32 MMOL/L Anion Gap 10 5-14 MMOL/L Blood Urea Nitrogen 16 7-18 MG/DL Creatinine 0.84 0.60-1.30 MG/DL Estimat Glomerular Filtration Rate > 60 BUN/Creatinine Ratio 19 Glucose Level 105 70-105 MG/DL Calcium Level 9.0 8.5-10.1 MG/DL Corrected Calcium 9.6 8.5-10.1 MG/DL Magnesium Level 1.8 1.8-2.4 MG/DL Total Bilirubin 0.4 0.1-1.0 MG/DL Aspartate Amino Transf (AST/SGOT) 12 5-34 U/L Alanine Aminotransferase (ALT/SGPT) 15 0-55 U/L Alkaline Phosphatase 71 40-136 U/L C-Reactive Protein High Sensitivity 9.60 H 0.00-0.50 MG/DL Total Protein 7.1 6.4-8.2 GM/DL Albumin 3.3 3.2-4.5 GM/DL Urine Color YELLOW Urine Clarity CLEAR Urine pH 6.5 5-9 Urine Specific Bruning 1.015 L 1.016-1.022 Urine Protein 2+ H NEGATIVE Urine Glucose (UA) NEGATIVE NEGATIVE Urine Ketones NEGATIVE NEGATIVE Urine Nitrite NEGATIVE NEGATIVE Urine Bilirubin NEGATIVE NEGATIVE Urine Urobilinogen NORMAL NORMAL MG/DL Urine Leukocyte Esterase NEGATIVE NEGATIVE Urine RBC (Auto) NEGATIVE NEGATIVE Urine RBC NONE /HPF Urine WBC RARE /HPF Urine Crystals NONE /LPF Urine Bacteria NEGATIVE /HPF Urine Casts NONE /LPF Urine Mucus SMALL H /LPF Urine Other FEW SPERM H /HPF Urine Culture Indicated NO My Orders Orders - BERNIE RIVERA MD Cbc With Automated Diff (01/04/18 18:23) Comprehensive Metabolic Panel (01/04/18 18:23) Hs C Reactive Protein (01/04/18 18:23) Magnesium (01/04/18 18:23) Ua Culture If Indicated (01/04/18 18:23) Chest Pa/Lat (2 View) (01/04/18 18:23) Abdomen, Flat & Upright/Decub (01/04/18 18:23) Implanted Port: Ok To Use (01/04/18 18:23) Saline Lock/Iv-Start (01/04/18 18:25) Ns Iv 1000 Ml (Sodium Chloride 0.9%) (01/04/18 18:25) Manual Differential (01/04/18 18:45) Lactated Ringers (Lr 1000 Ml Iv Solution (01/04/18 19:46) Morphine Injection (Morphine Injection (01/04/18 20:00) Ketorolac Injection (Toradol Injection) (01/04/18 20:00) Medications Given in ED Current Medications Medications Dose Ordered Sig/Layla Route Start Time Stop Time Status Last Admin Dose Admin Ketorolac Tromethamine 15 mg ONCE ONCE IVP 01/04/18 20:00 01/04/18 20:01 DC 01/04/18 20:06 15 MG Lactated Ringer's 1,000 ml @ 0 mls/hr Q0M ONCE IV 01/04/18 19:46 01/04/18 19:50 DC 01/04/18 20:08 999 MLS/HR Sodium Chloride 1,000 ml @ 0 mls/hr Q0M ONCE IV 01/04/18 18:25 01/04/18 18:26 DC 01/04/18 18:54 0 MLS/HR Vital Signs/I&O 01/04/18 01/04/18 17:50 21:20 Temp 97.2 97.2 Pulse 73 73 Resp 18 18 B/P (MAP) 134/72 (92) 134/72 (92) Pulse Ox 95 95 O2 Delivery Room Air 01/05/18 00:00 Intake Total 1000 ml Balance 1000 ml Blood Pressure Mean: 92 Progress Progress Note : Progress Note Basic labs were performed. Chest x-ray and UA were added to assess for possible sources of infection. Workup was relatively unremarkable except for moderate stool in the colon. Toradol was given for pain. Patient received IV hydration and was dismissed home. I did discuss with Dr. Kendrick who advised IV hydration and permitted use of the new port. Diagnostic Imaging Diagonstic Imaging: Xray Plain Films/CT/US/NM/MRI: chest Comments Chest x-ray viewed by me and report reviewed. See report below: NAME: DAVID TRAYLOR [facility] REC#: [id number] PT STATUS: REG ER : 1950 PHYSICIAN: BERNIE RIVERA MD ADMIT DATE: 01/04/18/ER Signed Date of Exam: 01/04/18 CHEST PA/LAT (2 VIEW) INDICATION: Port placement. History of stomach and lung cancer. COMPARISON: Chest radiograph of 12/10/2017. FINDINGS: A large mass within the left lower lobe is unchanged. No new pulmonary mass or consolidation. No pleural effusion or pneumothorax. Heart is normal in size. Left subclavian Port-A-Cath has tip terminating in the upper SVC. IMPRESSION: 1. Left subclavian Port-A-Cath has tip in the upper SVC. No pneumothorax. 2. Stable left lower lobe pulmonary mass. Dictated by: Dictated on workstation # [id number] Dict: 01/04/181925 Trans: 01/04/181999 Interpreted by: LEORA MARRERO MD Electronically signed by: LEORA MARRERO MD 01/04/181999 Diagonstic Imaging: Xray Plain Films/CT/US/NM/MRI: abdomen Comments NAME: DAVID TRAYLOR [facility] REC#: [id number] PT STATUS: REG ER : 1950 PHYSICIAN: BERNIE RIVERA MD ADMIT DATE: 01/04/18/ER Signed Date of Exam: 01/04/18 ABDOMEN, FLAT & UPRIGHT/DECUB INDICATION: Nausea and constipation. COMPARISON: Chest radiograph performed concurrently. FINDINGS: Nonobstructive bowel gas pattern. There is a moderate amount of colonic stool present. No evidence of free intraperitoneal air. Partially imaged left lung mass. IMPRESSION: 1. Nonobstructive bowel gas pattern. 2. Moderate volume of colonic stool. Dictated by: Dictated on workstation # [id number] Dict: 01/04/181927 Trans: 01/04/181999 Interpreted by: LEORA MARRERO MD Electronically signed by: LEORA MARRERO MD 01/04/181999 Departure Impression Primary Impression: Constipation Qualified Codes: K59.00 - Constipation, unspecified Additional Impressions: Abdominal pain Qualified Codes: R10.11 - Right upper quadrant pain Abdominal mass Qualified Codes: R19.01 - Right upper quadrant abdominal swelling, mass and lump Disposition: 01 HOME, SELF-CARE Condition: Improved Departure-Patient Inst. Decision time for Depature: 19:53 Referrals: MURRAY CABALLERO MD (PCP/Family) Primary Care Physician Patient Instructions: Constipation, Adult (DC) Add. Discharge Instructions: Continue to use your pain medication as prescribed. Eat a diet high in fiber with plenty of fruits, vegetables, and whole grains. Drink plenty of clear liquids. You may increase your MiraLAX (polyethylene glycol) up to 3 or 4 doses per day as needed. Fill the cap to the fill line and mixed with 8-12 ounces of liquid. Follow-up with your primary care provider or Dr. Kendrick in the near future. Return to the emergency room as necessary if symptoms worsen. All discharge instructions reviewed with patient and/or family. Voiced understanding. BERNIE RIVERA MD Jan 04, 2018 19:54
[2018-01-04] MEDS ORDERED: morphine INJ 10 MG/ML 1ML (SYR OR VIAL) IVP ONE (20:00)
[2018-01-04] MEDS ORDERED: KETOROLAC 30 MG/ML VIAL IVP ONE (20:00)
[2018-01-04 21:20] VITALS: BP 134/72
== END 2018-01-04 21:34 | disposition home or self-care (01) ==
LOC: EDUNIT# 17:40 → ER 17:42
DX: K59.00 Constipation, unspecified (principal); R19.01 Right upper quadrant abdominal swelling, mass and lump; F12.10 Cannabis abuse, uncomplicated; Z85.118 Personal history of other malignant neoplasm of bronchus and lung; Z85.028 Personal history of other malignant neoplasm of stomach; Z87.19 Personal history of other diseases of the digestive system; Z88.5 Allergy status to narcotic agent; Z80.8 Family history of malignant neoplasm of other organs or systems; Z92.21 Personal history of antineoplastic chemotherapy; Z87.891 Personal history of nicotine dependence
CPT/HCPCS: 36415; 71046; 74019; 80053; 81000; 83735; 85007; 85027; 86141

== ENCOUNTER 2018-03-04 13:01 | Outpatient (RCR) | payer MEDICAID, MEDICARE ==
[2018-01-21 13:04] LABS: BASOPHILS # (AUTO) 0.1 10^3/uL (0.0-0.1); BASOPHILS % (AUTO) 1 % (0-10); EOSINOPHILS # (AUTO) 0.1 10^3/uL (0.0-0.3); EOSINOPHILS % (AUTO) 1 % (0-10); HEMATOCRIT 32 % (40-54); LYMPHOCYTES # (AUTO) 1.5 X 10^3 (1.0-4.0); LYMPHOCYTES % (AUTO) 14 % (12-44); MEAN CORPUSCULAR HEMOGLOBIN 24 PG (25-34); MEAN CORPUSCULAR HGB CONC 31 G/DL (32-36); MEAN CORPUSCULAR VOLUME 79 FL (80-99); MEAN PLATELET VOLUME 9.2 FL (7.4-10.4); MONOCYTES # (AUTO) 1.6 X 10^3 (0.0-1.0); MONOCYTES % (AUTO) 16 % (0-12); NEUTROPHILS % (AUTO) 68 % (42-75); PLATELET COUNT 459 10^3/uL (130-400); RED BLOOD COUNT 4.09 10^6/uL (4.35-5.85); RED CELL DISTRIBUTION WIDTH 18.4 % (10.0-14.5); WHITE BLOOD COUNT 10.2 10^3/uL (4.3-11.0)
[2018-01-21 13:25] LABS: BUN/CREATININE RATIO 14; CALCIUM 9.4 MG/DL (8.5-10.1); CARBON DIOXIDE 22 MMOL/L (21-32); CHLORIDE 103 MMOL/L (98-107); CREATININE SERUM 0.95 MG/DL (0.60-1.30); GFR ESTIMATED > 60; GLUCOSE 120 MG/DL (70-105); POTASSIUM 4.5 MMOL/L (3.6-5.0); SODIUM 135 MMOL/L (135-145)
[2018-01-28 10:21] LABS: BASOPHILS % (AUTO) 0 % (0-10); EOSINOPHILS % (AUTO) 0 % (0-10); HEMATOCRIT 35 % (40-54); HEMOGLOBIN 10.9 G/DL (13.3-17.7); LYMPHOCYTES # (AUTO) 0.7 X 10^3 (1.0-4.0); LYMPHOCYTES % (AUTO) 5 % (12-44); MEAN CORPUSCULAR HEMOGLOBIN 25 PG (25-34); MEAN CORPUSCULAR HGB CONC 31 G/DL (32-36); MEAN CORPUSCULAR VOLUME 79 FL (80-99); MEAN PLATELET VOLUME 9.1 FL (7.4-10.4); MONOCYTES # (AUTO) 0.1 X 10^3 (0.0-1.0); MONOCYTES % (AUTO) 0 % (0-12); NEUTROPHILS # (AUTO) 14.7 X 10^3 (1.8-7.8); NEUTROPHILS % (AUTO) 95 % (42-75); PLATELET COUNT 554 10^3/uL (130-400); RED BLOOD COUNT 4.37 10^6/uL (4.35-5.85); RED CELL DISTRIBUTION WIDTH 19.1 % (10.0-14.5); WHITE BLOOD COUNT 15.4 10^3/uL (4.3-11.0)
[2018-01-28 10:42] LABS: ALANINE AMINOTRANSFERASE 18 U/L (0-55); ALBUMIN 3.9 GM/DL (3.2-4.5); ALKALINE PHOSPHATASE 87 U/L (40-136); BILIRUBIN,TOTAL 0.5 MG/DL (0.1-1.0); BUN/CREATININE RATIO 15; CALCIUM 9.9 MG/DL (8.5-10.1); CARBON DIOXIDE 17 MMOL/L (21-32); CHLORIDE 100 MMOL/L (98-107); CREATININE SERUM 1.14 MG/DL (0.60-1.30); GFR ESTIMATED > 60; GLUCOSE 312 MG/DL (70-105); POTASSIUM 4.4 MMOL/L (3.6-5.0); SODIUM 133 MMOL/L (135-145); TOTAL PROTEIN 8.1 GM/DL (6.4-8.2)
[2018-02-11 11:04] LABS: BASOPHILS # (AUTO) 0.1 10^3/uL (0.0-0.1); BASOPHILS % (AUTO) 1 % (0-10); EOSINOPHILS # (AUTO) 0.1 10^3/uL (0.0-0.3); EOSINOPHILS % (AUTO) 0 % (0-10); HEMATOCRIT 36 % (40-54); HEMOGLOBIN 11.1 G/DL (13.3-17.7); LYMPHOCYTES # (AUTO) 1.3 X 10^3 (1.0-4.0); LYMPHOCYTES % (AUTO) 8 % (12-44); MEAN CORPUSCULAR HEMOGLOBIN 25 PG (25-34); MEAN CORPUSCULAR HGB CONC 31 G/DL (32-36); MEAN CORPUSCULAR VOLUME 81 FL (80-99); MEAN PLATELET VOLUME 10.1 FL (7.4-10.4); MONOCYTES # (AUTO) 1.3 X 10^3 (0.0-1.0); MONOCYTES % (AUTO) 8 % (0-12); NEUTROPHILS # (AUTO) 13.4 X 10^3 (1.8-7.8); NEUTROPHILS % (AUTO) 83 % (42-75); PLATELET COUNT 455 10^3/uL (130-400); RED BLOOD COUNT 4.41 10^6/uL (4.35-5.85); RED CELL DISTRIBUTION WIDTH 17.1 % (10.0-14.5); WHITE BLOOD COUNT 16.1 10^3/uL (4.3-11.0)
[2018-02-11 11:20] LABS: ALANINE AMINOTRANSFERASE 19 U/L (0-55); ALBUMIN 3.8 GM/DL (3.2-4.5); ALKALINE PHOSPHATASE 101 U/L (40-136); BILIRUBIN,TOTAL 0.6 MG/DL (0.1-1.0); BUN/CREATININE RATIO 13; CALCIUM 9.7 MG/DL (8.5-10.1); CARBON DIOXIDE 23 MMOL/L (21-32); CHLORIDE 99 MMOL/L (98-107); CREATININE SERUM 0.87 MG/DL (0.60-1.30); GFR ESTIMATED > 60; GLUCOSE 147 MG/DL (70-105); POTASSIUM 3.9 MMOL/L (3.6-5.0); SODIUM 134 MMOL/L (135-145); TOTAL PROTEIN 7.9 GM/DL (6.4-8.2)
[2018-02-11 11:41] LABS: ANISOCYTOSIS MODERATE; BAND NEUTROPHILS 0 %; BASOPHILS % (MANUAL) 0 %; EOSINOPHILS % (MANUAL) 1 %; LYMPHOCYTES % (MANUAL) 4 %; MONOCYTES % (MANUAL) 8 %; NEUTROPHILS % (MANUAL) 87 %
[2018-02-17 11:21] LABS: BASOPHILS # (AUTO) 0.1 10^3/uL (0.0-0.1); BASOPHILS % (AUTO) 1 % (0-10); EOSINOPHILS # (AUTO) 0.1 10^3/uL (0.0-0.3); EOSINOPHILS % (AUTO) 1 % (0-10); HEMATOCRIT 36 % (40-54); HEMOGLOBIN 11.2 G/DL (13.3-17.7); LYMPHOCYTES # (AUTO) 0.9 X 10^3 (1.0-4.0); LYMPHOCYTES % (AUTO) 12 % (12-44); MEAN CORPUSCULAR HEMOGLOBIN 25 PG (25-34); MEAN CORPUSCULAR HGB CONC 31 G/DL (32-36); MEAN CORPUSCULAR VOLUME 81 FL (80-99); MEAN PLATELET VOLUME 9.8 FL (7.4-10.4); MONOCYTES # (AUTO) 0.4 X 10^3 (0.0-1.0); MONOCYTES % (AUTO) 5 % (0-12); NEUTROPHILS % (AUTO) 81 % (42-75); PLATELET COUNT 465 10^3/uL (130-400); RED BLOOD COUNT 4.49 10^6/uL (4.35-5.85); RED CELL DISTRIBUTION WIDTH 16.7 % (10.0-14.5); WHITE BLOOD COUNT 7.4 10^3/uL (4.3-11.0)
[2018-02-17 11:37] LABS: BUN/CREATININE RATIO 16; CALCIUM 9.8 MG/DL (8.5-10.1); CARBON DIOXIDE 24 MMOL/L (21-32); CHLORIDE 99 MMOL/L (98-107); CREATININE SERUM 0.87 MG/DL (0.60-1.30); GFR ESTIMATED > 60; GLUCOSE 143 MG/DL (70-105); POTASSIUM 4.3 MMOL/L (3.6-5.0); SODIUM 134 MMOL/L (135-145)
[2018-02-24 13:19] LABS: BASOPHILS % (AUTO) 1 % (0-10); EOSINOPHILS # (AUTO) 0.1 10^3/uL (0.0-0.3); EOSINOPHILS % (AUTO) 1 % (0-10); HEMATOCRIT 36 % (40-54); LYMPHOCYTES # (AUTO) 1.6 X 10^3 (1.0-4.0); LYMPHOCYTES % (AUTO) 24 % (12-44); MEAN CORPUSCULAR HEMOGLOBIN 25 PG (25-34); MEAN CORPUSCULAR HGB CONC 31 G/DL (32-36); MEAN CORPUSCULAR VOLUME 82 FL (80-99); MEAN PLATELET VOLUME 9.5 FL (7.4-10.4); MONOCYTES # (AUTO) 1.2 X 10^3 (0.0-1.0); MONOCYTES % (AUTO) 18 % (0-12); NEUTROPHILS # (AUTO) 3.8 X 10^3 (1.8-7.8); NEUTROPHILS % (AUTO) 57 % (42-75); PLATELET COUNT 450 10^3/uL (130-400); RED BLOOD COUNT 4.35 10^6/uL (4.35-5.85); RED CELL DISTRIBUTION WIDTH 17.8 % (10.0-14.5); WHITE BLOOD COUNT 6.6 10^3/uL (4.3-11.0)
[2018-02-24 13:36] LABS: BUN/CREATININE RATIO 14; CALCIUM 9.9 MG/DL (8.5-10.1); CARBON DIOXIDE 24 MMOL/L (21-32); CHLORIDE 103 MMOL/L (98-107); CREATININE SERUM 0.79 MG/DL (0.60-1.30); GFR ESTIMATED > 60; GLUCOSE 68 MG/DL (70-105); POTASSIUM 4.1 MMOL/L (3.6-5.0); SODIUM 138 MMOL/L (135-145)
[~2018-03-04] VITALS: Ht 175.3 cm; Wt 51.7 kg
[~2018-03-04 13:01] MED LIST changes: +CARBOPLATIN 400 MG in D5W 50 ML IV(CANCER CTR) 50 ML IV SCH; +DEXAMETHASONE IV SCH; +FAMOTIDINE 20MG/2ML IV (CANCER CTR) IV SCH; +FOSAPREPITANT DIMEGLUMINE 150 MG in NS (IVPB) CANCER CENTER ONLY 150 ML IV SCH; +NORMAL SALINE IV SCH; +NS IV 1000 ML (CANCER CTR) IV SCH; +NS IV 500 ML (CANCER CENTER) 500 ML ONE; +PACLITAXEL IV SCH; +PALONOSETRON HCL 0.25 MG, DEXAMETHASONE INJECTION 10 MG in NS (IVPB) CANCER CENTER 50 ML IV SCH; +PALONOSETRON HCL IV SCH; +[UNRECOGNIZED DRUG - OTHER] IV SCH; +diphenhydrAMINE 25 MG TAB (BENADRYL) CANCER CENTER PO ONE; +diphenhydrAMINE 50 MG/ML INJ (CANCER CENTER) ONE
[2018-03-04 13:25] LABS: BASOPHILS # (AUTO) 0.1 10^3/uL (0.0-0.1); BASOPHILS % (AUTO) 1 % (0-10); EOSINOPHILS % (AUTO) 0 % (0-10); HEMATOCRIT 40 % (40-54); HEMOGLOBIN 12.7 G/DL (13.3-17.7); LYMPHOCYTES # (AUTO) 1.7 X 10^3 (1.0-4.0); LYMPHOCYTES % (AUTO) 12 % (12-44); MEAN CORPUSCULAR HEMOGLOBIN 26 PG (25-34); MEAN CORPUSCULAR HGB CONC 31 G/DL (32-36); MEAN CORPUSCULAR VOLUME 82 FL (80-99); MEAN PLATELET VOLUME 9.1 FL (7.4-10.4); MONOCYTES # (AUTO) 1.3 X 10^3 (0.0-1.0); MONOCYTES % (AUTO) 9 % (0-12); NEUTROPHILS # (AUTO) 10.5 X 10^3 (1.8-7.8); NEUTROPHILS % (AUTO) 78 % (42-75); PLATELET COUNT 396 10^3/uL (130-400); RED BLOOD COUNT 4.94 10^6/uL (4.35-5.85); RED CELL DISTRIBUTION WIDTH 18.4 % (10.0-14.5); WHITE BLOOD COUNT 13.6 10^3/uL (4.3-11.0)
[2018-03-04 13:39] LABS: ALANINE AMINOTRANSFERASE 18 U/L (0-55); ALBUMIN 3.9 GM/DL (3.2-4.5); ALKALINE PHOSPHATASE 100 U/L (40-136); BILIRUBIN,TOTAL 0.4 MG/DL (0.1-1.0); BUN/CREATININE RATIO 13; CALCIUM 10.2 MG/DL (8.5-10.1); CARBON DIOXIDE 24 MMOL/L (21-32); CHLORIDE 102 MMOL/L (98-107); CREATININE SERUM 0.84 MG/DL (0.60-1.30); GFR ESTIMATED > 60; GLUCOSE 103 MG/DL (70-105); POTASSIUM 4.1 MMOL/L (3.6-5.0); SODIUM 137 MMOL/L (135-145); TOTAL PROTEIN 8.4 GM/DL (6.4-8.2)
[2018-03-11] MEDS ORDERED: OXYC20TA54 PO (13:24)
[2018-03-11] MEDS ORDERED: POLY17PO6 PO (13:24)
[2018-03-11] MEDS ORDERED: ONDA8TAB6 PO (13:24)
[2018-03-11] MEDS ORDERED: PANT20TA2 PO (13:25)
[2018-03-11] MEDS ORDERED: AMOX500C2 PO (13:25)
[2018-03-18] MEDS ORDERED: SENN-20 PO (11:57)
[2018-03-18] MEDS ORDERED: OXYC20TA54 PO (11:57)
[2018-03-18] MEDS ORDERED: LORA2ORA PO (11:57)
== END 2018-03-30 | disposition home or self-care (01) ==
LOC: ONC 13:01
PROVIDERS: ATTEND Internal Medicine Hematology & Oncology
DX: Z51.11 Encounter for antineoplastic chemotherapy (principal); C16.1 Malignant neoplasm of fundus of stomach; C34.92 Malignant neoplasm of unspecified part of left bronchus or lung; F17.210 Nicotine dependence, cigarettes, uncomplicated; Z80.8 Family history of malignant neoplasm of other organs or systems
CPT/HCPCS: 36415; 36591; 80048; 80053; 85007; 85025; 85027; 96367; 96375; 96413; 96415; 96417; 99213

== ENCOUNTER 2018-03-11 08:45 | Inpatient (IN) | payer MEDICARE, MEDICAID ==
[2018-03-11] VITALS (13 sets, daily range): BP systolic 132–162; BP diastolic 91–138
[~2018-03-11] VITALS: Ht 175.3 cm; Wt 57.6 kg
[~2018-03-11 08:45] MED LIST changes: -CARBOPLATIN 400 MG in D5W 50 ML IV(CANCER CTR) 50 ML IV SCH; -DEXAMETHASONE IV SCH; -FAMOTIDINE 20MG/2ML IV (CANCER CTR) IV SCH; -FOSAPREPITANT DIMEGLUMINE 150 MG in NS (IVPB) CANCER CENTER ONLY 150 ML IV SCH; -NORMAL SALINE IV SCH; -NS IV 1000 ML (CANCER CTR) IV SCH; -NS IV 500 ML (CANCER CENTER) 500 ML ONE; -PACLITAXEL IV SCH; -PALONOSETRON HCL 0.25 MG, DEXAMETHASONE INJECTION 10 MG in NS (IVPB) CANCER CENTER 50 ML IV SCH; -PALONOSETRON HCL IV SCH; -[UNRECOGNIZED DRUG - OTHER] IV SCH; -diphenhydrAMINE 25 MG TAB (BENADRYL) CANCER CENTER PO ONE; -diphenhydrAMINE 50 MG/ML INJ (CANCER CENTER) ONE
[2018-03-11] MEDS ORDERED: NS IV 1000 ML 1,000 ML IV ONE ×2 (08:59→10:07)
[2018-03-11 09:15] LABS: BASOPHILS % (AUTO) 0 % (0-10); EOSINOPHILS % (AUTO) 0 % (0-10); HEMATOCRIT 38 % (40-54); HEMOGLOBIN 12.2 G/DL (13.3-17.7); LYMPHOCYTES # (AUTO) 0.8 X 10^3 (1.0-4.0); LYMPHOCYTES % (AUTO) 5 % (12-44); MEAN CORPUSCULAR HEMOGLOBIN 26 PG (25-34); MEAN CORPUSCULAR HGB CONC 32 G/DL (32-36); MEAN CORPUSCULAR VOLUME 81 FL (80-99); MEAN PLATELET VOLUME 10.1 FL (7.4-10.4); MONOCYTES # (AUTO) 0.1 X 10^3 (0.0-1.0); MONOCYTES % (AUTO) 1 % (0-12); NEUTROPHILS # (AUTO) 14.5 X 10^3 (1.8-7.8); NEUTROPHILS % (AUTO) 94 % (42-75); PLATELET COUNT 323 10^3/uL (130-400); RED BLOOD COUNT 4.72 10^6/uL (4.35-5.85); RED CELL DISTRIBUTION WIDTH 17.3 % (10.0-14.5); WHITE BLOOD COUNT 15.4 10^3/uL (4.3-11.0)
[2018-03-11 09:26] LABS: PROTHROMBIN TIME PATIENT 13.5 SEC (12.2-14.7)
[2018-03-11 09:34] LABS: ALANINE AMINOTRANSFERASE 17 U/L (0-55); ALBUMIN 3.9 GM/DL (3.2-4.5); ALKALINE PHOSPHATASE 92 U/L (40-136); BILIRUBIN,TOTAL 0.5 MG/DL (0.1-1.0); BUN/CREATININE RATIO 19; CALCIUM 10.6 MG/DL (8.5-10.1); CARBON DIOXIDE 19 MMOL/L (21-32); CHLORIDE 101 MMOL/L (98-107); CREATININE SERUM 0.86 MG/DL (0.60-1.30); GFR ESTIMATED > 60; GLUCOSE 162 MG/DL (70-105); POTASSIUM 4.2 MMOL/L (3.6-5.0); SODIUM 136 MMOL/L (135-145); TOTAL PROTEIN 8.3 GM/DL (6.4-8.2)
[2018-03-11 09:47] LABS: ANISOCYTOSIS SLIGHT; BAND NEUTROPHILS 3 %; BASOPHILS % (MANUAL) 0 %; EOSINOPHILS % (MANUAL) 0 %; LYMPHOCYTES % (MANUAL) 4 %; MONOCYTES % (MANUAL) 1 %; NEUTROPHILS % (MANUAL) 92 %
--- NOTE | 2018-03-11 10:07 | ED General ---
General Chief Complaint: Respiratory Problems Stated Complaint: SOB Nursing Triage Note: TO ED PER W/C REPORTS WAS TO HAVE CHEMO TODAY ,BUT HAS BEEN SOA SINCE LAST NIGHT. WORSE ON WALKING. PLACED ON OXY MASK AT 10L DUE TO SAO2 64% ROOM AIR. WARM BLANKETS PLACED ON PATIENT ON ADMIT DUE TO TEMP 94.8 Nursing Sepsis Screen: No Definite Risk Source of Information: Patient Exam Limitations: No Limitations History of Present Illness Date Seen by Provider: Mar 11, 2018 Time Seen by Provider: 08:55 Initial Comments Here with acute shortness of air although it has been getting worse over the last week. His oncologist started him on antibiotic last week for possible pneumonia. He completed that yesterday. Overnight he got much worse with respect to breathing. Arrives today with a temp of 94.8 and has fairly significant shortness of breath. Does have known long and stomach cancer and currently is in chemotherapy. Take his steroid orally last night for pre- chemotherapy dosing. This morning he was not feeling well and presented to the emergency department. Initial O2 sat 64 percent on room air. Does admit to fairly significant weakness. Timing/Duration: 1 Week, Getting Worse Severity: Moderate, Severe Modifying Factors: worse with Movement; improves with Rest Associated Systoms: Chest Pain (chronic cancer pain), Cough; No Fever/Chills, No Nausea/Vomiting; Shortness of Air, Weakness Allergies and Home Medications Allergies Coded Allergies: codeine (Verified Allergy, Unknown, 09/28/17) Home Medications Calcium Carbonate 200 Mg Tab.chew, 400 MG PO Q4H PRN for HEARTBURN, (Reported) Omeprazole 40 Mg Capsule.dr, 40 MG PO DAILY Prescribed by: SANDRO GRAY on 10/03/17 1115 Ondansetron 4 Mg Tab.rapdis, 4 MG SL Q4H PRN for NAUSEA/VOMITING-1ST LINE Prescribed by: BERNIE SALAS on 12/18/17434 Oxycodone HCl 10 Mg Tab.er.12h, 10 MG PO BID Prescribed by: BERNIE SALAS on 12/18/17434 Polyethylene Glycol 3350 119 Gm Powder, 17 GM PO BID PRN for CONSTIPATION-1ST LINE Fill cap to line. Dissolve in 8-12 ounces of liquid. Prescribed by: BERNIE SALAS on 12/18/17436 Patient Home Medication List Home Medication List Reviewed: Yes Review of Systems Review of Systems Constitutional: see HPI, chills; No diaphoresis, No fever; weakness EENTM: No nose congestion, No throat pain Respiratory: cough, dyspnea on exertion, short of breath, wheezing Cardiovascular: chest pain (left-sided during the cancer); No palpitations Gastrointestinal: abdominal pain (chronic abdominal pain for the cancer); No nausea, No vomiting Genitourinary: no symptoms reported Musculoskeletal: no symptoms reported Skin: no symptoms reported All Other Systems Reviewed Negative Unless Noted: Yes Past Pwfkfap-Jyxgzv-Qcmgln Hx Past Med/Social Hx: Reviewed Nursing Past Med/Soc Hx Patient Social History Alcohol Use: Denies Use Number of Drinks Today: AA Alcohol Beverage of Choice: Beer Recreational Drug Use: No Drug of Choice: marijuana Smoking Status: Former Smoker Type Used: Cigarettes Former Smoker, Quit: Oct 28, 2017 2nd Hand Smoke Exposure: No Recent Foreign Travel: No Contact w/Someone Who Travel: No Recent Infectious Disease Expo: No Recent Hopitalizations: No Immunizations Up To Date Tetanus Booster (TDap): Unknown Seasonal Allergies Seasonal Allergies: No Past Medical History Surgeries: Yes (stomach ulcer repair, LT SIDE PORT PLACEMENT) Respiratory: No Cardiac: No Neurological: No Reproductive Disorders: No Genitourinary: No Gastrointestinal: Yes Gastrointestinal Bleed, Ulcer Musculoskeletal: No Endocrine: No HEENT: No Cancer: Yes Lung, Stomach Did You Recieve Any Treatments: Yes What Type of Treatment Did You: Chemotherapy Psychosocial: No Integumentary: No Blood Disorders: Yes Adverse Reaction/Blood Tranf: No Family Medical History Reviewed Nursing Family Hx Cancer 19 MOTHER G8 SISTER (bone cancer) FH: cancer Cancer Physical Exam-Suspected Sepsis Physical Exam Vital Signs Vital Signs - First Documented 03/11/18 08:47 Temp 94.8 Pulse 117 Resp 22 B/P (MAP) 116/83 (94) Pulse Ox 69 O2 Delivery Room Air O2 Flow Rate 10.00 Capillary Refill : Less Than 3 Seconds Blood Pressure Mean: 110 Height, Weight, BMI Height: 5'9.00" Weight: 122lbs. 0.0oz. 55.254890it; 17.4 BMI Method:Stated General Appearance: Cachetic, Mild Distress, Thin HEENT: PERRL/EOMI, Pharynx Normal Neck: Non Tender, Supple Respiratory: No Accessory Muscle Use, Decreased Breath Sounds, Wheezing Cardiovascular: Regular Rate, Rhythm, No Murmur Gastrointestinal: Non Tender, Soft Back: Normal Inspection, No CVA Tenderness, No Vertebral Tenderness Extremity: Normal Range of Motion, Non Tender Neurologic/Psychiatric: Alert, Oriented x3 Skin: normal color, warm/dry Focused Exam Lactate Level 03/11/18 09:03: Lactic Acid Level 3.16*H 03/11/18 11:03: Lactic Acid Level Laboratory Tests Test 03/11/18 09:03 03/11/18 11:03 Lactic Acid Level 3.16 MMOL/L (0.50-2.00) *H Progress/Results/Core Measures Suspected Sepsis Recent Fever Within 48 Hours: No Infection Criteria Present: None New/Unexplained Altered Menta: No Sepsis Screen: No Definite Risk SIRS Temperature:98.0 Pulse: 100 Respiratory Rate: 18 Laboratory Tests 03/11/18 09:03: White Blood Count 15.4H Blood Pressure 142 /94 Mean: 110 03/11/18 09:03: Lactic Acid Level 3.16*H 03/11/18 11:03: Laboratory Tests 03/11/18 09:03: Creatinine 0.86, INR Comment 1.0, Platelet Count 323, Total Bilirubin 0.5 Results/Orders Lab Results Laboratory Tests Test 03/11/18 09:03 03/11/18 11:03 Range/Units White Blood Count 15.4 H 4.3-11.0 10^3/uL Red Blood Count 4.72 4.35-5.85 10^6/uL Hemoglobin 12.2 L 13.3-17.7 G/DL Hematocrit 38 L 40-54 % Mean Corpuscular Volume 81 80-99 FL Mean Corpuscular Hemoglobin 26 25-34 PG Mean Corpuscular Hemoglobin Concent 32 32-36 G/DL Red Cell Distribution Width 17.3 H 10.0-14.5 % Platelet Count 323 130-400 10^3/uL Mean Platelet Volume 10.1 7.4-10.4 FL Neutrophils (%) (Auto) 94 H 42-75 % Lymphocytes (%) (Auto) 5 L 12-44 % Monocytes (%) (Auto) 1 0-12 % Eosinophils (%) (Auto) 0 0-10 % Basophils (%) (Auto) 0 0-10 % Neutrophils # (Auto) 14.5 H 1.8-7.8 X 10^3 Lymphocytes # (Auto) 0.8 L 1.0-4.0 X 10^3 Monocytes # (Auto) 0.1 0.0-1.0 X 10^3 Eosinophils # (Auto) 0.0 0.0-0.3 10^3/uL Basophils # (Auto) 0.0 0.0-0.1 10^3/uL Neutrophils % (Manual) 92 % Lymphocytes % (Manual) 4 % Monocytes % (Manual) 1 % Eosinophils % (Manual) 0 % Basophils % (Manual) 0 % Band Neutrophils 3 % Anisocytosis SLIGHT Prothrombin Time 13.5 12.2-14.7 SEC INR Comment 1.0 0.8-1.4 Activated Partial Thromboplast Time 31 24-35 SEC Sodium Level 136 135-145 MMOL/L Potassium Level 4.2 3.6-5.0 MMOL/L Chloride Level 101 98-107 MMOL/L Carbon Dioxide Level 19 L 21-32 MMOL/L Anion Gap 16 H 5-14 MMOL/L Blood Urea Nitrogen 16 7-18 MG/DL Creatinine 0.86 0.60-1.30 MG/DL Estimat Glomerular Filtration Rate > 60 BUN/Creatinine Ratio 19 Glucose Level 162 H 70-105 MG/DL Lactic Acid Level 3.16 *H 0.50-2.00 MMOL/L Calcium Level 10.6 H 8.5-10.1 MG/DL Corrected Calcium 10.7 H 8.5-10.1 MG/DL Total Bilirubin 0.5 0.1-1.0 MG/DL Aspartate Amino Transf (AST/SGOT) 12 5-34 U/L Alanine Aminotransferase (ALT/SGPT) 17 0-55 U/L Alkaline Phosphatase 92 40-136 U/L Total Protein 8.3 H 6.4-8.2 GM/DL Albumin 3.9 3.2-4.5 GM/DL My Orders Orders - VINEET CARRASCO MD Cbc With Automated Diff (03/11/18 08:59) Comprehensive Metabolic Panel (03/11/18 08:59) Blood Culture (03/11/18 08:59) Sputum Culture (03/11/18 08:59) Urinalysis (03/11/18 08:59) Urine Culture (03/11/18 08:59) Protime With Inr (03/11/18 08:59) Partial Thromboplastin Time (03/11/18 08:59) Chest 1 View, Ap/Pa Only (03/11/18 08:59) Saline Lock/Iv-Start (03/11/18 08:59) Vital Signs Adult Sepsis Patie Q15M (03/11/18 08:59) O2 (03/11/18 08:59) Remove Rings In Anticipation O (03/11/18 08:59) Lactic Acid Analyzer (03/11/18 08:59) Ns Iv 1000 Ml (Sodium Chloride 0.9%) (03/11/18 08:59) Manual Differential (03/11/18 09:03) Ns Iv 1000 Ml (Sodium Chloride 0.9%) (03/11/18 10:07) Piperacillin Sodium/Tazobactam (Zosyn Vi (03/11/18 11:15) Morphine Injection (Morphine Injection (03/11/18 11:08) Albuterol/Ipra Inhalation Soln (Duoneb I (03/11/18 11:45) Svn Small Volume Nebulizer (03/11/18 11:42) Medications Given in ED Current Medications Medications Dose Ordered Sig/Layla Route Start Time Stop Time Status Last Admin Dose Admin Piperacillin Sod/ Tazobactam Sod 4.5 gm/Sodium Chloride 100 ml @ 200 mls/hr ONCE ONCE IV 03/11/18 11:15 03/11/18 11:44 03/11/18 11:34 200 MLS/HR Sodium Chloride 1,000 ml @ 0 mls/hr Q0M ONCE IV 03/11/18 08:59 03/11/18 09:02 DC 03/11/18 09:13 1,000 MLS/HR Sodium Chloride 1,000 ml @ 0 mls/hr Q0M ONCE IV 03/11/18 10:07 03/11/18 10:08 DC 03/11/18 10:18 1,000 MLS/HR Vital Signs/I&O 03/11/18 03/11/18 03/11/18 08:47 08:47 09:56 Temp 94.8 98.0 Pulse 117 100 Resp 22 18 B/P (MAP) 116/83 (94) 142/94 (110) Pulse Ox 69 99 O2 Delivery Room Air OxyMask OxyMask O2 Flow Rate 10.00 10.00 Capillary Refill : Less Than 3 Seconds Blood Pressure Mean: 110 Progress Note : Progress Note Seen and evaluated. IV, labs, UA, chest x-ray, blood cultures and lactic acid ordered. Normal saline 1 L bolus. This was repeated 1. Total 2 L normal saline which exceeds 30 mL/kg. Patient does have history of lung cancer. Chest x-ray shows significant infiltrate on the left. 1104: I did discuss the case with Dr. Hill. She accepts patient for admission. Patient to be admitted to the ICU due to his status of cancer and the significant infiltrate. Zosyn 4.5 g IV ordered. We will go ahead and give duo neb as well. Blood pressures remained in the 140s systolic with O2 sat 100 percent on oxygen mask at 6 L. Heart rate has improved to 93. Overall doing better. Admit, inpatient status. Patient agrees with plan. Diagnostic Imaging Diagonstic Imaging: Xray Plain Films/CT/US/NM/MRI: chest Comments [facility], [place] NAME: DAVID TRAYLOR Simi [facility] REC#: [id number] PT STATUS: REG ER : 1950 PHYSICIAN: VINEET CARRASCO MD ADMIT DATE: 03/11/18/ER Draft Date of Exam:03/11/18 CHEST 1 VIEW, AP/PA ONLY INDICATION: Shortness of breath, immunosuppression. Portable chest 9:56 a.m. FINDINGS: There is a 2.5 cm pulmonary nodule in the right lower chest that is increased in size since 01/04/2018. There is a left perihilar infiltrate with elevation of the left hemidiaphragm. Left IJ Port-A-Cath tip projects over the SVC. IMPRESSION: The previously seen left lung mass is obscured by surrounding infiltrate suspicious for pneumonia. Pulmonary nodule in the right lung base is increased in size. Dictated on workstation # [id number] Dict: 03/11/18 1020 Trans: 03/11/18 1025 HIRAM [id number] Interpreted by: VINEET BOLAND MD Electronically signed by: Reviewed: Reviewed by Me Departure Communication (Admissions) Time/Spoke to Admitting Phy: 11:04 Impression Primary Impression: Pneumonia involving left lung Qualified Codes: J18.9 - Pneumonia, unspecified organism Additional Impressions: Lung cancer Qualified Codes: C34.82 - Malignant neoplasm of overlapping sites of left bronchus and lung Stomach cancer Qualified Codes: C16.9 - Malignant neoplasm of stomach, unspecified Disposition: 09 ADMITTED INPATIENT Condition: Stable Admissions Decision to Admit Reason: Admit from ER (General) Decision to Admit/Date: Mar 11, 2018 Time/Decision to Admit Time: 11:04 Departure-Patient Inst. Referrals: MURRAY CABALLERO MD (PCP/Family) Primary Care Physician VINEET CARRASCO MD Mar 11, 2018 10:07
--- NOTE | 2018-03-11 10:26 | Diagnostic Imaging Report ---
INDICATION: Shortness of breath, immunosuppression. Portable chest 9:56 a.m. FINDINGS: There is a 2.5 cm pulmonary nodule in the right lower chest that is increased in size since 01/04/2018. There is a left perihilar infiltrate with elevation of the left hemidiaphragm. Left IJ Port-A-Cath tip projects over the SVC. IMPRESSION: The previously seen left lung mass is obscured by surrounding infiltrate suspicious for pneumonia. Pulmonary nodule in the right lung base is increased in size. Dictated by: Dictated on workstation # [id number]
[2018-03-11] MEDS ORDERED: morphine INJ 10 MG/ML 1ML (SYR OR VIAL) IVP STA (11:08)
[2018-03-11] MEDS ORDERED: PIPERACILLIN SODIUM/TAZOBACTAM 4.5 GM in NS (IVPB) 100 ML IV ONE (11:15)
[2018-03-11] MEDS ORDERED: RT-ALBUTEROL/IPRATROPIUM 3 ML (DUONEB) VIAL ONE (11:41)
[2018-03-11] MEDS ORDERED: RT-ALBUTEROL/IPRATROPIUM 3 ML (DUONEB) VIAL INH ONE (11:45)
[2018-03-11] MEDS ORDERED: NS IV 1000 ML 1,000 ML IV SCH (12:37)
[2018-03-11] MEDS ORDERED: NS IV ONE (12:45)
[2018-03-11] MEDS ORDERED: POLY17PO6 PO (13:24)
[2018-03-11] MEDS ORDERED: OXYC20TA54 PO (13:24)
[2018-03-11] MEDS ORDERED: ONDA8TAB6 PO (13:24)
[2018-03-11] MEDS ORDERED: PANT20TA2 PO (13:25)
[2018-03-11] MEDS ORDERED: AMOX500C2 PO (13:25)
[2018-03-11] MEDS ORDERED: NS IV 1000 ML 1,000 ML IV PRN (13:30)
[2018-03-11] MEDS ORDERED: FLU QUADRIvalent (5+ YOA) 2018-2019 (AFLURIA) 0.5 ML IM ONE (13:30)
[2018-03-11] MEDS: NOREPINEPHRINE 4 MG in NS (IVPB) 250 ML IV SCH (15:19)
[2018-03-11] MEDS: NS IV 1000 ML 1,000 ML IV SCH ×2 (15:19→23:49)
[2018-03-11] MEDS: VANCOMYCIN 1 GM/NS 250 ML IVPB IV SCH ×2 (15:19)
[2018-03-11] MEDS ORDERED: CHLORASEPTIC SPRAY 177 ML LIQUID MC PRN (16:30)
[2018-03-11] MEDS: PIPERACILLIN/TAZO 4.5 GM/NS 100 ML IV SCH ×2 (17:16)
[2018-03-11] MEDS: morphine INJ 10 MG/ML 1ML (SYR OR VIAL) IV PRN ×3 (18:49→23:48)
[2018-03-11] MEDS: RT-ALBUTEROL/IPRATROPIUM 3 ML (DUONEB) VIAL INH SCH ×2 (19:04→22:12)
[2018-03-11] MEDS: inSUlin ASPART (NovoLOG) 1 UNIT/0.01 ML (CHARGE PER UNIT) SQ SCH (21:00)
[2018-03-12] VITALS (17 sets, daily range): BP systolic 104–147; BP diastolic 61–100
[2018-03-12] MEDS: PIPERACILLIN/TAZO 4.5 GM/NS 100 ML IV SCH ×6 (02:12→17:13)
[2018-03-12] MEDS: NOREPINEPHRINE 4 MG in NS (IVPB) 250 ML IV SCH ×2 (02:12→14:26)
[2018-03-12] MEDS: RT-ALBUTEROL/IPRATROPIUM 3 ML (DUONEB) VIAL INH SCH ×6 (02:23→21:26)
[2018-03-12] MEDS: ONDANSETRON 4 MG/2 ML (SDV) Z0FRAN IV PRN ×2 (03:51→09:01)
[2018-03-12 04:59] LABS: BASOPHILS % (AUTO) 0 % (0-10); EOSINOPHILS % (AUTO) 0 % (0-10); HEMATOCRIT 32 % (40-54); HEMOGLOBIN 10.3 G/DL (13.3-17.7); LYMPHOCYTES % (AUTO) 5 % (12-44); MEAN CORPUSCULAR HEMOGLOBIN 27 PG (25-34); MEAN CORPUSCULAR HGB CONC 32 G/DL (32-36); MEAN CORPUSCULAR VOLUME 82 FL (80-99); MEAN PLATELET VOLUME 9.6 FL (7.4-10.4); MONOCYTES # (AUTO) 1.8 X 10^3 (0.0-1.0); MONOCYTES % (AUTO) 9 % (0-12); NEUTROPHILS # (AUTO) 17.6 X 10^3 (1.8-7.8); NEUTROPHILS % (AUTO) 86 % (42-75); PLATELET COUNT 303 10^3/uL (130-400); RED BLOOD COUNT 3.87 10^6/uL (4.35-5.85); RED CELL DISTRIBUTION WIDTH 17.3 % (10.0-14.5); WHITE BLOOD COUNT 20.4 10^3/uL (4.3-11.0)
[2018-03-12 05:23] LABS: ALANINE AMINOTRANSFERASE 11 U/L (0-55); ALBUMIN 3.3 GM/DL (3.2-4.5); ALKALINE PHOSPHATASE 74 U/L (40-136); BILIRUBIN,TOTAL 0.5 MG/DL (0.1-1.0); BUN/CREATININE RATIO 15; CALCIUM 8.8 MG/DL (8.5-10.1); CARBON DIOXIDE 19 MMOL/L (21-32); CHLORIDE 103 MMOL/L (98-107); CREATININE SERUM 0.93 MG/DL (0.60-1.30); GFR ESTIMATED > 60; GLUCOSE 167 MG/DL (70-105); MAGNESIUM 1.5 MG/DL (1.8-2.4); PHOSPHORUS 3.9 MG/DL (2.3-4.7); POTASSIUM 3.8 MMOL/L (3.6-5.0); SODIUM 135 MMOL/L (135-145); TOTAL PROTEIN 6.8 GM/DL (6.4-8.2)
[2018-03-12] MEDS ORDERED: MAGNESIUM 1 GM/100 ML IVPB 100 ML IV SCH (06:00)
[2018-03-12] MEDS ORDERED: KCL 20 MEQ TAB (K-DUR) PO SCH (06:00)
[2018-03-12] MEDS ORDERED: POTASSIUM CL 10MEQ/50ML IVPB 50 ML IV SCH (06:00)
--- NOTE | 2018-03-12 07:29 | Diagnostic Imaging Report ---
Portable erect AP chest at 317. Indication: Respiratory distress In the interval since the prior exam of 03/11/2018, the left thorax has become nearly completely opacified by atelectasis/infiltrate and fluid. The right lung is clear, perhaps compensatorily hyperexpanded. The 2.6 cm nodule in the right lung base seen previously is also slightly greater, now measures 3.0 cm. The heart is obscured. The osseous structures are intact. Impression: The appearance of the chest has worsened since the prior study as there is now near-complete opacification of the left thorax by atelectasis/infiltrate and fluid. The nodular density in the right lung base also seems slightly larger. Dictated by: Dictated on workstation # [id number]
[2018-03-12] MEDS: inSUlin ASPART (NovoLOG) 1 UNIT/0.01 ML (CHARGE PER UNIT) SQ SCH ×3 (07:36→15:47)
[2018-03-12] MEDS: NS IV 1000 ML 1,000 ML IV SCH ×3 (07:59→17:13)
[2018-03-12] MEDS: MAGNESIUM 1 GM/100 ML IVPB 100 ML IV SCH ×2 (08:34→08:37)
[2018-03-12] MEDS ORDERED: NON-FORMULARY MEDICATION 1 EA EA (Pantoprazole Sodium (Protonix) 20 MG) PO PRN (10:00)
[2018-03-12] MEDS ORDERED: PANTOPRAZOLE 20 MG TABLET (PROTONIX) PO PRN (10:15)
[2018-03-12] MEDS: METOCLOPRAMIDE INJ 10 MG/2 ML (REGLAN) IVP SCH ×4 (10:48→23:45)
[2018-03-12] MEDS: ACETAMINOPHEN 500 MG TAB (TYLENOL) PO PRN ×3 (10:49→23:45)
[2018-03-12] MEDS: VANCOMYCIN 1 GM/NS 250 ML IVPB IV SCH ×2 (13:48)
--- NOTE | 2018-03-12 16:38 | History & Physicial (CHS) ---
HPI History of Present Illness: 69 yo M with known lung and stomach Ca that presented last night due to increasing shortness of breath and weakness. Found to have oxygen saturation in the 60s upon admission that improved with mask. Patient was due for chemo today which has been put on hold. Patient denies any fever or chills at home but was borderline hypothermic upon presentation. Denies any other pain. Patient doing better this AM. Breathing comfortably on NC and denies pain. Would like to be switched back to tylenol for pain control and no opoids due to constipation and nausea. Source: patient Exam Limitations: no limitations Date seen by provider: Mar 12, 2018 Time Seen by Provider: 09:55 Attending Physician Autumn Hill MD PCP Presley Caballero MD Consult Date of Admission Mar 11, 2018 at 11:35 Home Medications Home Medications Reviewed patient Home Medication Reconciliation performed by pharmacy medication reconciliations catheterization laboratory technician and/or nursing. Patients Allergies have been reviewed. Allergies Coded Allergies: codeine (Verified Allergy, Unknown, 09/28/17) KTW-Nkvoda-Dizxtt Hx Patient Social History Alcohol Use: Denies Use Recreational Drug Use: Yes Drug of Choice: marijuana Smoking Status: Former Smoker Type Used: Cigarettes 2nd Hand Smoke Exposure: No Recent Foreign Travel: No Contact w/other who traveled: No Recent Hopitalizations: No Recent Infectious Disease Expo: No Physical Abuse Screen: No Sexual Abuse: No Immunizations Up To Date Tetanus Booster (TDap): Unknown Past Medical History Left Lung Ca Stomach Ca h/o Tobacco Abuse Family Medical History Significant Family History: Cancer Family History: Cancer 19 MOTHER G8 SISTER (bone cancer) FH: cancer Review of Systems (CHC) Constitutional: No chills, No fever; malaise, weakness EENTM: no symptoms reported; No mouth pain, No nose congestion, No nose pain, No throat pain Respiratory: cough, dyspnea on exertion, short of breath Cardiovascular: no symptoms reported; No chest pain, No edema, No palpitations Gastrointestinal: no symptoms reported; No abdominal pain, No constipation, No diarrhea, No nausea, No vomiting Genitourinary: no symptoms reported; No dysuria, No frequency, No hematuria Musculoskeletal: no symptoms reported Skin: no symptoms reported Psychiatric/Neurological: No Symptoms Reported Reviewed Test Results Reviewed Test Results Lab Laboratory Tests Test 03/12/18 04:42 12/14/18 10:50 03/12/18 11:11 03/12/18 13:05 Range/Units White Blood Count 20.4 H 4.3-11.0 10^3/uL Red Blood Count 3.87 L 4.35-5.85 10^6/uL Hemoglobin 10.3 L 13.3-17.7 G/DL Hematocrit 32 L 40-54 % Mean Corpuscular Volume 82 80-99 FL Mean Corpuscular Hemoglobin 27 25-34 PG Mean Corpuscular Hemoglobin Concent 32 32-36 G/DL Red Cell Distribution Width 17.3 H 10.0-14.5 % Platelet Count 303 130-400 10^3/uL Mean Platelet Volume 9.6 7.4-10.4 FL Neutrophils (%) (Auto) 86 H 42-75 % Lymphocytes (%) (Auto) 5 L 12-44 % Monocytes (%) (Auto) 9 0-12 % Eosinophils (%) (Auto) 0 0-10 % Basophils (%) (Auto) 0 0-10 % Neutrophils # (Auto) 17.6 H 1.8-7.8 X 10^3 Lymphocytes # (Auto) 1.0 1.0-4.0 X 10^3 Monocytes # (Auto) 1.8 H 0.0-1.0 X 10^3 Eosinophils # (Auto) 0.0 0.0-0.3 10^3/uL Basophils # (Auto) 0.0 0.0-0.1 10^3/uL Sodium Level 135 135-145 MMOL/L Potassium Level 3.8 3.6-5.0 MMOL/L Chloride Level 103 98-107 MMOL/L Carbon Dioxide Level 19 L 21-32 MMOL/L Anion Gap 13 5-14 MMOL/L Blood Urea Nitrogen 14 7-18 MG/DL Creatinine 0.93 0.60-1.30 MG/DL Estimat Glomerular Filtration Rate > 60 BUN/Creatinine Ratio 15 Glucose Level 167 H 70-105 MG/DL Calcium Level 8.8 8.5-10.1 MG/DL Corrected Calcium 9.4 8.5-10.1 MG/DL Phosphorus Level 3.9 2.3-4.7 MG/DL Magnesium Level 1.5 L 1.8-2.4 MG/DL Total Bilirubin 0.5 0.1-1.0 MG/DL Aspartate Amino Transf (AST/SGOT) 9 5-34 U/L Alanine Aminotransferase (ALT/SGPT) 11 0-55 U/L Alkaline Phosphatase 74 40-136 U/L Total Protein 6.8 6.4-8.2 GM/DL Albumin 3.3 3.2-4.5 GM/DL Lactic Acid Level 3.01 *H 2.10 *H 0.50-2.00 MMOL/L Glucometer 133 H 70-110 MG/DL Test 03/12/18 15:44 03/12/18 19:55 Range/Units Glucometer 101 100 70-110 MG/DL Physical Exam-(CHC) Physical Exam Vital Signs VS - Last 72 Hours, by Label 03/11/18 03/11/18 03/11/18 03/11/18 08:47 08:47 09:56 11:47 Temp 94.8 98.0 Pulse 117 100 Resp 22 18 B/P (MAP) 116/83 (94) 142/94 (110) Pulse Ox 69 99 O2 Delivery Room Air OxyMask OxyMask OxyMask O2 Flow Rate 10.00 10.00 6.00 03/11/18 03/11/18 03/11/18 03/11/18 12:19 12:30 13:00 13:00 Temp 97.9 Pulse 100 105 105 Resp 18 17 B/P (MAP) 153/92 (112) 132/109 (117) Pulse Ox 96 94 O2 Delivery OxyMask OxyMask OxyMask O2 Flow Rate 10.00 10.00 03/11/18 03/11/18 03/11/18 03/11/18 13:00 13:32 14:00 14:18 Pulse 105 109 101 Resp 17 20 B/P (MAP) 132/109 (117) 143/92 (109) Pulse Ox 94 99 100 99 O2 Delivery OxyMask Nasal Cannula High Flow N/C O2 Flow Rate 10.00 6.00 6.00 FiO2 45 03/11/18 03/11/18 03/11/18 03/11/18 15:00 16:00 16:00 16:00 Temp 98.6 Pulse 109 98 Resp 25 25 B/P (MAP) 162/113 (129) 148/92 (110) Pulse Ox 99 O2 Delivery Nasal Cannula Nasal Cannula Nasal Cannula O2 Flow Rate 6.00 6.00 6.00 1203/11/18 03/11/18 03/11/18 17:00 18:00 19:00 19:00 Pulse 126 98 98 97 Resp 30 19 20 B/P (MAP) 155/138 (144) 156/93 (114) 144/94 (111) Pulse Ox 98 O2 Delivery Nasal Cannula Nasal Cannula Nasal Cannula O2 Flow Rate 6.00 6.00 6.00 03/11/18 03/11/18 03/11/18 03/11/18 19:04 19:19 20:00 20:00 Temp 98.3 97.3 Pulse 109 Resp 23 B/P (MAP) 147/99 (115) Pulse Ox 98 100 O2 Delivery High Flow N/C Nasal Cannula O2 Flow Rate 6.00 6.00 03/11/18 03/11/18 03/11/18 03/11/18 20:00 21:00 22:00 22:12 Pulse 98 98 Resp 18 33 B/P (MAP) 149/97 (114) 149/91 (110) Pulse Ox 99 100 100 99 O2 Delivery Nasal Cannula Nasal Cannula Nasal Cannula High Flow N/C O2 Flow Rate 6.00 6.00 6.00 6.00 03/11/18 03/12/18 03/12/18 03/12/18 23:00 00:00 00:00 01:00 Temp 98.3 Pulse 104 98 100 Resp 22 14 B/P (MAP) 142/91 (108) 138/97 (111) Pulse Ox 100 97 99 O2 Delivery Nasal Cannula Nasal Cannula Nasal Cannula O2 Flow Rate 6.00 6.00 6.00 03/12/18 03/12/18 03/12/18 03/12/18 01:00 02:00 02:23 02:23 Pulse 100 104 Resp 17 24 B/P (MAP) 147/91 (109) 146/95 (112) Pulse Ox 100 100 100 O2 Delivery Nasal Cannula Nasal Cannula High Flow N/C Nasal Cannula O2 Flow Rate 6.00 6.00 6.00 4.00 03/12/18 03/12/18 03/12/18 03/12/18 03:00 04:00 04:00 04:00 Temp 98.1 Pulse 110 101 Resp 24 29 B/P (MAP) 134/82 (99) 132/84 (100) Pulse Ox 99 95 97 O2 Delivery Nasal Cannula Nasal Cannula Nasal Cannula O2 Flow Rate 4.00 4.00 5.00 03/12/18 03/12/18 03/12/18 03/12/18 05:00 06:00 06:11 07:00 Pulse 100 105 107 Resp 18 18 26 B/P (MAP) 126/84 (98) 133/87 (102) 136/90 (105) Pulse Ox 97 98 95 97 O2 Delivery Nasal Cannula Nasal Cannula High Flow N/C Nasal Cannula O2 Flow Rate 4.00 4.00 4.00 4.00 03/12/18 03/12/18 03/12/18 03/12/18 07:22 07:46 08:00 08:00 Temp 98.4 Pulse 105 104 Resp 17 B/P (MAP) 104/63 (77) Pulse Ox 98 O2 Delivery Nasal Cannula Nasal Cannula O2 Flow Rate 4.00 4.00 03/12/18 03/12/18 03/12/18 03/12/18 09:00 10:00 11:00 12:00 Pulse 97 105 123 92 Resp 19 32 43 19 B/P (MAP) 125/86 (99) 124/85 (98) 146/100 (115) 120/75 (90) Pulse Ox 99 81 100 O2 Delivery Nasal Cannula Nasal Cannula Nasal Cannula Nasal Cannula O2 Flow Rate 4.00 4.00 4.00 4.00 03/12/18 03/12/18 03/12/18 03/12/18 12:09 12:10 13:00 13:21 Temp 97.8 Pulse 83 91 Resp 14 B/P (MAP) 114/73 (87) Pulse Ox 98 100 O2 Delivery Nasal Cannula Nasal Cannula O2 Flow Rate 4.00 4.00 03/12/18 03/12/18 03/12/18 03/12/18 14:00 15:00 15:19 15:22 Temp 98.1 Pulse 91 81 Resp 23 16 B/P (MAP) 123/76 (92) 119/87 (98) Pulse Ox 98 O2 Delivery Nasal Cannula Nasal Cannula Nasal Cannula O2 Flow Rate 4.00 4.00 4.00 03/12/18 03/12/18 03/12/18 03/12/18 18:38 19:55 20:00 21:26 Temp 97.7 Pulse 79 Resp 20 B/P (MAP) 120/61 (80) Pulse Ox 95 92 91 92 O2 Delivery High Flow N/C High Flow N/C Nasal Cannula High Flow N/C O2 Flow Rate 4.00 4.00 4.00 4.00 Capillary Refill : Less Than 3 SecondsLess Than 3 Seconds General Appearance: WD/WN, thin HEENT: PERRL/EOMI Neck: non-tender, full range of motion, supple Respiratory: crackles, rhonchi, wheezing, other (Normal work of breathing) Cardiovascular: normal peripheral pulses, regular rate, rhythm, no edema, no murmur Gastrointestinal: normal bowel sounds, non tender, soft, no organomegaly Back: no CVA tenderness, no vertebral tenderness Extremities: no pedal edema, no calf tenderness, normal capillary refill Neurologic/Psychiatric: busboy II-XII nml as tested, no motor/sensory deficits, alert, normal mood/affect, oriented x 3 Skin: normal color, warm/dry Lymphatic: no adenopathy Assessment/Plan Assessment/Plan Admission Status: Inpatient Order (span 2 midnights) Reason for Inpatient Admission: Patient requiring close monitoring for sepsis and NC oxygen (1) Sepsis Status: Acute Assessment & Plan: - Patient did not meet Severe sepsis criteria, cultures pending, antibiotics started and IVFs initiated Qualifiers: Qualified Codes: A41.9 - Sepsis, unspecified organism (2) Pneumonia involving left lung Status: Acute Assessment & Plan: - Likely post obstructive Qualifiers: Qualified Codes: J18.9 - Pneumonia, unspecified organism (3) Lung cancer Status: Acute Assessment & Plan: - Due to patient missing treatment will consult Dr Cummins to adjust treatment plan Qualifiers: Qualified Codes: C34.82 - Malignant neoplasm of overlapping sites of left bronchus and lung (4) Stomach cancer Status: Chronic Qualifiers: Qualified Codes: C16.9 - Malignant neoplasm of stomach, unspecified (5) Normocytic anemia Status: Chronic (6) DVT prophylaxis Status: Acute Assessment & Plan: lovenox (7) Full code status Assessment & Plan: - Had in depth conversation regarding poor prognosis given multiple sites of cancer and likely quality of life in the event of a code. Patient wishes to remain FULL CODE at this time. Clinical Quality Measures DVT/VTE Risk/Contraindication: Risk Factor Score Per Nursin RFS Level Per Nursing on Admit: 4+=Very High Copy Copies To 1: PRESLEY CABALLERO MD, HOLLY R MD Mar 12, 2018 16:38
[2018-03-12] MEDS ORDERED: GLYCERIN ADULT SUPPOSITORY PR NR ×2 (21:00)
[2018-03-12] MEDS ORDERED: POLYETHYLENE GLYCOL 17 GM (MIRALAX) PACK PO NR ×2 (21:00)
--- NOTE | 2018-03-12 21:37 | CONSULTATION REPORT ---
DATE OF SERVICE: 03/12/2018 The patient is admitted to room 433. REFERRING AND PRIMARY PHYSICIAN: Autumn Hill M.D. IMPRESSION: 1. A 68-year-old male admitted with left upper lobe pneumonia. 2. Metastatic poorly differentiated carcinoma involving lungs, stomach and adrenal gland. 3. On palliative chemotherapy with carboplatin and paclitaxel regimen x2 cycles with the last treatment 5 weeks ago. 4. Recent upper respiratory infection and on outpatient antibiotic therapy, but failed this. RECOMMENDATIONS: 1. Agree with inpatient admission and parenteral antibiotic therapy as well as bronchodilators and oxygen. 2. We will continue to hold chemotherapy until he has recovered from left upper lobe lobar pneumonia. 3. Once he recovers, he may need restaging studies and if there is evidence of progressive disease, we will consider changing treatments. 4. His overall prognosis is guarded. HISTORY OF PRESENT ILLNESS: The patient is a 68-year-old male, who was diagnosed with a poorly differentiated carcinoma that was metastatic to the stomach, lungs and adrenal glands and he developed upper GI bleeding. Both the EGD with biopsy of the stomach mass as well as a needle biopsy of the lung mass showed similar histology and IHC panel. Tumor type ID testing was done, which favored malignant melanoma. The patient was treated as a carcinoma of unknown primary site with two courses of chemotherapy with carboplatin and paclitaxel regimen. Last round of chemotherapy was three weeks ago. He has had some side effects to the chemotherapy. He was due for treatment 2 weeks ago, which was held because of upper respiratory symptoms and was treated with an outpatient antibiotic course. He presented to the emergency room yesterday with increasing shortness of breath and chills. He was evaluated at the emergency room and found to have left upper lobe infiltrates along with hypoxia and admitted to ICU initially. He was feeling better with better oxygenation and hence moved to med-surg unit. An oncology consultation was requested for concurrent management. PAST MEDICAL HISTORY: Essentially unremarkable except for upper GI bleeding in mid 2018 at which time, he had an EGD with biopsy of a stomach mass and diagnosis of the poorly differentiated malignancy. Prior to that, he had not had a followup with her physician for few decades. PAST SURGICAL HISTORY: Include EGD with biopsy, colonoscopy with a biopsy of a few polyps. Needle biopsy of the lung mass. Port insertion. No other major surgeries. He had removal of her scalp lesion in the 1970s while he was in the [employer]. He denied that this was malignant. SOCIAL HISTORY: The patient is . He has a daughter who lives in [place] and the son who lives in [place]. 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 He retired earlier this year. He gives history of tobacco use and marijuana use in the past. Denied any significant alcohol use except occasional beer. No history of other recreational drug use. FAMILY HISTORY: Significant for his sister, who was diagnosed with melanoma that was metastatic. Mother had an unknown malignancy. PHYSICAL EXAMINATION: GENERAL: Today showed an elderly -[place]ym[place]es male, thin appearing, awake and oriented, in no acute distress. VITAL SIGNS: Temperature was 98.1, pulse rate of 81, respirations 16, blood pressure 119/87, pulse oximetry showed 98% saturation on 4 liters of oxygen by nasal cannula. HEENT: Normocephalic with male pattern baldness, extraocular muscles intact, conjunctivae pink, oral mucosa moist. NECK: Supple, with no JVD. No cervical, supraclavicular or axillary lymphadenopathy palpable. CHEST: Symmetrical with a port present. LUNGS: With diminished breath sounds in the left upper half of the lung donahue. Right lung is fairly clear to auscultation without wheezes or rales. HEART: Regular in rate and rhythm. No murmurs or gallops heard. ABDOMEN: Soft, nontender. No hepatosplenomegaly or other masses palpable. EXTREMITIES: Showed no edema. SKIN: Turgor was slightly poor. NEUROLOGIC: Showed no focal motor deficits. LABORATORY DATA: CBC done today showed WBC 20.4, hemoglobin 10.3, platelet count 303,000 with neutrophil count 17.6, lymphocyte count 1.0 and monocyte count 1.8. Chemistry panel showed relatively normal electrolytes except bicarbonate level of 19. BUN was 14 with creatinine 0.93 with GFR more than 60 mL per minute. Nonfasting glucose was 167. Liver function studies were within normal limits. Serum magnesium was below normal at 1.5. Initial lactic acid level drawn at the emergency room was 3.01 with a followup of 2.1. Chest x-ray done today morning showed the left thorax has become nearly completely opacified by atelectasis/infiltrate and fluid. This has worsened since the exam from yesterday. Right lung is clear. 2.6 cm nodule in the right lung base seen previously, measures 3.0 cm now. Osseous structures are intact. Thank you for allowing me to participate in this patient's care. I will follow the patient with you this weekend and Dr. Saucedo will see the patient on Thursday upon her return. Job ID: [id number] DocumentID: [id number] Dictated Date: 03/12/2018 17:07:36 Fabric Worker Fitter Date: 03/12/2018 21:36:34 Dictated By: LILIANA CLAY MD MTDD
[2018-03-12] MEDS: morphine INJ 10 MG/ML 1ML (SYR OR VIAL) IV PRN (23:54)
[2018-03-12] MEDS: POLYETHYLENE GLYCOL 17 GM (MIRALAX) PACK PO PRN (23:55)
[2018-03-13] VITALS (7 sets, daily range): BP systolic 119–147; BP diastolic 66–91
[2018-03-13] MEDS: PIPERACILLIN/TAZO 4.5 GM/NS 100 ML IV SCH ×6 (00:49→17:04)
[2018-03-13] MEDS: RT-ALBUTEROL/IPRATROPIUM 3 ML (DUONEB) VIAL INH SCH ×6 (01:56→20:51)
[2018-03-13] MEDS: NS IV 1000 ML 1,000 ML IV SCH ×3 (02:34→21:43)
[2018-03-13] MEDS: morphine INJ 10 MG/ML 1ML (SYR OR VIAL) IV PRN ×2 (04:27→08:10)
[2018-03-13] MEDS: ONDANSETRON 4 MG/2 ML (SDV) Z0FRAN IV PRN ×2 (08:09→13:49)
[2018-03-13] MEDS: POLYETHYLENE GLYCOL 17 GM (MIRALAX) PACK PO PRN (08:12)
--- NOTE | 2018-03-13 10:19 | Progress Note (SOAP) ---
Subjective Subjective/Events-last exam Patient states that he had some shortness of breath overnight. Denies any fever or coughing. States that he does fine when he is laying in bed but gets short of breath with any activity. + BM yesterday. tolerating PO diet Review of Systems Date Seen by Provider: Mar 13, 2018 Time Seen by Provider: 09:25 Pulmonary: Dyspnea, Cough Cardiovascular: No: Chest Pain, Palpitations, Edema Gastrointestinal: No: Nausea, Vomiting, Diarrhea, Constipation Genitourinary: No Dysuria, No Frequency Neurological: Weakness Focused Exam Lactate Level 03/11/18 16:00: Lactic Acid Level 3.24*H 03/12/18 10:50: Lactic Acid Level 3.01*H 03/12/18 13:05: Lactic Acid Level 2.10*H Objective Exam Last Set of Vital Signs Vital Signs Date Time Temp Pulse Resp B/P (MAP) Pulse Ox O2 Delivery O2 Flow Rate FiO2 03/13/18 06:59 90 High Flow N/C 7.00 03/13/18 05:00 98.1 92 18 119/68 (85) 03/11/18 13:32 45 Capillary Refill : Less Than 3 SecondsLess Than 3 Seconds I&O Intake and Output 03/13/18 00:00 Intake Total 2260 ml Output Total 1550 ml Balance 710 ml Intake Oral 760 ml IV Total 1500 ml Output Urine Total 1550 ml # Voids 2 # Bowel Movements 1 General: Alert, Oriented X3, Cooperative, No Acute Distress, Other (thin) HEENT: Mucous Memb Moist/[place] Lungs: Clear to Auscultation, Normal Air Movement, Other (increased work of breathing with minimal acticity) Heart: Regular Rate, No Murmurs Abdomen: Normal Bowel Sounds, Soft, No Tenderness, No Masses Extremities: No Edema, No Tenderness/Swelling Results/Procedures Lab Laboratory Tests 03/12/18 10:50: Lactic Acid Level 3.01*H 03/12/18 11:11: Glucometer 133H 03/12/18 13:05: Lactic Acid Level 2.10*H 03/12/18 15:44: Glucometer 101 03/12/18 19:55: Glucometer 100 Microbiology 03/11/18 Blood Culture - Preliminary, Resulted No growth 03/11/18 MRSA Screen - Final, Complete MRSA not isolated Assessment/Plan Assessment/Plan (1) Sepsis Status: Acute Assessment & Plan: - Patient did not meet Severe sepsis criteria, cultures pending, antibiotics started and IVFs initiated 03/13- Continue Antibiotics, cultures NGTD Qualifiers: Qualified Codes: A41.9 - Sepsis, unspecified organism (2) Pneumonia involving left lung Status: Acute Assessment & Plan: - Likely post obstructive Qualifiers: Qualified Codes: J18.9 - Pneumonia, unspecified organism (3) Lung cancer Status: Acute Assessment & Plan: - Due to patient missing treatment will consult Dr Cummins to adjust treatment plan Qualifiers: Qualified Codes: C34.82 - Malignant neoplasm of overlapping sites of left bronchus and lung (4) Stomach cancer Status: Chronic Qualifiers: Qualified Codes: C16.9 - Malignant neoplasm of stomach, unspecified (5) Normocytic anemia Status: Chronic Assessment & Plan: 03/13- No signs of acute bleeding, will continue to monitor (6) DVT prophylaxis Status: Acute Assessment & Plan: lovenox (7) Full code status Assessment & Plan: - Had in depth conversation regarding poor prognosis given multiple sites of cancer and likely quality of life in the event of a code. Patient wishes to remain FULL CODE at this time. Clinical Quality Measures DVT/VTE Risk/Contraindication: Risk Factor Score Per Nursin RFS Level Per Nursing on Admit: 4+=Very High LINDA HERRERA MD Mar 13, 2018 10:19
[2018-03-13] MEDS ORDERED: ENOXAPARIN 40 MG/0.4 ML (LOVENOX) SYR SQ SCH (10:30)
[2018-03-13] MEDS: ENOXAPARIN 30 MG/0.3 ML (LOVENOX) SYR SC SCH (10:33)
[2018-03-13 10:47] LABS: BASOPHILS % (AUTO) 0 % (0-10); EOSINOPHILS % (AUTO) 0 % (0-10); HEMATOCRIT 31 % (40-54); HEMOGLOBIN 9.7 G/DL (13.3-17.7); LYMPHOCYTES # (AUTO) 0.8 X 10^3 (1.0-4.0); LYMPHOCYTES % (AUTO) 5 % (12-44); MEAN CORPUSCULAR HEMOGLOBIN 26 PG (25-34); MEAN CORPUSCULAR HGB CONC 32 G/DL (32-36); MEAN CORPUSCULAR VOLUME 82 FL (80-99); MEAN PLATELET VOLUME 9.9 FL (7.4-10.4); MONOCYTES # (AUTO) 1.4 X 10^3 (0.0-1.0); MONOCYTES % (AUTO) 8 % (0-12); NEUTROPHILS # (AUTO) 14.9 X 10^3 (1.8-7.8); NEUTROPHILS % (AUTO) 87 % (42-75); PLATELET COUNT 269 10^3/uL (130-400); RED BLOOD COUNT 3.74 10^6/uL (4.35-5.85); RED CELL DISTRIBUTION WIDTH 16.9 % (10.0-14.5); WHITE BLOOD COUNT 17.1 10^3/uL (4.3-11.0)
[2018-03-13 11:05] LABS: BUN/CREATININE RATIO 10; CALCIUM 8.9 MG/DL (8.5-10.1); CARBON DIOXIDE 21 MMOL/L (21-32); CHLORIDE 103 MMOL/L (98-107); CREATININE SERUM 0.71 MG/DL (0.60-1.30); GFR ESTIMATED > 60; GLUCOSE 111 MG/DL (70-105); POTASSIUM 3.9 MMOL/L (3.6-5.0); SODIUM 135 MMOL/L (135-145)
[2018-03-13] MEDS: METOCLOPRAMIDE INJ 10 MG/2 ML (REGLAN) IVP PRN (11:28)
[2018-03-13] MEDS: morphine INJ 10 MG/ML 1ML (SYR OR VIAL) IVP PRN ×4 (11:28→22:00)
[2018-03-13] MEDS: SENNA W/DOCUSATE (SENOKOT S) TABLET PO SCH ×2 (11:30→20:56)
[2018-03-13] MEDS: VANCOMYCIN 1 GM/NS 250 ML IVPB IV SCH ×2 (13:51)
[2018-03-14] VITALS: BP 144/79
[2018-03-14] MEDS: RT-ALBUTEROL/IPRATROPIUM 3 ML (DUONEB) VIAL INH SCH ×6 (01:24→21:33)
[2018-03-14] MEDS: PIPERACILLIN/TAZO 4.5 GM/NS 100 ML IV SCH ×6 (02:02→17:24)
--- NOTE | 2018-03-14 05:26 | Pulmonary Consultation ---
History of Present Illness History of Present Illness Date of Consultation 03/14/18 05:21 Time Seen by Provider: 05:21 Date of Admission History of Present Illness 69yo with hx of lung and gastric cancer who is currently undergoing chemotherapy presented to ED secondary to worsening SOB, and weakness. Upon ED admission pt was found to have sp02 in the 60's which improved with placement of oxygen mask. Pt was due to have chemotherapy the day of admission. I am consulted for ICU admission. Allergies and Home Medications Allergies Coded Allergies: codeine (Verified Allergy, Unknown, 09/28/17) Home Medications Calcium Carbonate 200 Mg Tab.chew, 400 MG PO Q4H PRN for HEARTBURN, (Reported) Ondansetron HCl 8 Mg Tablet, 8 MG PO Q8H PRN for NAUSEA/VOMITING-1ST LINE, ( Reported) Oxycodone HCl 20 Mg Tab.er.12h, 20 MG PO BID PRN for PAIN-SEVERE, (Reported) Pantoprazole Sodium 20 Mg Tablet.dr, 20 MG PO DAILY PRN for HEARTBURN, (Reported ) Polyethylene Glycol 3350 17 Gm Powd.pack, 17 GM PO DAILY PRN for CONSTIPATION- 2ND LINE, (Reported) Past Xmgchww-Dskmft-Gjwxzt Hx Past Med/Social Hx: Reviewed Nursing Past Med/Soc Hx Patient Social History Alcohol Use: Denies Use Number of Drinks Today: AA Alcohol Beverage of Choice: Beer Recreational Drug Use: Yes Drug of Choice: marijuana Smoking Status: Former Smoker Type Used: Cigarettes Former Smoker, Quit: Oct 28, 2017 2nd Hand Smoke Exposure: No Recent Foreign Travel: No Contact w/Someone Who Travel: No Recent Infectious Disease Expo: No Recent Hopitalizations: No Immunizations Up To Date Tetanus Booster (TDap): Unknown Seasonal Allergies Seasonal Allergies: No Past Medical History Surgeries: Yes (stomach ulcer repair, LT SIDE PORT PLACEMENT) Respiratory: No Currently Using CPAP: No Currently Using BIPAP: No Cardiac: No Neurological: No Reproductive Disorders: No Genitourinary: No Gastrointestinal: Yes Gastrointestinal Bleed, Ulcer Musculoskeletal: No Endocrine: No HEENT: No Cancer: Yes Lung, Stomach Did You Recieve Any Treatments: Yes What Type of Treatment Did You: Chemotherapy Psychosocial: No Integumentary: No Blood Disorders: Yes Adverse Reaction/Blood Tranf: No Family Medical History Reviewed Nursing Family Hx Cancer 19 MOTHER G8 SISTER (bone cancer) FH: cancer Cancer Sepsis Event Evaluation Height, Weight, BMI Height: 5'9.00" Weight: 115lbs. 7.0oz. 52.671300ah; 16.9 BMI Method:Stated Exam Exam Vital Signs Date Time Temp Pulse Resp B/P (MAP) Pulse Ox O2 Delivery O2 Flow Rate FiO2 03/14/18 01:24 94 Vapotherm 10.00 100 03/14/18 00:00 98.3 88 18 144/79 (100) 94 Vapotherm 10.00 03/13/18 21:30 118 93 100 03/13/18 20:51 93 Vapotherm 10.00 100 03/13/18 19:55 93 Vapotherm 10.00 100 03/13/18 19:45 97.7 106 22 147/83 (104) 96 Nasal Cannula 4.00 03/13/18 19:21 100 Vapotherm 15.00 100 03/13/18 18:43 85 Vapotherm 20.00 03/13/18 16:25 97.7 83 16 146/74 (98) 94 Nasal Cannula 4.00 03/13/18 15:36 94 High Flow N/C 14.00 03/13/18 14:31 90 High Flow N/C 14.00 03/13/18 12:00 97.4 100 20 147/70 (95) 94 Nasal Cannula 4.00 03/13/18 10:56 78 High Flow N/C 7.00 03/13/18 08:00 92 High Flow N/C 6.00 03/13/18 08:00 97.1 99 20 125/66 (85) 94 Nasal Cannula 4.00 03/13/18 06:59 90 High Flow N/C 7.00 03/13/18 06:55 86 High Flow N/C 4.00 I & O 03/14/18 07:00 Intake Total 3190 ml Output Total 1100 ml Balance 2090 ml Height & Weight Height: 5'9.00" Weight: 115lbs. 7.0oz. 52.130868rz; 16.9 BMI Method:Stated General Appearance: Cachetic, Mild Distress, Thin HEENT: PERRL/EOMI, Pharynx Normal Neck: Non Tender, Supple Respiratory: No Accessory Muscle Use, Decreased Breath Sounds, Wheezing Cardiovascular: Regular Rate, Rhythm, No Murmur Capillary Refill: Less Than 3 Seconds Gastrointestinal: normal bowel sounds, non tender, soft, no organomegaly Extremity: Normal Range of Motion, Non Tender Neurologic/Psychiatric: Alert, Oriented x3 Results Lab Laboratory Tests 03/13/18 10:30 Assessment/Plan Assessment/Plan Acute on chronic respiratory failure -pt is currently requiring high flow 100% oxygen via vapotherm End stage metastatic left lung cancer involving stomach, and adrenal glands -Today's labs pending -Has been undergoing palative chemotherapy pneumonia with opacification of left lung -Continue Zosyn -Mayes cultures are negative thus far -Check CT of chest with contrast. Pt's overall prognosis is poor. Will order CT of chest to better evaluate opacified left lung. Pt is currently a full code. PRADIP JACKSON DO Mar 14, 2018 05:26
[2018-03-14 05:27] LABS: BASOPHILS % (AUTO) 0 % (0-10); EOSINOPHILS % (AUTO) 0 % (0-10); HEMATOCRIT 31 % (40-54); LYMPHOCYTES # (AUTO) 0.9 X 10^3 (1.0-4.0); LYMPHOCYTES % (AUTO) 5 % (12-44); MEAN CORPUSCULAR HGB CONC 32 G/DL (32-36); MEAN CORPUSCULAR VOLUME 82 FL (80-99); MEAN PLATELET VOLUME 9.4 FL (7.4-10.4); MONOCYTES # (AUTO) 1.5 X 10^3 (0.0-1.0); MONOCYTES % (AUTO) 8 % (0-12); NEUTROPHILS # (AUTO) 16.3 X 10^3 (1.8-7.8); NEUTROPHILS % (AUTO) 87 % (42-75); PLATELET COUNT 300 10^3/uL (130-400); RED BLOOD COUNT 3.78 10^6/uL (4.35-5.85); RED CELL DISTRIBUTION WIDTH 17.1 % (10.0-14.5); WHITE BLOOD COUNT 18.8 10^3/uL (4.3-11.0)
[2018-03-14 05:29] LABS: MEAN CORPUSCULAR HEMOGLOBIN 26 PG (25-34)
[2018-03-14 05:44] LABS: BUN/CREATININE RATIO 11; CALCIUM 9.3 MG/DL (8.5-10.1); CARBON DIOXIDE 21 MMOL/L (21-32); CHLORIDE 103 MMOL/L (98-107); CREATININE SERUM 0.83 MG/DL (0.60-1.30); GFR ESTIMATED > 60; GLUCOSE 131 MG/DL (70-105); POTASSIUM 4.3 MMOL/L (3.6-5.0); SODIUM 136 MMOL/L (135-145)
[2018-03-14] MEDS ORDERED: RECEIVED CONTRAST (Hold Metformin) IV SCH (07:00)
[2018-03-14] MEDS ORDERED: IOHEXOL 350 MG/ML 100 ML (OMNIPAQUE 350) VIAL IV ONE (07:00)
[2018-03-14] MEDS ORDERED: NS 50 ML (IVPB) BAG IV ONE (07:00)
[2018-03-14 08:00] VITALS: BP 141/72
--- NOTE | 2018-03-14 08:30 | Diagnostic Imaging Report ---
INDICATION: Pneumonia. History of the lung and stomach cancer. COMPARISON with 03/12/2018. FINDINGS: There continues to be complete opacification in the left hemithorax with volume loss. There is hyperaeration of the right lung. A large mass is again noted in the right lower lung which appears unchanged. There is some basilar atelectasis and/or infiltrate on the right. Chronic interstitial lung disease noted throughout the right lung. No pneumothorax. IMPRESSION: 1. Continued volume loss with opacification of the left hemithorax. 2. Large mass right lung base again noted, unchanged. There does appear to be some new patchy infiltrate and/or atelectasis in right lung base. Dictated by: Dictated on workstation # [id number]
--- NOTE | 2018-03-14 08:59 | Diagnostic Imaging Report ---
PROCEDURE: CT chest with contrast only. TECHNIQUE: Multiple contiguous axial images were obtained through the chest after administration of intravenous contrast. INDICATION: Left pleural effusion. History of metastatic lung disease. COMPARISON: Comparison with previous CT chest of 09/28/2017. FINDINGS: There is complete volume loss now of the left lung. There is large left pleural effusion. There is shift of mediastinum to the left. There is hyperaeration of the right lung with chronic interstitial changes. There is a solid mass in the right lower lobe which is relatively well-circumscribed and measures approximately 3.2 cm in diameter. There is mild atelectasis in right lower lobe. There is good opacification of the aorta which shows atherosclerotic change without aneurysm. Pulmonary arteries are well opacified. There is a mass in the left hilum compressing the left pulmonary artery. There is a large mass in the left lower lobe which is hypodense measuring approximately 9 cm. IMPRESSION: 1. Complete atelectasis left lung with large left hilar mass and left lower lobe mass which are compressing the bronchi and left main pulmonary artery. 2. Solid mass measuring 3.2 cm present right lower lobe consistent with metastatic disease. Dictated by: Dictated on workstation # [id number]
[2018-03-14] MEDS: NS IV 1000 ML 1,000 ML IV SCH (09:45)
[2018-03-14] MEDS: SENNA W/DOCUSATE (SENOKOT S) TABLET PO SCH ×2 (09:48→20:30)
[2018-03-14] MEDS: ENOXAPARIN 30 MG/0.3 ML (LOVENOX) SYR SC SCH (09:48)
[2018-03-14 12:00] VITALS: BP 117/70
[2018-03-14] MEDS ORDERED: FLEET ENEMA ADULT 1 EA BTL PR PRN (14:15)
--- NOTE | 2018-03-14 14:59 | Progress Note (SOAP) ---
Subjective Subjective/Events-last exam Patient stating that he is having increasing shortness of breath, on vapotherm this AM. + constipation, would like enema today to help with stooling. Tolerating PO diet and ambulation short distances. Review of Systems Date Seen by Provider: Mar 14, 2018 Time Seen by Provider: 13:45 General: No Chills; Malaise Pulmonary: Dyspnea, Cough Cardiovascular: Edema; No: Chest Pain, Palpitations Gastrointestinal: Constipation Neurological: Weakness Focused Exam Lactate Level 03/12/18 10:50: Lactic Acid Level 3.01*H 03/12/18 13:05: Lactic Acid Level 2.10*H 03/14/18 06:50: Lactic Acid Level 1.19 Objective Exam Last Set of Vital Signs Vital Signs Date Time Temp Pulse Resp B/P (MAP) Pulse Ox O2 Delivery O2 Flow Rate FiO2 03/14/18 14:42 95 Vapotherm 10.00 100 03/14/18 12:00 98.1 126 20 117/70 (86) Capillary Refill : Less Than 3 SecondsLess Than 3 Seconds I&O Intake and Output 03/14/18 00:00 Intake Total 3190 ml Output Total 1850 ml Balance 1340 ml Intake Oral 740 ml IV Total 2450 ml Output Urine Total 1850 ml # Voids 4 General: Alert, Oriented X3, Mild Distress HEENT: Mucous Memb Moist/[place] Lungs: Other (basilar crackles, increased work of breathing with minimal activity) Heart: Regular Rate, No Murmurs Abdomen: Normal Bowel Sounds, Soft, No Tenderness, No Masses Extremities: No Edema, No Tenderness/Swelling Neuro: Sensation Intact, Cranial Nerves 3-12 NL Psych/Mental Status: Mental Status NL, Mood NL Results/Procedures Lab Laboratory Tests 03/14/18 05:17: White Blood Count 18.8H, Red Blood Count 3.78L, Hemoglobin 10.0L, Hematocrit 31L , Mean Corpuscular Volume 82, Mean Corpuscular Hemoglobin 26, Mean Corpuscular Hemoglobin Concent 32, Red Cell Distribution Width 17.1H, Platelet Count 300, Mean Platelet Volume 9.4, Neutrophils (%) (Auto) 87H, Lymphocytes (%) (Auto) 5L , Monocytes (%) (Auto) 8, Eosinophils (%) (Auto) 0, Basophils (%) (Auto) 0, Neutrophils # (Auto) 16.3H, Lymphocytes # (Auto) 0.9L, Monocytes # (Auto) 1.5H, Eosinophils # (Auto) 0.0, Basophils # (Auto) 0.0, Sodium Level 136, Potassium Level 4.3, Chloride Level 103, Carbon Dioxide Level 21, Anion Gap 12, Blood Urea Nitrogen 9, Creatinine 0.83, Estimat Glomerular Filtration Rate > 60, BUN/ Creatinine Ratio 11, Glucose Level 131H, Calcium Level 9.3 03/14/18 06:50: Lactic Acid Level 1.19 Microbiology 03/11/18 Blood Culture - Preliminary, Resulted No growth 03/11/18 MRSA Screen - Final, Complete MRSA not isolated Assessment/Plan Assessment/Plan (1) Sepsis Status: Acute Assessment & Plan: - Patient did not meet Severe sepsis criteria, cultures pending, antibiotics started and IVFs initiated 03/13- Continue Antibiotics, cultures NGTD 03/14- cultures continue to be negative, treating for post obstructive PNA Qualifiers: Qualified Codes: A41.9 - Sepsis, unspecified organism (2) Pneumonia involving left lung Status: Acute Assessment & Plan: - Likely post obstructive Qualifiers: Qualified Codes: J18.9 - Pneumonia, unspecified organism (3) Lung cancer Status: Acute Assessment & Plan: - Due to patient missing treatment will consult Dr Cummins to adjust treatment plan Qualifiers: Qualified Codes: C34.82 - Malignant neoplasm of overlapping sites of left bronchus and lung (4) Stomach cancer Status: Chronic Qualifiers: Qualified Codes: C16.9 - Malignant neoplasm of stomach, unspecified (5) Normocytic anemia Status: Chronic Assessment & Plan: 03/13- No signs of acute bleeding, will continue to monitor (6) Constipation Status: Acute Assessment & Plan: 03/14- Enema today, continue miralax and Senna-S Qualifiers: Qualified Codes: K59.00 - Constipation, unspecified (7) DVT prophylaxis Status: Acute Assessment & Plan: lovenox (8) Full code status Assessment & Plan: - Had in depth conversation regarding poor prognosis given multiple sites of cancer and likely quality of life in the event of a code. Patient wishes to remain FULL CODE at this time. Clinical Quality Measures DVT/VTE Risk/Contraindication: Risk Factor Score Per Nursin RFS Level Per Nursing on Admit: 4+=Very High LINDA HERRERA MD Mar 14, 2018 14:59
[2018-03-14] MEDS ORDERED: MAGNESIUM CITRATE 300 ML BTL PO NR (15:45)
[2018-03-14 16:50] VITALS: BP 126/77
[2018-03-14] MEDS ORDERED: FUROSEMIDE 40 MG/4 ML INJ (LASIX) IVP ONE (17:00)
[2018-03-14] MEDS: METOCLOPRAMIDE INJ 10 MG/2 ML (REGLAN) IVP PRN (17:22)
[2018-03-14] MEDS: ACETAMINOPHEN 500 MG TAB (TYLENOL) PO PRN (17:22)
[2018-03-14 20:00] VITALS: BP 124/76
[2018-03-15] VITALS: BP 141/76
[2018-03-15] MEDS: PIPERACILLIN/TAZO 4.5 GM/NS 100 ML IV SCH ×6 (01:23→17:43)
[2018-03-15 04:00] VITALS: BP 126/76
[2018-03-15 05:34] LABS: BASOPHILS % (AUTO) 0 % (0-10); EOSINOPHILS % (AUTO) 0 % (0-10); HEMATOCRIT 28 % (40-54); HEMOGLOBIN 8.8 G/DL (13.3-17.7); LYMPHOCYTES # (AUTO) 0.8 X 10^3 (1.0-4.0); LYMPHOCYTES % (AUTO) 5 % (12-44); MEAN CORPUSCULAR HEMOGLOBIN 26 PG (25-34); MEAN CORPUSCULAR HGB CONC 32 G/DL (32-36); MEAN CORPUSCULAR VOLUME 82 FL (80-99); MEAN PLATELET VOLUME 9.4 FL (7.4-10.4); MONOCYTES # (AUTO) 1.6 X 10^3 (0.0-1.0); MONOCYTES % (AUTO) 9 % (0-12); NEUTROPHILS # (AUTO) 14.5 X 10^3 (1.8-7.8); NEUTROPHILS % (AUTO) 86 % (42-75); PLATELET COUNT 288 10^3/uL (130-400); RED BLOOD COUNT 3.37 10^6/uL (4.35-5.85); RED CELL DISTRIBUTION WIDTH 16.8 % (10.0-14.5)
[2018-03-15 05:56] LABS: BUN/CREATININE RATIO 12; CALCIUM 9.3 MG/DL (8.5-10.1); CARBON DIOXIDE 24 MMOL/L (21-32); CHLORIDE 103 MMOL/L (98-107); CREATININE SERUM 0.83 MG/DL (0.60-1.30); GFR ESTIMATED > 60; GLUCOSE 89 MG/DL (70-105); POTASSIUM 3.7 MMOL/L (3.6-5.0); SODIUM 140 MMOL/L (135-145)
--- NOTE | 2018-03-15 06:47 | Pulmonary Progress Note ---
MARKE ARCHER MED STUDENT 03/15/18 0647: Subjective Date Seen by a Provider: Mar 15, 2018 Time Seen by a Provider: 06:42 Subjective/Events-last exam Patient reports he feels very tired and weak today. He presumes this is from not eating. Still very short of breath. Sepsis Event Evaluation Height, Weight, BMI Height: 5'9.00" Weight: 118lbs. 3.0oz. 53.462406qt; 16.9 BMI Method:Stated Focused Exam Lactate Level 03/12/18 10:50: Lactic Acid Level 3.01*H 03/12/18 13:05: Lactic Acid Level 2.10*H 03/14/18 06:50: Lactic Acid Level 1.19 Respiratory: Chest Non Tender, Decreased Breath Sounds, Respiratory Distress, Other (on vapotherm) Cardiovascular: No Edema, Tachycardia Skin: normal color Exam Exam Vital Signs Date Time Temp Pulse Resp B/P (MAP) Pulse Ox O2 Delivery O2 Flow Rate FiO2 03/15/18 01:00 98 Vapotherm 10.00 85 03/15/18 00:00 99.2 101 20 141/76 (97) 95 Vapotherm 10.00 03/14/18 21:34 Vapotherm 10.00 90 03/14/18 20:00 95 Vapotherm 10.00 03/14/18 20:00 98.1 102 16 124/76 (92) 95 Vapotherm 10.00 03/14/18 19:03 94 Vapotherm 10.00 90 03/14/18 16:57 94 Vapotherm 10.00 90 03/14/18 16:50 98.5 114 18 126/77 (93) 96 Vapotherm 10.00 03/14/18 14:42 95 Vapotherm 10.00 100 03/14/18 12:00 98.1 126 20 117/70 (86) 96 Vapotherm 10.00 03/14/18 08:00 100 Vapotherm 10.00 03/14/18 08:00 98.4 107 20 141/72 (95) 95 Vapotherm 10.00 03/14/18 06:53 90 Vapotherm 10.00 100 I & O 03/15/18 07:00 Intake Total 1120 ml Output Total 1550 ml Balance -430 ml Height & Weight Height: 5'9.00" Weight: 118lbs. 3.0oz. 53.553019yy; 16.9 BMI Method:Stated General Appearance: Chronically ill, Cachetic, Mild Distress, Thin HEENT: PERRL/EOMI Neck: Non Tender, Supple Respiratory: Chest Non Tender, No Accessory Muscle Use, Decreased Breath Sounds , Respiratory Distress, Other (on vapotherm and still SOB) Cardiovascular: No Murmur, Tachycardia Capillary Refill: Less Than 3 Seconds Gastrointestinal: non tender, soft Extremity: Normal Range of Motion, Non Tender Neurologic/Psychiatric: Alert, Oriented x3 Skin: Normal Color Results Lab Laboratory Tests 03/13/18 10:30 03/14/18 05:17 03/15/18 05:27 Assessment/Plan Assessment/Plan Acute on chronic respiratory failure -pt is currently requiring high flow 85% oxygen via vapotherm -O2 sats are improved (93 this morning) but he is still very SOB just from talking End stage metastatic left lung cancer involving stomach, and adrenal glands -Has been undergoing palative chemotherapy, due for chemotherapy treatment the day of admission pneumonia with opacification of left lung -Continue Zosyn -Mayes cultures are negative thus far -Check CT of chest with contrast -CT showed atelectasis, and a left hilar mass compressing the bronchi and left main pulmonary artery Pt's overall prognosis is poor. Pt is currently a full code. PRADIP JACKSON DO 03/15/18 0807: Subjective Time Seen by a Provider: 08:01 Subjective/Events-last exam Pt is still on Vapotherm at 80% oxygen. He has been coughing up blood tinged sputum. CT scan shows rapid progression of lung cancer causing opacification of left lung. Exam Exam General Appearance: Chronically ill, Cachetic, Mild Distress, Thin Respiratory: Decreased Breath Sounds, Respiratory Distress, Other (on vapotherm and still SOB) Cardiovascular: Tachycardia Gastrointestinal: non tender, soft Extremity: Normal Range of Motion, Non Tender Neurologic/Psychiatric: Alert, Oriented x3 Skin: Normal Color Assessment/Plan Assessment/Plan Acute on chronic respiratory failure -pt is currently requiring high flow 85% oxygen via vapotherm -O2 sats are improved (93 this morning) but he is still very SOB just from talking End stage metastatic left lung cancer involving stomach, and adrenal glands -Has been undergoing palative chemotherapy, due for chemotherapy treatment the day of admission pneumonia with opacification of left lung -Continue Zosyn -Mayes cultures are negative thus far -Check CT of chest with contrast -CT showed atelectasis, and a left hilar mass compressing the bronchi and left main pulmonary artery Pt's overall prognosis is poor. Pt's CT scan shows progression of lung cancer bilateral causing complete opacification of left lung with compression of the LLL bronchus and pulmonary artery . I discussed hospice care with patient and he is very interested. He wants more information on home hospice. I will consult hospice for education. MAREK ARCHER MED STUDENT Mar 15, 2018 06:47 PRADIP JACKSON DO Mar 15, 2018 08:07
[2018-03-15] MEDS: RT-ALBUTEROL/IPRATROPIUM 3 ML (DUONEB) VIAL INH SCH ×5 (07:25→23:27)
[2018-03-15 08:00] VITALS: BP 113/65
--- NOTE | 2018-03-15 08:15 | Diagnostic Imaging Report ---
INDICATION: Hypoxemia Portable chest 3:28 AM. Comparison is made to study from 03/14/2018. There is a 3.2 cm well-circumscribed round mass at the right lung base. There is complete opacification of left hemithorax. Left subclavian Port-A-Cath tip projects over the SVC. IMPRESSION: There continues to be complete opacification of left hemithorax. Right lower lung mass is also unchanged. Dictated by: Dictated on workstation # [id number]
[2018-03-15] MEDS: RT-ALBUTEROL/IPRATROPIUM 3 ML (DUONEB) VIAL INH PRN (08:55)
[2018-03-15] MEDS: ENOXAPARIN 30 MG/0.3 ML (LOVENOX) SYR SC SCH (10:09)
[2018-03-15] MEDS: ACETAMINOPHEN 500 MG TAB (TYLENOL) PO PRN ×2 (10:09→22:57)
--- NOTE | 2018-03-15 10:15 | Progress Note-Hospitalist ---
SANTI HUMPHRIES DO 03/15/18 1015: Subjective HPI/CC On Admission Date Seen by Provider: Mar 15, 2018 Time Seen by Provider: 09:30 Subjective/Events-last exam Patient took multiple meds and enemas and no production so will consult Dr [facility] in process of discussing Dr Bush consultation is appreciated Focused Exam Lactate Level 03/14/18 06:50: Lactic Acid Level 1.19 Objective Exam Vital Signs Vital Signs Date Time Temp Pulse Resp B/P (MAP) Pulse Ox O2 Delivery O2 Flow Rate FiO2 03/16/18 02:55 97 High Flow N/C 7.00 03/16/18 00:24 97.8 100 20 139/78 (98) 03/15/18 08:55 85 Capillary Refill : Less Than 3 SecondsLess Than 3 Seconds General Appearance: WD/WN, Chronically ill, Cachetic, Moderate Distress, Thin Respiratory: Chest Non Tender, Accessory Muscle Use, Decreased Breath Sounds, Respiratory Distress, Wheezing Cardiovascular: Regular Rate, Rhythm, No Edema, No Gallop, No JVD, No Murmur, Normal Peripheral Pulses Neurologic/Psychiatric: Alert, Oriented x3, No Motor/Sensory Deficits, Normal Mood/Affect Results/Procedures Lab Laboratory Tests 03/15/18 05:27 Patient resulted labs reviewed. Assessment/Plan Assessment and Plan Assess & Plan/Chief Complaint Assessment: Pneumonia Lung cancer with advanced status Severe constipation requiring surgery consultation Anemia Cachexia Poor prognosis Diagnosis/Problems Diagnosis/Problems (1) Pneumonia involving left lung Status: Acute Qualifiers: Pneumonia type: due to unspecified organism Lung location: unspecified part of lung Qualified Codes: J18.9 - Pneumonia, unspecified organism (2) Leukocytosis Status: Acute Qualifiers: Leukocytosis type: leukemoid reaction Qualified Codes: D72.823 - Leukemoid reaction (3) Low BMI Status: Chronic (4) Lung cancer Status: Acute Qualifiers: Laterality: left Lung location: overlapping sites Qualified Codes: C34.82 - Malignant neoplasm of overlapping sites of left bronchus and lung (5) Stomach cancer Status: Chronic Qualifiers: Malignant neoplasm of stomach location: unspecified location Qualified Codes: C16.9 - Malignant neoplasm of stomach, unspecified (6) Normocytic anemia Status: Chronic (7) DVT prophylaxis Status: Acute (8) Constipation Status: Acute Qualifiers: Constipation type: unspecified constipation type Qualified Codes: K59.00 - Constipation, unspecified (9) Full code status Status: Acute (10) Metastatic disease Status: Acute Clinical Quality Measures DVT/VTE Risk/Contraindication: Risk Factor Score Per Nursin RFS Level Per Nursing on Admit: 4+=Very High JUAN PABLO NEVAREZ MED STUDENT 03/15/18 1131: Subjective Subjective/Events-last exam Pt is very SOB today, difficult for him to speak Very uncomfortable due to constipation- pt has failed 3 enemas and mag citrate Continuing vapotherm 85% Receptive to the idea of hospice today Objective Exam General Appearance: Chronically ill, Cachetic, Severe Distress, Thin Respiratory: Respiratory Distress Cardiovascular: Regular Rate, Rhythm Extremity: No Pedal Edema Neurologic/Psychiatric: Alert, Oriented x3 Skin: Normal Color Assessment/Plan Assessment and Plan Assess & Plan/Chief Complaint Assessment: Left lung pneumonia Constipation Gastric + pulmonary cancer Respiratory failure Anemia Cachexia Plan: Surg consult for constipation Continue current treatment Diagnosis/Problems Diagnosis/Problems (1) Pneumonia involving left lung Status: Acute Qualifiers: Pneumonia type: due to unspecified organism Lung location: unspecified part of lung Qualified Codes: J18.9 - Pneumonia, unspecified organism (2) Leukocytosis Status: Acute Qualifiers: Leukocytosis type: leukemoid reaction Qualified Codes: D72.823 - Leukemoid reaction (3) Low BMI Status: Chronic (4) Lung cancer Status: Acute Qualifiers: Laterality: left Lung location: overlapping sites Qualified Codes: C34.82 - Malignant neoplasm of overlapping sites of left bronchus and lung (5) Stomach cancer Status: Chronic Qualifiers: Malignant neoplasm of stomach location: unspecified location Qualified Codes: C16.9 - Malignant neoplasm of stomach, unspecified (6) Normocytic anemia Status: Chronic (7) DVT prophylaxis Status: Acute SANTI HUMPHRIES DO Mar 15, 2018 10:15 JUAN PABLO NEVAREZ MED STUDENT Mar 15, 2018 11:31
[2018-03-15 12:00] VITALS: BP 122/66
[2018-03-15] MEDS: SENNA W/DOCUSATE (SENOKOT S) TABLET PO SCH ×2 (13:13→20:02)
[2018-03-15] MEDS ORDERED: METHYLNALTREXONE 12 MG/0.6 ML (RELISTOR) VIAL SQ NR (14:30)
--- NOTE | 2018-03-15 14:39 | Oncology Progress Note ---
Subjective Date Seen by a Provider: Mar 15, 2018 Time Seen by a Provider: 14:31 Subjective/Events-last exam Pt was admitted over the weekend for left side pneumonia with completely white out left side and received IV antibiotics. He is feeling somewhat better today but complaining of terrible constipation and failed the conventional treatment for constipation. He lost his voice since the admission. No fever Data Review Labs Laboratory Tests 03/15/18 05:27 Laboratory Tests 03/12/18 15:44: 03/12/18 19:55: 03/13/18 10:30: White Blood Count 17.1H, Red Blood Count 3.74L, Hemoglobin 9.7L, Hematocrit 31L , Red Cell Distribution Width 16.9H, Neutrophils (%) (Auto) 87H, Lymphocytes (% ) (Auto) 5L, Neutrophils # (Auto) 14.9H, Lymphocytes # (Auto) 0.8L, Monocytes # (Auto) 1.4H, Glucose Level 111H 03/14/18 05:17: White Blood Count 18.8H, Red Blood Count 3.78L, Hemoglobin 10.0L, Hematocrit 31L , Red Cell Distribution Width 17.1H, Neutrophils (%) (Auto) 87H, Lymphocytes (% ) (Auto) 5L, Neutrophils # (Auto) 16.3H, Lymphocytes # (Auto) 0.9L, Monocytes # (Auto) 1.5H, Glucose Level 131H 03/14/18 06:50: 03/15/18 05:27: White Blood Count 17.0H, Red Blood Count 3.37L, Hemoglobin 8.8L, Hematocrit 28L , Red Cell Distribution Width 16.8H, Neutrophils (%) (Auto) 86H, Lymphocytes (% ) (Auto) 5L, Neutrophils # (Auto) 14.5H, Lymphocytes # (Auto) 0.8L, Monocytes # (Auto) 1.6H Laboratory Tests 03/15/18 05:27 Physical Exam Vital Signs Vital Signs - First Documented 03/11/18 03/11/18 08:47 13:32 Temp 94.8 Pulse 117 Resp 22 B/P (MAP) 116/83 (94) Pulse Ox 69 O2 Delivery Room Air O2 Flow Rate 10.00 FiO2 45 Capillary Refill : Less Than 3 SecondsLess Than 3 Seconds Height, Weight, BMI Height: 5'9.00" Weight: 119lbs. 4.0oz. 54.310704di; 16.9 BMI Method:Stated General Appearance: No Apparent Distress, Thin HEENT: PERRL/EOMI Neck: Non Tender, Supple Respiratory: No Accessory Muscle Use, No Respiratory Distress, Crackles Cardiovascular: Regular Rate, Rhythm, Tachycardia Gastrointestinal: Non Tender, Soft Extremity: Non Tender, No Calf Tenderness, No Pedal Edema Neurologic/Psychiatric: Alert, Oriented x3 Focused Exam Lactate Level 03/14/18 06:50: Lactic Acid Level 1.19 Impression & Plan Impression & Plan A/P: 1. A 68-year-old male admitted with left upper lobe pneumonia on IV antibiotics day 3. Clinically improving. 2. Metastatic poorly differentiated carcinoma involving lungs, stomach and adrenal gland. Pt was on palliative chemotherapy with carboplatin and paclitaxel regimen x2 cycles with the last treatment 5 weeks ago. We will hold off the chemo for now. 3. Severe constipation, will try Restoril. 4. Bone mets and pain, continue current pain medication. 5. Continue respiratory therapy and IVF support 6. Anemia, chronic illness and IVF dilution. Closely monitoring for now. Clinical Quality Measures DVT/VTE Risk/Contraindication: Risk Factor Score Per Nursin RFS Level Per Nursing on Admit: 4+=Very High SHALONDA GAITAN MD Mar 15, 2018 14:39
[2018-03-15 15:45] VITALS: BP 127/66
--- NOTE | 2018-03-15 19:50 | CONSULTATION REPORT ---
DATE OF SERVICE: 03/15/2018 ATTENDING PRIMARY CARE PHYSICIAN: Dr. Escobar. ADMITTING PHYSICIAN: Dr. Hill. HISTORY OF PRESENT ILLNESS: The patient is a 68-year-old male admitted for shortness of breath. This gentleman was recently diagnosed with most likely metastatic lung cancer, which has spread to the stomach as well as the adrenal gland. He has been seen by oncology and was started on chemotherapeutic regimen; however, he did not tolerate this well. He was admitted for shortness of breath and was found to have a left-sided pneumonia, which did require significant oxygen supplementation. Over time and antibiotics as well as respiratory treatments, he has improved. He reports that he has not had a bowel movement since admission. He states that he normally has a bowel movement every day. He reports that he has taken narcotic pain medications sparingly; however, do not like the effects of constipation and lower gastrointestinal motility and tries to avoid them majority of the time. He reports that when he did have his initial symptoms approximately one week ago, he did take some oral pain medication. He states that he started to pass gas now. He still has some abdominal distention; however, does have some bowel sounds after taking magnesium citrate as well as having a enema. PAST MEDICAL HISTORY: States no previous past medical history. PAST SURGICAL HISTORY: None. ALLERGIES: CODEINE. MEDICATIONS: None. SOCIAL HISTORY: Positive for previous smoking [id number], quit in 09/2017. Previous alcohol. States that he would drink 2 times a week, approximately 6 drinks per time. FAMILY HISTORY: Sister with lung cancer. VITAL SIGNS: Temperature 97.8, blood pressure 127/66, pulse 109, respirations 18, pulse ox 95% on 8 liters nasal cannula. REVIEW OF SYSTEMS: Well-nourished thin appearing male in no acute distress. He is not experiencing any shortness of breath or difficulty breathing with his supplemental oxygen via nasal cannula. Minimal cough and no sputum production. No hemoptysis. No chest pain, palpitations, diaphoresis. No nausea, vomiting. Did pass flatus earlier today and does have bowel sounds; however, has not had a bowel movement for the past 4 to 5 days. No known red blood per rectum nor any dark tarry stools. No fever, chills, no recent inadvertent weight loss. All other review of systems negative. PHYSICAL EXAMINATION: CHEST: Scattered expiratory wheezes and decreased breath sounds bilaterally. HEART: Regular, no murmurs. EXTREMITIES: No lower extremity edema, negative Homans sign. HEENT: No scleral icterus. NECK: No cervical lymphadenopathy. ABDOMEN: Soft, nontender, nondistended. SKIN: Warm, dry. LABORATORY DATA: WBC 17.0, hemoglobin 8.8, hematocrit 28, platelets 288, BUN 10, creatinine 0.83, calcium is 9.3. ASSESSMENT AND PLAN: A 68-year-old male with metastatic lung cancer. It appears that he has constipation most likely secondary to slowed gastrointestinal motility from narcotic use. He has taken some stool softeners as well as had an enema and has done one 10 fluid ounce bottle of magnesium citrate; however, we feel that he needs to take more of a stronger laxative. He does not want to take the full dosing of magnesium citrate, but is willing to take smaller doses, which would be approximately 100 mL t.i.d. until he does have a significant bowel movement, which we will start. We also recommend ambulation. This evening, he is passing flatus and does feel better and does feel hungrier and is tolerating food and we feel that he will have a bowel movement over time. Job ID: [id number] DocumentID: [id number] Dictated Date: 03/15/2018 18:46:48 [employer] Work[employer] Date: 03/15/2018 19:49:55 Dictated By: SINAN HIGUERA MD [facility]
[2018-03-15] MEDS: MAGNESIUM CITRATE 300 ML BTL PO SCH (20:02)
[2018-03-15 20:25] VITALS: BP 123/71
[2018-03-15] MEDS ORDERED: MAGNESIUM CITRATE 300 ML BTL PO ONE (21:00)
[2018-03-16 00:24] VITALS: BP 139/78
[2018-03-16] MEDS: PIPERACILLIN/TAZO 4.5 GM/NS 100 ML IV SCH ×6 (01:42→18:09)
[2018-03-16] MEDS: RT-ALBUTEROL/IPRATROPIUM 3 ML (DUONEB) VIAL INH SCH ×6 (02:55→22:40)
[2018-03-16 04:00] VITALS: BP 132/77
--- NOTE | 2018-03-16 07:22 | Pulmonary Progress Note ---
Subjective Date Seen by a Provider: Mar 16, 2018 Time Seen by a Provider: 07:20 Subjective/Events-last exam Patient reports no acute events overnight. His SOB is improved today and he is maintaining oxygenation on only 2L via nasal canula. He expresses concern that he still has not had a BM, but his appetite was improved yesterday and he was able to eat a little and keep the food down. Sepsis Event Evaluation Height, Weight, BMI Height: 5'9.00" Weight: 123lbs. 1.6oz. 55.569379iu; 16.9 BMI Method:Stated Focused Exam Lactate Level 03/14/18 06:50: Lactic Acid Level 1.19 Respiratory: Chest Non Tender, Decreased Breath Sounds (L) Cardiovascular: Regular Rate, Rhythm, No Murmur Skin: normal color, warm/dry Exam Exam Vital Signs Date Time Temp Pulse Resp B/P (MAP) Pulse Ox O2 Delivery O2 Flow Rate FiO2 03/16/18 06:37 97 High Flow N/C 5.00 03/16/18 04:00 98.1 90 18 132/77 (95) 94 Nasal Cannula 5.00 03/16/18 02:55 97 High Flow N/C 7.00 03/16/18 00:24 97.8 100 20 139/78 (98) 95 Nasal Cannula 7.00 03/15/18 23:27 95 High Flow N/C 7.00 03/15/18 20:25 98.6 110 22 123/71 (88) 95 Nasal Cannula 7.00 03/15/18 20:00 95 High Flow N/C 8.00 03/15/18 19:28 98 High Flow N/C 8.00 03/15/18 15:45 97.8 109 18 127/66 (86) 95 Nasal Cannula 8.00 03/15/18 14:35 96 High Flow N/C 10.00 03/15/18 12:00 96.7 113 20 122/66 (84) 99 Nasal Cannula 10.00 03/15/18 08:55 98 Vapotherm 10.00 85 03/15/18 08:00 97.8 114 20 113/65 (81) 99 Vapotherm 10.00 03/15/18 08:00 99 High Flow N/C 10.00 I & O 03/16/18 07:00 Intake Total 2210 ml Output Total 775 ml Balance 1435 ml Height & Weight Height: 5'9.00" Weight: 123lbs. 1.6oz. 55.562593kh; 16.9 BMI Method:Stated General Appearance: No Apparent Distress, Chronically ill, Cachetic, Thin HEENT: PERRL/EOMI Neck: Non Tender, Supple Respiratory: Chest Non Tender, Decreased Breath Sounds, Respiratory Distress, Other (on 2L nc) Cardiovascular: Regular Rate, Rhythm, No Edema, No Murmur Capillary Refill: Less Than 3 Seconds Gastrointestinal: non tender, soft Extremity: Non Tender, No Calf Tenderness, No Pedal Edema Neurologic/Psychiatric: Alert, Oriented x3, Normal Mood/Affect Skin: Normal Color Results Lab Laboratory Tests 03/15/18 05:27 Assessment/Plan Assessment/Plan Acute on chronic respiratory failure -pt is currently on 2L O2 via nasal canula -O2 sats are improved (97 this morning) -SOB is improved since yesterday End stage metastatic left lung cancer involving stomach, and adrenal glands -Has been undergoing palative chemotherapy, due for chemotherapy treatment the day of admission Constipation -No change with enema, magnesium citrate, or senna -Appetite improved yesterday and he was able to eat some pneumonia with opacification of left lung -Continue Zosyn -Mayes cultures are negative thus far -Check CT of chest with contrast -CT showed atelectasis, and a left hilar mass compressing the bronchi and left main pulmonary artery Pt's overall prognosis is poor. Pt's CT scan shows progression of lung cancer bilateral causing complete opacification of left lung with compression of the LLL bronchus and pulmonary artery . I discussed hospice care with patient and he is very interested. He wants more information on home hospice. I will consult hospice for education. He reports that his daughter plans to visit today during business hours. MAREK ARCHER MED STUDENT Mar 16, 2018 07:22
[2018-03-16 08:00] VITALS: BP 128/66
[2018-03-16] MEDS: MAGNESIUM CITRATE 300 ML BTL PO SCH ×3 (09:22→20:09)
[2018-03-16] MEDS: SENNA W/DOCUSATE (SENOKOT S) TABLET PO SCH ×2 (09:22→20:08)
[2018-03-16] MEDS: ENOXAPARIN 30 MG/0.3 ML (LOVENOX) SYR SC SCH (09:23)
--- NOTE | 2018-03-16 10:12 | Progress Note-Hospitalist ---
SANTI HUMPHRIES DO 03/16/18 1012: Subjective HPI/CC On Admission Date Seen by Provider: Mar 16, 2018 Time Seen by Provider: 09:30 Subjective/Events-last exam Mag citrate given three times a day without results No Nausea Dr Hamlin consultation is appreciated Reviewed abdominal xray and it has possible obstruction Maintained on close monitoring Very guarded prognosis Review of Systems Gastrointestinal: Constipation Focused Exam Lactate Level 03/14/18 06:50: Lactic Acid Level 1.19 Objective Exam Vital Signs Vital Signs Date Time Temp Pulse Resp B/P (MAP) Pulse Ox O2 Delivery O2 Flow Rate FiO2 03/16/18 16:10 98.6 114 22 131/73 (92) 93 Nasal Cannula 4.00 03/15/18 08:55 85 Capillary Refill : Less Than 3 SecondsLess Than 3 Seconds General Appearance: No Apparent Distress, WD/WN, Chronically ill, Cachetic, Moderate Distress Respiratory: Chest Non Tender, Accessory Muscle Use, Decreased Breath Sounds Cardiovascular: Regular Rate, Rhythm, No Edema, No Gallop, No JVD, No Murmur, Normal Peripheral Pulses Gastrointestinal: Normal Bowel Sounds, Non Tender, Soft Neurologic/Psychiatric: Alert, Oriented x3, No Motor/Sensory Deficits, Normal Mood/Affect Results/Procedures Lab Patient resulted labs reviewed. Assessment/Plan Assessment and Plan Assess & Plan/Chief Complaint Assessment: Pneumonia Lung cancer with advanced status Severe constipation requiring surgery consultation and xray reveals possible obstruction Anemia Cachexia Poor prognosis Plan: Appreciate DR Hamlin consultation Guarded prognosis Diagnosis/Problems Diagnosis/Problems (1) Pneumonia involving left lung Status: Acute Qualifiers: Pneumonia type: due to unspecified organism Lung location: unspecified part of lung Qualified Codes: J18.9 - Pneumonia, unspecified organism (2) Leukocytosis Status: Acute Qualifiers: Leukocytosis type: leukemoid reaction Qualified Codes: D72.823 - Leukemoid reaction (3) Low BMI Status: Chronic (4) Lung cancer Status: Acute Qualifiers: Laterality: left Lung location: overlapping sites Qualified Codes: C34.82 - Malignant neoplasm of overlapping sites of left bronchus and lung (5) Stomach cancer Status: Chronic Qualifiers: Malignant neoplasm of stomach location: unspecified location Qualified Codes: C16.9 - Malignant neoplasm of stomach, unspecified (6) Normocytic anemia Status: Chronic (7) DVT prophylaxis Status: Acute (8) Constipation Status: Acute Qualifiers: Constipation type: unspecified constipation type Qualified Codes: K59.00 - Constipation, unspecified (9) Full code status Status: Acute (10) Metastatic disease Status: Acute Clinical Quality Measures DVT/VTE Risk/Contraindication: Risk Factor Score Per Nursin RFS Level Per Nursing on Admit: 4+=Very High JUAN PABLO NEVAREZ MED STUDENT 03/16/18 1103: Subjective Subjective/Events-last exam Pt has not had a BM, but is beginning to pass gas and feel his belly "rumble' Slight improvement in his dyspnea, but still very severe Today pt reports that he would like to continue aggressive treatment Denies any pain today Objective Exam General Appearance: Chronically ill, Cachetic, Moderate Distress, Thin Respiratory: Chest Non Tender, Accessory Muscle Use, Decreased Breath Sounds Cardiovascular: Regular Rate, Rhythm, No Murmur Extremity: Normal Inspection Neurologic/Psychiatric: Alert, Oriented x3 Skin: Normal Color, Warm/Dry Assessment/Plan Assessment and Plan Assess & Plan/Chief Complaint Assessment: Pneumonia Severe constipation Advanced lung cancer Anemia Cachexia Poor prognosis Plan: Continue current treatment plan Diagnosis/Problems Diagnosis/Problems (1) Pneumonia involving left lung Status: Acute Qualifiers: Pneumonia type: due to unspecified organism Lung location: unspecified part of lung Qualified Codes: J18.9 - Pneumonia, unspecified organism (2) Constipation Status: Acute Qualifiers: Constipation type: unspecified constipation type Qualified Codes: K59.00 - Constipation, unspecified (3) Lung cancer Status: Acute Qualifiers: Laterality: left Lung location: overlapping sites Qualified Codes: C34.82 - Malignant neoplasm of overlapping sites of left bronchus and lung (4) Stomach cancer Status: Chronic Qualifiers: Malignant neoplasm of stomach location: unspecified location Qualified Codes: C16.9 - Malignant neoplasm of stomach, unspecified (5) Normocytic anemia Status: Chronic (6) Low BMI Status: Chronic (7) Metastatic disease Status: Acute SANTI HUMPHRIES DO Mar 16, 2018 10:12 JUAN PABLO NEVAREZ MED STUDENT Mar 16, 2018 11:03
[2018-03-16 11:31] VITALS: BP 123/64
[2018-03-16] MEDS ORDERED: DICYCLOMINE 10 MG (BENTYL) CAP PO PRN (13:15)
--- NOTE | 2018-03-16 14:24 | Diagnostic Imaging Report ---
INDICATION: Pain. FINDINGS: There are differential air/fluid levels on the upright view, suspicious for bowel obstruction. No free air. There is left chest whiteout and mass projecting over the right lower lung measuring 3.5 cm. IMPRESSION: Suspicion for bowel obstruction with dilated loops of bowel showing differential air/fluid levels. No free gas. Right lower lung mass and left chest whiteout, unchanged from previous chest radiographs. Dictated by: Dictated on workstation # [id number]
[2018-03-16] MEDS: RT-ALBUTEROL/IPRATROPIUM 3 ML (DUONEB) VIAL INH PRN (15:45)
[2018-03-16] MEDS: aCETylcysteine 20% (MUCOMYST) 30ML SOLN VIAL INH SCH (15:46)
[2018-03-16 16:10] VITALS: BP 131/73
--- NOTE | 2018-03-16 16:18 | Progress Note (SOAP) ---
Subjective Date Seen by a Provider: Mar 16, 2018 Time Seen by a Provider: 16:00 Subjective/Events-last exam doing ok. states mg citrate gives intermittent crampy abd pain. passing flatus but no significant BM yet. no peritoneal signs. Focused Exam Lactate Level 03/14/18 06:50: Lactic Acid Level 1.19 Objective Exam Vital Signs Date Time Temp Pulse Resp B/P (MAP) Pulse Ox O2 Delivery O2 Flow Rate FiO2 03/16/18 15:47 98 High Flow N/C 4.00 03/16/18 14:09 94 High Flow N/C 5.00 03/16/18 11:31 98.3 109 18 123/64 (83) 93 Nasal Cannula 5.00 03/16/18 10:36 95 High Flow N/C 5.00 03/16/18 08:00 98.5 102 20 128/66 (86) 96 Nasal Cannula 5.00 03/16/18 08:00 95 High Flow N/C 8.00 03/16/18 06:37 97 High Flow N/C 5.00 03/16/18 04:00 98.1 90 18 132/77 (95) 94 Nasal Cannula 5.00 03/16/18 02:55 97 High Flow N/C 7.00 03/16/18 00:24 97.8 100 20 139/78 (98) 95 Nasal Cannula 7.00 03/15/18 23:27 95 High Flow N/C 7.00 03/15/18 20:25 98.6 110 22 123/71 (88) 95 Nasal Cannula 7.00 03/15/18 20:00 95 High Flow N/C 8.00 03/15/18 19:28 98 High Flow N/C 8.00 I & O 03/16/18 07:00 Intake Total 2210 ml Output Total 775 ml Balance 1435 ml Capillary Refill : Less Than 3 SecondsLess Than 3 Seconds General Appearance: No Apparent Distress HEENT: PERRL/EOMI Neck: Full Range of Motion Respiratory: Decreased Breath Sounds, Rhonci Cardiovascular: Regular Rate, Rhythm Gastrointestinal: normal bowel sounds, soft Extremity: Normal Capillary Refill Neurologic/Psychiatric: Alert, Oriented x3 Skin: Normal Color Lymphatic: No Adenopathy Results Lab Microbiology 03/11/18 Blood Culture - Final, Complete No growth 03/11/18 MRSA Screen - Final, Complete MRSA not isolated Assessment/Plan Assessment/Plan Assess & Plan/Chief Complaint metatstatic adenoca, 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 bentyl for visceral pain. cont small doses mg citrate until significant BM. Clinical Quality Measures DVT/VTE Risk/Contraindication: Risk Factor Score Per Nursin RFS Level Per Nursing on Admit: 4+=Very High SINAN HIGUERA MD Mar 16, 2018 16:18
--- NOTE | 2018-03-16 16:33 | Oncology Progress Note ---
Subjective Date Seen by a Provider: Mar 16, 2018 Time Seen by a Provider: 16:28 Subjective/Events-last exam Pt stated that he is feeling better but frustrated that he still has not have bowel movement despite of Relister injection, Mg Milk and enema. Abd Xray showed possible early stage of bowel obstruction? Dr Hamlin was consulted. His voice and speech is better today. His sister is working to get him to [facility] in [place]. He still wants to get everything done. He had two cycles of chemo so far. Last dose was 5 weeks ago. He was supposed to get his 3rd cycle a week ago but he had pneumonia. Data Review Labs Laboratory Tests 03/15/18 05:27: White Blood Count 17.0H, Red Blood Count 3.37L, Hemoglobin 8.8L, Hematocrit 28L , Red Cell Distribution Width 16.8H, Neutrophils (%) (Auto) 86H, Lymphocytes (% ) (Auto) 5L, Neutrophils # (Auto) 14.5H, Lymphocytes # (Auto) 0.8L, Monocytes # (Auto) 1.6H Physical Exam Vital Signs Vital Signs - First Documented 03/11/18 03/11/18 08:47 13:32 Temp 94.8 Pulse 117 Resp 22 B/P (MAP) 116/83 (94) Pulse Ox 69 O2 Delivery Room Air O2 Flow Rate 10.00 FiO2 45 Capillary Refill : Less Than 3 SecondsLess Than 3 Seconds Height, Weight, BMI Height: 5'9.00" Weight: 123lbs. 1.6oz. 55.195652ad; 16.9 BMI Method:Stated General Appearance: No Apparent Distress HEENT: PERRL/EOMI Neck: Non Tender, Supple Respiratory: No Accessory Muscle Use, No Respiratory Distress, Crackles Cardiovascular: Regular Rate, Rhythm Gastrointestinal: Non Tender, Soft Extremity: Non Tender, No Pedal Edema Focused Exam Lactate Level Impression & Plan Impression & Plan A/P: 1. A 68-year-old male admitted with left side pneumonia on IV antibiotics day 4. Clinically slowly improving. 2. Metastatic poorly differentiated carcinoma involving lungs, stomach and adrenal gland. Pt was on palliative chemotherapy with carboplatin and paclitaxel regimen x2 cycles with the last treatment 5 weeks ago. We will hold off the chemo for now. Family wants to get him to cancer treatment [place] [facility] in [place]. 3. Severe constipation, not responding to Relistor, mg citrate, stool softener and enema. Now abd Xray showed possible early stage of bowel obstruction. If still no improvement by tomorrow, we may need to have CT of abdomen for a detailed evaluation. Dr. Hamlin is consulted. 4. Bone mets and pain, continue current pain medication. 5. Continue respiratory therapy and IVF support 6. Anemia, chronic illness and IVF dilution. Closely monitoring for now. Clinical Quality Measures DVT/VTE Risk/Contraindication: Risk Factor Score Per Nursin RFS Level Per Nursing on Admit: 4+=Very High SHALONDA GAITAN MD Mar 16, 2018 16:33
[2018-03-16 19:55] VITALS: BP 128/69
[2018-03-16] MEDS: ACETAMINOPHEN 500 MG TAB (TYLENOL) PO PRN (22:41)
[2018-03-17 00:07] VITALS: BP 131/72
[2018-03-17] MEDS: PIPERACILLIN/TAZO 4.5 GM/NS 100 ML IV SCH ×6 (01:08→17:05)
[2018-03-17] MEDS: RT-ALBUTEROL/IPRATROPIUM 3 ML (DUONEB) VIAL INH SCH ×6 (02:30→21:08)
[2018-03-17] MEDS: aCETylcysteine 20% (MUCOMYST) 30ML SOLN VIAL INH SCH ×2 (02:30→06:46)
[2018-03-17 04:02] VITALS: BP 137/70
--- NOTE | 2018-03-17 07:16 | Pulmonary Progress Note ---
MAREK ARCHER MED STUDENT 03/17/18 0716: Subjective Date Seen by a Provider: Mar 17, 2018 Time Seen by a Provider: 07:14 Subjective/Events-last exam Patient reports he had a BM this morning for the first time in 6 days and this is a major relief. He is still SOB, requiring O2 via nc, and his voice is hoarse. Sepsis Event Evaluation Height, Weight, BMI Height: 5'9.00" Weight: 127lbs. 2.0oz. 57.503200bc; 16.9 BMI Method:Stated Focused Exam Respiratory: Chest Non Tender, Decreased Breath Sounds Cardiovascular: No Murmur, Tachycardia Skin: normal color, warm/dry Exam Exam Vital Signs Date Time Temp Pulse Resp B/P (MAP) Pulse Ox O2 Delivery O2 Flow Rate FiO2 03/17/18 06:46 92 High Flow N/C 5.00 03/17/18 04:02 97.8 106 16 137/70 (92) 92 Nasal Cannula 5.00 03/17/18 02:30 93 High Flow N/C 5.00 03/17/18 00:07 97.7 114 20 131/72 (91) 93 Nasal Cannula 5.00 03/16/18 22:40 85 High Flow N/C 4.00 03/16/18 20:00 96 High Flow N/C 5.00 03/16/18 19:55 98.9 115 20 128/69 (88) 92 Nasal Cannula 4.00 03/16/18 19:07 91 High Flow N/C 4.00 03/16/18 16:10 98.6 114 22 131/73 (92) 93 Nasal Cannula 4.00 03/16/18 15:47 98 High Flow N/C 4.00 03/16/18 14:09 94 High Flow N/C 5.00 03/16/18 11:31 98.3 109 18 123/64 (83) 93 Nasal Cannula 5.00 03/16/18 10:36 95 High Flow N/C 5.00 03/16/18 08:00 98.5 102 20 128/66 (86) 96 Nasal Cannula 5.00 03/16/18 08:00 95 High Flow N/C 8.00 I & O 03/17/18 07:00 Intake Total 1000 ml Output Total 1100 ml Balance -100 ml Height & Weight Height: 5'9.00" Weight: 127lbs. 2.0oz. 57.236006bw; 16.9 BMI Method:Stated General Appearance: No Apparent Distress, WD/WN, Chronically ill, Cachetic, Mild Distress HEENT: PERRL/EOMI Neck: Non Tender, Supple Respiratory: Chest Non Tender, Accessory Muscle Use, Decreased Breath Sounds, Other (on 5l HFNC) Cardiovascular: No Edema, No Gallop, No JVD, No Murmur, Normal Peripheral Pulses, Tachycardia Capillary Refill: Less Than 3 Seconds Gastrointestinal: normal bowel sounds, soft Extremity: Non Tender, No Pedal Edema Neurologic/Psychiatric: Alert, Oriented x3, Normal Mood/Affect Skin: Normal Color Lymphatic: No Adenopathy Assessment/Plan Assessment/Plan Acute on chronic respiratory failure -pt is currently on 5L O2 via HFNC -O2 sats are 92-93 this am -SOB unchanged End stage metastatic left lung cancer involving stomach, and adrenal glands -Has been undergoing palative chemotherapy, due for chemotherapy treatment the day of admission Constipation -Resolved, had a BM this morning providing much relief pneumonia with opacification of left lung -Continue Zosyn -Mayes cultures are negative -Check CT of chest with contrast -CT showed atelectasis, and a left hilar mass compressing the bronchi and left main pulmonary artery Pt's overall prognosis is poor. Pt's CT scan shows progression of lung cancer bilateral causing complete opacification of left lung with compression of the LLL bronchus and pulmonary artery . I discussed hospice care with patient and he is very interested. He said he is still looking into hospice and considering the different options. PRADIP JACKSON DO 03/17/18 1615: Subjective Time Seen by a Provider: 13:20 Subjective/Events-last exam Pt is feeling slightly better. c/o of hoarse voice. Exam Exam General Appearance: No Apparent Distress, WD/WN, Chronically ill, Cachetic, Mild Distress HEENT: PERRL/EOMI Neck: Non Tender, Supple Respiratory: Chest Non Tender, Accessory Muscle Use, Decreased Breath Sounds, Other (on 5l HFNC) Cardiovascular: No Edema, No Gallop, No JVD, No Murmur, Normal Peripheral Pulses, Tachycardia Capillary Refill: Less Than 3 Seconds Gastrointestinal: normal bowel sounds, soft Extremity: Non Tender, No Pedal Edema Neurologic/Psychiatric: Alert, Oriented x3, Normal Mood/Affect Skin: Normal Color Lymphatic: No Adenopathy Assessment/Plan Assessment/Plan Acute on chronic respiratory failure -pt is currently on 5L O2 via HFNC -O2 sats are 92-93 this am -SOB unchanged 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 Pt's CT scan shows progression of lung cancer bilateral causing complete opacification of left lung with compression of the LLL bronchus and pulmonary artery . Charles Kent RN, and myself discussed with patient his current condition and possible options. Pt wants to be discharged with hospice to [facility]. He is requesting we call his sister to explain to her whats going on. Up date 1640: I called and discussed patient's care with his sister Nava. I answered all questions and concerns. I explained to her patients current condition and prognosis. I explained to her patient has chose to go home with hospice. She is in agreement with that plan of care. Total time spent with patient, medical staff, and family today is over 120min. MAREK ARCHER MED STUDENT Mar 17, 2018 07:16 PRADIP JACKSON DO Mar 17, 2018 16:15
[2018-03-17 08:00] VITALS: BP 137/74
[2018-03-17] MEDS: MAGNESIUM CITRATE 300 ML BTL PO SCH ×3 (09:40→20:35)
[2018-03-17] MEDS: SENNA W/DOCUSATE (SENOKOT S) TABLET PO SCH ×2 (09:40→20:35)
[2018-03-17] MEDS: ENOXAPARIN 30 MG/0.3 ML (LOVENOX) SYR SC SCH (10:29)
--- NOTE | 2018-03-17 10:32 | Progress Note-Hospitalist ---
SANTI HUMPHRIES DO 03/17/18 1032: Subjective HPI/CC On Admission Date Seen by Provider: Mar 17, 2018 Time Seen by Provider: 09:45 Subjective/Events-last exam Pt had BM yesterday and feels like he has evacuated Wants to go home rather than [facility] After patient was seen this morning Dr Hawley and Dr Saucedo spoke to the patient and now he has opted with Hospice and to go to [facility] Pt requiring 7 liters of O2 Review of Systems General: Fatigue Pulmonary: Dyspnea Objective Exam Vital Signs Vital Signs Date Time Temp Pulse Resp B/P (MAP) Pulse Ox O2 Delivery O2 Flow Rate FiO2 03/17/18 16:35 99.2 106 20 131/71 (91) 94 Nasal Cannula 7.00 03/15/18 08:55 85 Capillary Refill : Less Than 3 SecondsLess Than 3 Seconds General Appearance: Anxious, Chronically ill, Cachetic, Severe Distress Respiratory: Accessory Muscle Use, Decreased Breath Sounds, Respiratory Distress, Wheezing Cardiovascular: Regular Rate, Rhythm, No Edema, No Gallop, No JVD, No Murmur, Normal Peripheral Pulses Results/Procedures Lab Patient resulted labs reviewed. Assessment/Plan Assessment and Plan Assess & Plan/Chief Complaint Assessment: Pneumonia Lung cancer with advanced status s/p severe constipation requiring surgery consultation now resolved Anemia Cachexia Poor prognosis Plan: Appreciate DR Hamlin consultation Guarded prognosis Hospice and placement tomorrow Diagnosis/Problems Diagnosis/Problems (1) Pneumonia involving left lung Status: Acute Qualifiers: Pneumonia type: due to unspecified organism Lung location: unspecified part of lung Qualified Codes: J18.9 - Pneumonia, unspecified organism (2) Leukocytosis Status: Acute Qualifiers: Leukocytosis type: leukemoid reaction Qualified Codes: D72.823 - Leukemoid reaction (3) Low BMI Status: Chronic (4) Lung cancer Status: Acute Qualifiers: Laterality: left Lung location: overlapping sites Qualified Codes: C34.82 - Malignant neoplasm of overlapping sites of left bronchus and lung (5) Stomach cancer Status: Chronic Qualifiers: Malignant neoplasm of stomach location: unspecified location Qualified Codes: C16.9 - Malignant neoplasm of stomach, unspecified (6) Normocytic anemia Status: Chronic (7) DVT prophylaxis Status: Acute (8) Constipation Status: Acute Qualifiers: Constipation type: unspecified constipation type Qualified Codes: K59.00 - Constipation, unspecified (9) Full code status Status: Acute (10) Metastatic disease Status: Acute Clinical Quality Measures DVT/VTE Risk/Contraindication: Risk Factor Score Per Nursin RFS Level Per Nursing on Admit: 4+=Very High JUAN PABLO NEVAREZ MED STUDENT 03/17/18 1133: Subjective Subjective/Events-last exam Pt had a BM (very watery) and is feeling much better- reports he is finally hungry SOB has improved since yesterday, but still significant Objective Exam General Appearance: Cachetic, Severe Distress Respiratory: Accessory Muscle Use, Respiratory Distress, Wheezing Cardiovascular: Regular Rate, Rhythm, No Murmur, Normal Peripheral Pulses Gastrointestinal: Non Tender Extremity: No Pedal Edema Neurologic/Psychiatric: Alert, Oriented x3 Skin: Normal Color Assessment/Plan Assessment and Plan Assess & Plan/Chief Complaint Assessment: Pneumonia Constipation- resolved? Lung cancer with advanced status Anemia Cachexia Plan: Continue treatment plan Diagnosis/Problems Diagnosis/Problems (1) Pneumonia involving left lung Status: Acute Qualifiers: Pneumonia type: due to unspecified organism Lung location: unspecified part of lung Qualified Codes: J18.9 - Pneumonia, unspecified organism (2) Lung cancer Status: Acute Qualifiers: Laterality: left Lung location: overlapping sites Qualified Codes: C34.82 - Malignant neoplasm of overlapping sites of left bronchus and lung (3) Metastatic disease Status: Acute SANTI HUMPHRIES DO Mar 17, 2018 10:32 JUAN PABLO NEVAREZ MED STUDENT Mar 17, 2018 11:33
[2018-03-17 12:00] VITALS: BP 132/61
--- NOTE | 2018-03-17 12:58 | Progress Note (SOAP) ---
Subjective Date Seen by a Provider: Mar 17, 2018 Time Seen by a Provider: 12:50 Subjective/Events-last exam doing better. had large episode diarrhea/gas, feels more hungry now. Objective Exam Vital Signs Date Time Temp Pulse Resp B/P (MAP) Pulse Ox O2 Delivery O2 Flow Rate FiO2 03/17/18 11:03 91 High Flow N/C 7.00 03/17/18 10:53 91 5.00 03/17/18 08:00 99.0 111 18 137/74 (95) 94 Nasal Cannula 5.00 03/17/18 06:46 92 High Flow N/C 5.00 03/17/18 04:02 97.8 106 16 137/70 (92) 92 Nasal Cannula 5.00 03/17/18 02:30 93 High Flow N/C 5.00 03/17/18 00:07 97.7 114 20 131/72 (91) 93 Nasal Cannula 5.00 03/16/18 22:40 85 High Flow N/C 4.00 03/16/18 20:00 96 High Flow N/C 5.00 03/16/18 19:55 98.9 115 20 128/69 (88) 92 Nasal Cannula 4.00 03/16/18 19:07 91 High Flow N/C 4.00 03/16/18 16:10 98.6 114 22 131/73 (92) 93 Nasal Cannula 4.00 03/16/18 15:47 98 High Flow N/C 4.00 03/16/18 14:09 94 High Flow N/C 5.00 I & O 03/17/18 07:00 Intake Total 1000 ml Output Total 1100 ml Balance -100 ml Capillary Refill : Less Than 3 SecondsLess Than 3 Seconds General Appearance: No Apparent Distress HEENT: PERRL/EOMI Neck: Full Range of Motion Respiratory: Chest Non Tender, Rhonci Cardiovascular: Regular Rate, Rhythm Gastrointestinal: normal bowel sounds, soft Extremity: Normal Capillary Refill Neurologic/Psychiatric: Alert, Oriented x3 Skin: Normal Color Lymphatic: No Adenopathy Results Lab Microbiology 03/11/18 Blood Culture - Final, Complete No growth 03/11/18 MRSA Screen - Final, Complete MRSA not isolated Assessment/Plan Assessment/Plan Assess & Plan/Chief Complaint metatstatic adenoca, 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 bentyl for visceral pain. cont small doses mg citrate until significant BM. did have large BM and feels better now, however will recommend stool softeners/ laxatives/ high fiber regularly to prevent further episodes. Clinical Quality Measures DVT/VTE Risk/Contraindication: Risk Factor Score Per Nursin RFS Level Per Nursing on Admit: 4+=Very High SINAN HIGUERA MD Mar 17, 2018 12:58
[2018-03-17 16:35] VITALS: BP 131/71
--- NOTE | 2018-03-17 17:04 | Oncology Progress Note ---
Subjective Date Seen by a Provider: Mar 17, 2018 Time Seen by a Provider: 16:54 Subjective/Events-last exam Patient wants to go home for [place] with his family but he does not have enough family support for him to go home. He is OK to go to assisted and have his daughter to take him home on [place] day to spent time with them. Charles Devi and I had a long discussion with patient about the prognosis. He understood that his lung is in bad condition and he would like to be in DNR. Dr. Hawley then discussed about the hospice and patient accepted it. We tried to call his sister who initially wanted to take patient to [facility] but only got her voice mail. This case was also presented at tumor board conference today. The best option for him was the hospice. Pt had a large bowel movement yesterday and is feeling better today. Data Review Labs Laboratory Tests 03/15/18 05:27: White Blood Count 17.0H, Red Blood Count 3.37L, Hemoglobin 8.8L, Hematocrit 28L , Red Cell Distribution Width 16.8H, Neutrophils (%) (Auto) 86H, Lymphocytes (% ) (Auto) 5L, Neutrophils # (Auto) 14.5H, Lymphocytes # (Auto) 0.8L, Monocytes # (Auto) 1.6H Physical Exam Vital Signs Vital Signs - First Documented 03/11/18 03/11/18 08:47 13:32 Temp 94.8 Pulse 117 Resp 22 B/P (MAP) 116/83 (94) Pulse Ox 69 O2 Delivery Room Air O2 Flow Rate 10.00 FiO2 45 Capillary Refill : Less Than 3 SecondsLess Than 3 Seconds Height, Weight, BMI Height: 5'9.00" Weight: 127lbs. 2.0oz. 57.314324yb; 16.9 BMI Method:Stated General Appearance: No Apparent Distress Neck: Non Tender, Supple Respiratory: No Accessory Muscle Use, No Respiratory Distress, Crackles Gastrointestinal: Non Tender, Soft Extremity: Non Tender, No Calf Tenderness, No Pedal Edema Neurologic/Psychiatric: Alert, Oriented x3 Impression & Plan Impression & Plan A/P: 1. Terminal disease. Pt decided to go to hospice and transition assisted and spent a day at home at [place]. 2. Metastatic poorly differentiated carcinoma involving lungs, stomach and adrenal gland. Pt was on palliative chemotherapy with carboplatin and paclitaxel regimen x2 cycles with the last treatment 5 weeks ago. Disease progressed. 3. Severe constipation. He had a large bowel movement yesterday. Pt needs to be on stool softener regularly while on narcotics. 4. Bone mets and pain, continue current pain medication. 5. 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 Clinical Quality Measures DVT/VTE Risk/Contraindication: Risk Factor Score Per Nursin RFS Level Per Nursing on Admit: 4+=Very High SHALONDA GAITAN MD Mar 17, 2018 17:04
[2018-03-17 20:30] VITALS: BP 134/71
[2018-03-18 00:10] VITALS: BP 147/75
[2018-03-18] MEDS: PIPERACILLIN/TAZO 4.5 GM/NS 100 ML IV SCH ×2 (00:10)
[2018-03-18] MEDS: ACETAMINOPHEN 500 MG TAB (TYLENOL) PO PRN (00:50)
[2018-03-18] MEDS: RT-ALBUTEROL/IPRATROPIUM 3 ML (DUONEB) VIAL INH SCH ×3 (01:25→10:49)
[2018-03-18 04:00] VITALS: BP 153/76
[2018-03-18 08:00] VITALS: BP 133/65
[2018-03-18] MEDS: MAGNESIUM CITRATE 300 ML BTL PO SCH ×2 (09:16→13:00)
[2018-03-18] MEDS: SENNA W/DOCUSATE (SENOKOT S) TABLET PO SCH (09:16)
--- NOTE | 2018-03-18 10:05 | Progress Note-Hospitalist ---
SANTI HUMPHRIES DO 03/18/18 1005: Subjective HPI/CC On Admission Date Seen by Provider: Mar 18, 2018 Time Seen by Provider: 09:30 Subjective/Events-last exam Hospice conversation went well Will go home on hospice See dictated discharge summary Objective Exam Vital Signs Vital Signs Date Time Temp Pulse Resp B/P (MAP) Pulse Ox O2 Delivery O2 Flow Rate FiO2 03/18/18 15:05 101 20 132/66 94 Nasal Cannula 7.00 03/18/18 12:00 97.0 03/15/18 08:55 85 Capillary Refill : Less Than 3 SecondsLess Than 3 Seconds General Appearance: Chronically ill, Cachetic, Moderate Distress Respiratory: Accessory Muscle Use, Crackles Results/Procedures Lab Patient resulted labs reviewed. Assessment/Plan Assessment and Plan Assess & Plan/Chief Complaint Assessment: Pneumonia Lung cancer with advanced status s/p severe constipation requiring surgery consultation now resolved Anemia Cachexia Poor prognosis Plan: Appreciate DR Hamlin consultation Guarded prognosis Hospice and placement tomorrow Diagnosis/Problems Diagnosis/Problems (1) Pneumonia involving left lung Status: Acute Qualifiers: Pneumonia type: due to unspecified organism Lung location: unspecified part of lung Qualified Codes: J18.9 - Pneumonia, unspecified organism (2) Leukocytosis Status: Acute Qualifiers: Leukocytosis type: leukemoid reaction Qualified Codes: D72.823 - Leukemoid reaction (3) Low BMI Status: Chronic (4) Lung cancer Status: Acute Qualifiers: Laterality: left Lung location: overlapping sites Qualified Codes: C34.82 - Malignant neoplasm of overlapping sites of left bronchus and lung (5) Stomach cancer Status: Chronic Qualifiers: Malignant neoplasm of stomach location: unspecified location Qualified Codes: C16.9 - Malignant neoplasm of stomach, unspecified (6) Normocytic anemia Status: Chronic (7) DVT prophylaxis Status: Acute (8) Constipation Status: Resolved Qualifiers: Constipation type: unspecified constipation type Qualified Codes: K59.00 - Constipation, unspecified Resolution Date/Time: 03/16/18 @ 10:27 (9) Full code status Status: Acute (10) Metastatic disease Status: Acute Clinical Quality Measures DVT/VTE Risk/Contraindication: Risk Factor Score Per Nursin RFS Level Per Nursing on Admit: 4+=Very High JUAN PABLO NEVAREZ MED STUDENT 03/18/18 1027: Subjective Subjective/Events-last exam Pt is feeling much better today- very conversational during interview Had another BM this morning, still watery He was able to get to the bathroom and back to his bed for the first time this morning without becoming SOB Voice is still very hoarse Objective Exam General Appearance: Chronically ill, Cachetic, Moderate Distress, Thin Respiratory: Chest Non Tender, Accessory Muscle Use, Crackles Cardiovascular: Regular Rate, Rhythm, No Murmur, Normal Peripheral Pulses Extremity: Normal Inspection, No Calf Tenderness, No Pedal Edema Neurologic/Psychiatric: Alert, Oriented x3, Normal Mood/Affect Assessment/Plan Assessment and Plan Assess & Plan/Chief Complaint Assessment: Pneumonia Advanced lung cancer s/p severe constipation Cachexia Anemia Plan: Continue on 7L O2 D/c to hospice facility Diagnosis/Problems Diagnosis/Problems (1) Pneumonia involving left lung Status: Acute Qualifiers: Pneumonia type: due to unspecified organism Lung location: unspecified part of lung Qualified Codes: J18.9 - Pneumonia, unspecified organism (2) Lung cancer Status: Acute Qualifiers: Laterality: left Lung location: overlapping sites Qualified Codes: C34.82 - Malignant neoplasm of overlapping sites of left bronchus and lung (3) Constipation Status: Resolved Qualifiers: Constipation type: unspecified constipation type Qualified Codes: K59.00 - Constipation, unspecified Resolution Date/Time: 03/16/18 @ 10:27 (4) Normocytic anemia Status: Chronic (5) Stomach cancer Status: Chronic Qualifiers: Malignant neoplasm of stomach location: unspecified location Qualified Codes: C16.9 - Malignant neoplasm of stomach, unspecified SANTI HUMPHRIES DO Mar 18, 2018 10:05 JUAN PABLO NEVAREZ STUDENT Mar 18, 2018 10:27
[2018-03-18] MEDS: ENOXAPARIN 30 MG/0.3 ML (LOVENOX) SYR SC SCH (10:29)
[2018-03-18] MEDS ORDERED: OXYC20TA54 PO (11:57)
[2018-03-18] MEDS ORDERED: LORA2ORA PO (11:57)
[2018-03-18] MEDS ORDERED: SENN-20 PO (11:57)
--- NOTE | 2018-03-18 11:59 | Discharge Summary-Hospitalist ---
Diagnosis/Chief Complaint Date of Admission Mar 11, 2018 at 11:35 Date of Discharge Discharge Date: Mar 18, 2018 Discharge Diagnosis (1) Pneumonia involving left lung Status: Acute (2) Lung cancer Status: Acute (3) Constipation Status: Resolved (4) Normocytic anemia Status: Chronic (5) Stomach cancer Status: Chronic Discharge Summary Discharge Physical Exam Allergies: Coded Allergies: codeine (Verified Allergy, Unknown, 09/28/17) Vitals & I&Os Vital Signs Date Time Temp Pulse Resp B/P (MAP) Pulse Ox O2 Delivery O2 Flow Rate FiO2 03/18/18 15:05 101 20 132/66 94 Nasal Cannula 7.00 03/18/18 12:00 97.0 03/15/18 08:55 85 General Appearance: Chronically ill, Moderate Distress Respiratory: Accessory Muscle Use, Decreased Breath Sounds, Respiratory Distress Neurologic/Psychiatric: Alert, Oriented x3, No Motor/Sensory Deficits, Normal Mood/Affect Hospital Course Hospital course: Patient had a standard hospital course although complicated due to severe COPD and progressive and severe lung cancer. He was placed on empiric antibiotics placed on Vapotherm and pulmonology and oncology talked to patient about end-of-life and hospice frequently. Severe constipation resolved with the help of general surgery consultation and patient was deemed optimized on treatment and would be sent to be at [facility] on hospice with 7 L of oxygen with poor prognosis. Labs (last 24 hrs) Microbiology 03/11/18 Blood Culture - Final, Complete No growth 03/11/18 MRSA Screen - Final, Complete MRSA not isolated Patient resulted labs reviewed. Discussion & Recommendations Discharge Planning: <30 minutes discharge planning Discharge Home Medications: Active Scripts Active Lorazepam Intensol (Lorazepam) 2 Mg/1 Ml Oral.conc 1 Mg PO Q2H PRN Senna-Time S Tablet (Sennosides/Docusate Sodium) 1 Each Tablet 1 Ea PO BID Oxycontin (Oxycodone HCl) 20 Mg Tab.er.12h 20 Mg PO BID PRN Reported Protonix (Pantoprazole Sodium) 20 Mg Tablet.dr 20 Mg PO DAILY PRN Miralax (Polyethylene Glycol 3350) 17 Gm Powd.pack 17 Gm PO DAILY PRN Zofran (Ondansetron HCl) 8 Mg Tablet 8 Mg PO Q8H PRN Tums (Calcium Carbonate) 200 Mg Tab.chew 400 Mg PO Q4H PRN Instructions to patient/family Please see electronic discharge instructions given to patient. Clinical Quality Measures DVT/VTE Risk/Contraindication: Risk Factor Score Per Nursin RFS Level Per Nursing on Admit: 4+=Very High Problem Qualifiers (1) Pneumonia involving left lung: Pneumonia type: due to unspecified organism Lung location: unspecified part of lung Qualified Codes: J18.9 - Pneumonia, unspecified organism (2) Lung cancer: Laterality: left Lung location: overlapping sites Qualified Codes: C34.82 - Malignant neoplasm of overlapping sites of left bronchus and lung (3) Constipation: Constipation type: unspecified constipation type Qualified Codes: K59.00 - Constipation, unspecified (4) Stomach cancer: Malignant neoplasm of stomach location: unspecified location Qualified Codes: C16.9 - Malignant neoplasm of stomach, unspecified SANTI HUMPHRIES DO Mar 18, 2018 11:59
[2018-03-18 12:00] VITALS: BP 132/66
[2018-03-18 15:05] VITALS: BP 132/66
== END 2018-03-18 15:05 | disposition hospice, home (50) | DRG 871 ==
LOC: EDUNIT# 08:45 → ER 08:46 → ICU 11:35 → 4TH 03-12 16:00
PROVIDERS: ADMIT Family Medicine; ATTEND Family Medicine
DX: A41.9 Sepsis, unspecified organism (principal); J18.1 Lobar pneumonia, unspecified organism; J96.21 Acute and chronic respiratory failure with hypoxia; R64 Cachexia; C80.1 Malignant (primary) neoplasm, unspecified; C78.02 Secondary malignant neoplasm of left lung; C78.01 Secondary malignant neoplasm of right lung; C78.89 Secondary malignant neoplasm of other digestive organs; Z66 Do not resuscitate; C79.71 Secondary malignant neoplasm of right adrenal gland; C79.72 Secondary malignant neoplasm of left adrenal gland; C79.51 Secondary malignant neoplasm of bone; J98.11 Atelectasis; G89.3 Neoplasm related pain (acute) (chronic); I77.1 Stricture of artery; D64.9 Anemia, unspecified; K59.03 Drug induced constipation; T40.605A Adverse effect of unspecified narcotics, initial encounter; Z79.899 Other long term (current) drug therapy; Z87.891 Personal history of nicotine dependence; Z87.11 Personal history of peptic ulcer disease
CPT/HCPCS: 36415; 71045; 71260; 74019; 80048; 80053; 82962; 83605; 83735; 84100; 85007; 85025; 85027; 85610; 85730; 87040; 87081; 94640; 94664; 94760; 94761; 96361; 96365; 96375